=== PATIENT | female | born 1960 | race Caucasian/White ===

== ENCOUNTER → 2021-12-13 12:52 | Outpatient (CLI) | payer MEDICARE, MEDICAID, SELFPAY ==
--- NOTE | 2021-12-13 | DI.US.S_ITS ---
LIMITED ULTRASOUND OF RIGHT BREAST AND AXILLA: 12/13/2021 CLINICAL: Palpable right breast lump. Palpable right axilla lump. No prior exams were available for comparison. Color flow and real-time ultrasound of the right breast 11-12 o'clock, and axilla regions were performed. Noble scale images of the real-time examination were reviewed. There is a 0.8 cm x 0.6 cm x 0.8 cm irregular mass with a spiculated margin in the right breast at 11 o'clock anterior depth 1 cm from the nipple. This irregular mass is hypoechoic. This correlates with mammography findings. There also is a 1.4 cm x 1.5 cm x 1.6 cm irregular mass with a spiculated margin in the right breast at 12 o'clock middle depth. This correlates with mammography findings. Additionally, there is a 1.6 cm x 3.2 cm x 0.9 cm enlarged lymph node in the right axilla. This correlates with mammography findings. IMPRESSION: HIGHLY SUGGESTIVE OF MALIGNANCY The 0.8 cm x 0.6 cm x 0.8 cm irregular mass in the right breast at 11 o'clock anterior depth is highly suggestive of malignancy. The 1.4 cm x 1.5 cm x 1.6 cm irregular mass in the right breast at 12 o'clock middle depth is highly suggestive of malignancy. An ultrasound guided biopsy is recommended. The 1.6 cm x 3.2 cm x 0.9 cm enlarged lymph node in the right axillary tail is suggestive of malignancy. An ultrasound guided biopsy is recommended. This exam was interpreted at Station ID: [id number]. Electronically Signed By: John Corrales M.D. lc/:12/13/2021 14:33:05 letter sent: Biopsy Required Ultrasound BI-RADS: 5 Highly suggestive of malignancy
--- NOTE | 2021-12-13 | DI.MG.S_ITS ---
BILATERAL DIGITAL DIAGNOSTIC MAMMOGRAM 3D/2D: 12/13/2021 CLINICAL: Baseline by default, Right breast mass. No prior exams were available for comparison. Both breasts are heterogeneously dense, which may obscure small masses (category c / 51-75% glandular tissue). There is a biopsy site marker on the left breast. There is architectural distortion in the right breast at 11 o'clock anterior depth. This correlates as palpated. There also is an irregular lymph node in the right axillary tail. No other significant masses, calcifications, or other findings are seen in either breast. IMPRESSION: INCOMPLETE: NEEDS ADDITIONAL IMAGING EVALUATION The architectural distortion in the right breast at 11 o'clock anterior depth is indeterminate. An ultrasound is recommended. The irregular lymph node in the right axillary tail is indeterminate. Ultrasound report to follow. Based on the Tyrer Cuzick model (a risk assessment model) the patient's lifetime risk is 11.2% and her 10 year risk is 5.0%. According to the ACR, ACS, and NCCN guidelines, an annual breast MRI exam along with mammogram is recommended if the patient's lifetime risk is 20% or greater. This exam was interpreted at Station ID: [id number]. NOTE: For mammograms, a report in lay terms will be sent to the patient. Approximately 15% of breast malignancies will not be visualized mammographically. In the management of a palpable breast mass, a negative mammogram must not discourage biopsy of a clinically suspicious lesion. Electronically Signed By: John Corrales M.D. lc/:12/13/2021 14:29:43 ACR BI-RADS Category 0: Incomplete [id number]
== END ==
PROVIDERS: PCP Family Medicine; Referring Provider Family Medicine; Visit Provider Family Medicine
DX: N63.11 Unspecified lump in the right breast, upper outer quadrant (principal); N63.15 Unspecified lump in the right breast, overlapping quadrants; R59.0 Localized enlarged lymph nodes
CPT/HCPCS: 76642; 77066; G0279

== ENCOUNTER → 2022-01-14 14:01 | Outpatient (CLI) | payer MEDICARE, MEDICAID, SELFPAY ==
--- NOTE | 2022-01-14 | DI.MG.S_ITS ---
UNILATERAL RIGHT DIGITAL DIAGNOSTIC MAMMOGRAM 3D/2D: 01/14/2022 CLINICAL: Post clip placement. No prior exams were available for comparison. The right breast is heterogeneously dense, which may obscure small masses (category c / 51-75% glandular tissue). There is a marker clip in the appropriate position in the right breast posterior depth superior region seen on the mediolateral oblique view only. This marker clip placement is at the biopsy site. There also is a marker clip in the appropriate position in the right breast at 11 o'clock anterior depth. This marker clip placement is at the biopsy site. Additionally, there is a marker clip in the appropriate position in the right breast at 12 o'clock middle depth. This marker clip placement is at the biopsy site. IMPRESSION: POST PROCEDURE MAMMOGRAM FOR MARKER PLACEMENT There was a successful marker clip placement in the right breast posterior depth superior region seen on the mediolateral oblique view only. There was a successful marker clip placement in the right breast at 11 o'clock anterior depth. There was a successful marker clip placement in the right breast at 12 o'clock middle depth. Based on the Tyrer Cuzick model (a risk assessment model) the patient's lifetime risk is 11.2% and her 10 year risk is 5.0%. According to the ACR, ACS, and NCCN guidelines, an annual breast MRI exam along with mammogram is recommended if the patient's lifetime risk is 20% or greater. This exam was interpreted at Station ID: [id number]. NOTE: For mammograms, a report in lay terms will be sent to the patient. Approximately 15% of breast malignancies will not be visualized mammographically. In the management of a palpable breast mass, a negative mammogram must not discourage biopsy of a clinically suspicious lesion. Electronically Signed By: Fabricio coppola/papi:01/16/2022 20:12:15 ACR BI-RADS Category Post-procedure mammogram for marker placement
--- NOTE | 2022-01-14 | DI.US.S_ITS ---
ULTRASOUND GUIDED BIOPSY RIGHT BREAST WITH MARKING DEVICE INSERTED AND POST DIGITAL MAMMOGRAPHIC IMAGIN01/14/2022 CLINICAL: Right axillary node biopsy. PATIENT CONSENT: Risks (minor bleeding, infection, vasovagal reaction and repeat procedure), benefits and alternatives were explained to the patient and written informed consent was obtained. Correlation is made to exams dated: 01/14/2022 ultrasound biopsy, 01/14/2022 mammogram, 12/13/2021 ultrasound, 12/13/2021 mammogram - [facility], 02/15/2013 mammogram, and 02/03/2013 mammogram - [facility]. An ultrasound guided biopsy using real-time ultrasound was performed for the lymph node located in the right axillary tail. The skin was prepped in the usual manner. Local anesthetic was administered to the access site. A small incision was made in the breast. The abnormality was approached from the caudocranial aspect. A biopsy needle was placed adjacent to the abnormality under ultrasound guidance. Once the needle was documented to be in the correct location, three specimens were obtained using an Achieve automated firing device. A clip was inserted into the biopsy cavity. A skin adhesive was applied to the access site. Post procedure digital mammographic imaging demonstrates the location device at the targeted area. The specimens were sent to the laboratory for pathological analysis. IMPRESSION: ULTRASOUND GUIDED BIOPSY MALIGNANT Ultrasound guided biopsy of the lymph node in the right axillary tail was successful with no apparent post procedure complications. 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 Pathology results are concordant with imaging findings. This exam was interpreted at Station ID: [id number]. yovana Muñoz M.D., M.D./:01/22/2022 11:21:37
--- NOTE | 2022-01-14 | DI.US.S_ITS ---
MULTIPLE ULTRASOUND GUIDED BIOPSIES RIGHT BREAST USING VACUUM DEVICE WITH MARKING DEVICES INSERTED AND POST DIGITAL MAMMOGRAPHIC IMAGIN01/14/2022 CLINICAL: Two right breast mass. PATIENT CONSENT: Risks (minor bleeding, infection, vasovagal reaction and repeat procedure), benefits and alternatives were explained to the patient and written informed consent was obtained. No prior exams were available for correlation. An ultrasound guided biopsy using real-time ultrasound was performed for the solid mass located in the right breast at 11 o'clock anterior depth. This was described on the previous ultrasound report. The skin was prepped in the usual manner. Local anesthetic was administered to the access site. A small incision was made in the breast. The abnormality was approached from the lateral aspect. A biopsy needle was placed adjacent to the abnormality under ultrasound guidance. Once the needle was documented to be in the correct location, four specimens were obtained using the Mammotome biopsy system. The patient received additional local anesthetic during the procedure. A clip was inserted into the biopsy cavity. A skin adhesive was applied to the access site. Post procedure digital mammographic imaging demonstrates the location device at the targeted area. The specimens were sent to the laboratory for pathological analysis. A second ultrasound guided biopsy using real-time ultrasound was performed for the mass located in the right breast at 12 o'clock anterior depth. This was described on the previous ultrasound report. The skin was prepped in the usual manner. Local anesthetic was administered to the access site. A small incision was made in the breast. The abnormality was approached from the lateral aspect. A biopsy needle was placed adjacent to the abnormality under ultrasound guidance. Once the needle was documented to be in the correct location, four specimens were obtained using the Mammotome biopsy system. The patient received additional local anesthetic during the procedure. A clip was inserted into the biopsy cavity. Post procedure digital mammographic imaging demonstrates the location device at the targeted area. The specimens were sent to the laboratory for pathological analysis. IMPRESSION: ULTRASOUND GUIDED BIOPSY MALIGNANT Ultrasound guided biopsy of the solid mass in the right breast at 11 o'clock anterior depth was successful with no apparent post procedure complications. Pathology indicates malignant invasive lobular carcinoma (IL). Pathology results are concordant with imaging findings. Ultrasound guided biopsy of the mass in the right breast at 12 o'clock anterior depth was successful with no apparent post procedure complications. Pathology indicates malignant invasive lobular carcinoma (IL). Pathology results are concordant with imaging findings. This exam was interpreted at Station ID: [id number]. Fabricio Grady M.D. John coppola,yovana/papi:01/22/2022 11:20:07
--- NOTE | 2022-01-14 | PATH_ITS ---
[facility] Accession Number: [id number] No. of containers..03 Tissue . 01 Material submitted: . PART A: breast - RIGHT BREAST MASS 11:00 1 CM FN PART B: breast - RIGHT BREAST MASS 12:00 4 CM FN PART C: lymph node - RIGHT AXILLA LYMPH NODE . 01 Clinical history: . UNSPECIFIED LUMP IN THE RIGHT BREAST X3 . 01 Diagnosis: A. Right Breast Mass, 11 o'clock, 1 cm from the Nipple, Biopsy: Invasive (lobular) carcinoma, grade 2 of 3 ([place] combined histologic grade, total score 6/9) with the following features: 1. Nuclear pleomorphism: Intermediate. (2/3) 2. Mitotic rate: Low. (1/3) 3. Tubular differentiation: None. (3/3) 4. Size of invasive carcinoma: present on multiple cores, single largest dimension of at least 7 mm in this sample. 5. Ductal carcinoma in situ: Not present. 6. Calcifications: Not present. 7. Lymphatic invasion: Absent in this specimen. 8. Prognostic markers: -Estrogen receptor status: Positive (>90% tumor cells staining, staining intensity: Strong). -Progesterone receptor status: Positive (>95% tumor cells staining, staining intensity: Strong). -HER2 status: Negative for protein overexpression by immunohistochemistry (0). . B. Right Breast Mass, 12 o'clock, 4 cm from the Nipple, Biopsy: Invasive (lobular) carcinoma, grade 2 of 3 ([place] combined histologic grade, total score 6/9) with the following features: 1. Nuclear pleomorphism: Intermediate. (2/3) 2. Mitotic rate: Low. (1/3) 3. Tubular differentiation: None. (3/3) 4. Size of invasive carcinoma: present on multiple cores, single largest dimension of at least 5.5 mm in this sample. 5. Ductal carcinoma in situ: Not present. 6. Calcifications: Present in association with invasive carcinoma. 7. Lymphatic invasion: Absent in this specimen. 8. Prognostic markers: -Estrogen receptor status: Positive (more than 95% tumor cells staining, staining intensity: Strong). -Progesterone receptor status: Positive (more than 95% tumor cells staining, staining intensity: Strong). -HER2 status: Negative for protein overexpression by immunohistochemistry (0). . C. Right Axillary Lymph Node, Biopsy: Metastatic lobular carcinoma involving lymphoid tissue. Size of largest metastatic deposit: at least 1 mm. . COMMENT: The invasive carcinoma in both parts A and B are histologically and immunophenotypically similar. [facility] 01/17/2022 1658 Local . 01 Electronically signed: . Caroline Curry MD, Pathologist NPI- [id number] . 01 Gross description: . Received three formalin-filled containers, each labeled with the patient's name: . A. In a container labeled RT 11 o'clock 1 cm FN breast, the specimen is received with a plastic filter in container, sample loose in container and consists of multiple light yellow-patton portions of soft tissue which range in size from less than 0.1 cm to 0.4 x 0.2 x 0.2 cm. The specimen is filtered, wrapped, and entirely submitted in cassette A. B. In a container labeled RT breast 12 o'clock 4 cm FN, the specimen is received with a plastic filter in container, sample loose in container and consists of multiple fragments of light yellow-patton tissue and blood which range in size from less than 0.1 cm to 0.5 x 0.4 x 0.3 cm. The specimen is filtered and entirely submitted in cassette B. C. In a container labeled RT axilla LN, are three extremely tiny fragments of light chong-patton tissue which measure 0.1 x 0.1 x 0.1 cm in aggregate. All fragments are totally submitted in cassette C. . Possible collection date and time per requisition: 01/14/22 at 16:14. Total fixation time: Approximately 12 hours. ([id number]) /[facility] 01/15/2022 0236 Local . 01 Microscopic: . Parts A and B: Beta-catenin and e-cadherin are performed in order to assess the invasive carcinoma, with appropriately staining external controls. In both parts, there is loss of membranous staining of the invasive carcinoma, in support of lobular phenotype. . In part C, Bhupinder immunostain highlights the metastatic carcinoma. . Crushing artifact in part A limits histologic assessment. . Predictive marker immunohistochemical studies are performed on blocks A1 and B1 with the invasive carcinoma showing the following results: Part A: - Estrogen receptor status: Positive (more than 90% tumor cells staining, staining intensity: Strong). - Progesterone receptor status: Positive (more than 95% tumor cells staining, staining intensity: Strong). - HER2 status: Negative for protein overexpression by immunohistochemistry (0). . Part B: - Estrogen receptor status: Positive (more than 95% tumor cells staining, staining intensity: Strong). - Progesterone receptor status: Positive (more than 95% tumor cells staining, staining intensity: Strong). - HER2 status: Negative for protein overexpression by immunohistochemistry (0). . Cold ischemic time is <5 minutes. The scoring criteria for breast biomarkers by immunohistochemistry is based on the ASCO/CAP guidelines (Zohreh AC et al, J Clin Oncol: 2017Oct 27;36(20):6481-2221 and Robles ME et al, Arch Pathol Lab Med: 2009;134(6):907-22). Deparaffinized sections of formalin fixed tissue (along with appropriate positive controls) are incubated with the above antibody(s). Using the automated Rathbun stainer, tissue is incubated with the designated antibody which is then localized by a non-biotin, dual polymer detection system. The external controls are reviewed for appropriate reactivity and found to be adequate. Results on the target cell population are indicated above. These tests have not been validated on decalcified tissue. This test was developed and its performance characteristics determined by [employer]. It has not been cleared or approved by the U.S. Food and Drug Administration. The FDA has determined that such clearance or approval is not necessary. This test is used for clinical purposes. It should not be regarded as investigational or for research. . 01 Pathologist provided ICD-10: C50.919 . 01 CPT . 334367, 740400, 887621, T04697, O52007, 401553, [id number], [id number] Specimen Comment: A courtesy copy of this report has been sent to [phone] Performed at: 01 [facility] [address], [place], [place] [id number] MD Hunter Evans MD Phone: [phone]
== END ==
PROVIDERS: PCP Family Medicine; Referring Provider Family Medicine; Visit Provider Family Medicine
DX: C50.411 Malignant neoplasm of upper-outer quadrant of right female breast (principal); C50.811 Malignant neoplasm of overlapping sites of right female breast; C77.3 Secondary and unspecified malignant neoplasm of axilla and upper limb lymph nodes; Z17.0 Estrogen receptor positive status [ER+]
CPT/HCPCS: 19083; 19084; 38505; 76942; 77065

== ENCOUNTER → 2022-02-12 10:14 | Outpatient (CLI) | payer MEDICARE, MEDICAID, SELFPAY ==
--- NOTE | 2022-02-12 10:16 | DI.CT.S_ITS ---
PROCEDURE: CT CHEST ABD PEL W CON INDICATIONS: Breast cancer TECHNIQUE: After the administration of oral and intravenous contrast, axial sections acquired from the supraclavicular neck to the pubic symphysis. Coronal and sagittal reformats were performed. For radiation dose reduction, the following was used: automated exposure control, adjustment of mA and/or kV according to patient size. COMPARISON: [facility], CT, KUB - CT (PNL), 01/13/2013, 12:40. CT, CT CHEST WO CON, 12/10/2016, 10:47. [facility], US, US ABDOMEN COMPLETE, 09/05/2020, 12:15. [facility], CT, CT CHEST WITH CONTRAST, 09/05/2020, 12:46. FINDINGS: Image quality: Excellent. CHEST: Lower Neck: No adenopathy. Thyroid: Unremarkable. Axillae: There is mildly prominent lymph node with a biopsy clip in the right axilla. There is a 1.0 cm lymph node also in the right axilla level one. Nonenlarged level two lymph nodes are seen. No left axillary adenopathy. Chest Wall: Biopsy changes in the right breast. No abnormal chest wall mass. Lungs and Airways: Central and peripheral airways are normal. No suspicious nodules or consolidations Pleura: No pneumothorax or pleural effusions. Heart: Heart size is normal. No pericardial effusion. Moderate coronary artery calcification. Thoracic Vessels: The aorta and pulmonary arteries demonstrate normal size. Mediastinum and Lola: No enlarged lymph nodes. Esophagus: No wall thickening. No hiatal hernia. ABDOMEN: Liver: The liver is normal size and mildly decreased in overall attenuation. A 1 cm hypodensity is present anterior in segment two, previously characterized to be a cyst. No other liver lesions. Gallbladder: Normal. Biliary ducts: Nondilated. Pancreas: Normal. Spleen: Normal size. Adrenal Glands: 1.7 cm low-density left adrenal mass, stable. No right adrenal nodules. Kidneys and Ureters: Symmetric enhancement. No nephrolithiasis or hydronephrosis. No hydroureter. Stomach and Bowel: Stomach and small bowel loops are within normal limits. The mid to distal colon is diffusely decompressed. Occasional distal sigmoid diverticulosis. The appendix was not seen Peritoneum: No abnormal intraperitoneal fluid. No free air. Ventral Wall: No hernia. Abdominal Nodes: No retroperitoneal or mesenteric adenopathy by size criteria. Vessels: Aorta and inferior vena cava are normal in size. Moderate abdominal aortic atherosclerotic calcification. Retro aortic left renal vein. PELVIS: Pelvic Organs: Vertically oriented uterus is age-appropriate. Normal ovarian tissue. No suspicious adnexal masses. Bladder: Normal. Pelvic Nodes: Indeterminate 1.1 cm irregular nodule in the left common femoral/inguinal region with mild surrounding inflammatory changes. No other enlarged pelvic lymph nodes are seen. Miscellaneous: No inguinal hernias are seen. Bones: There is severe scoliosis with degenerative endplate sclerosis at multiple levels. No suspicious bone lesions or vertebral body fractures. IMPRESSION: 1. Biopsied right breast lesions and biopsied mild right axillary adenopathy. 2. Indeterminate inflammatory nodule in the left common femoral region, possibly lymph node but no other pelvic adenopathy is seen. Comparison to remote prior CT demonstrated an inguinal hernia in this region which is no longer present, and therefore this finding may be secondary to hernia repair. 3. No other areas of adenopathy or metastatic disease in the chest, abdomen, or pelvis. 4. 1.7 cm left adrenal nodule, probably an adenoma. This is stable compared to recent priors and minimally enlarged compared to remote prior study. 5. Hepatic steatosis. Dictated by: Karena Brannon M.D. on 02/12/2022 at 14:10 Approved by: Karena Brannon M.D. on 02/12/2022 at 14:29
== END ==
PROVIDERS: PCP Family Medicine; Referring Provider Internal Medicine Hematology & Oncology; Visit Provider Internal Medicine Hematology & Oncology
DX: C50.911 Malignant neoplasm of unspecified site of right female breast (principal); E27.9 Disorder of adrenal gland, unspecified; K76.0 Fatty (change of) liver, not elsewhere classified
CPT/HCPCS: 71260; 74177; Q9967

== ENCOUNTER → 2022-02-14 08:37 | Outpatient (CLI) | payer MEDICARE, MEDICAID, SELFPAY ==
--- NOTE | 2022-02-14 08:39 | DI.NM.S_ITS ---
PROCEDURE: NM BONE SCAN WHOLE BODY RADIOPHARMACEUTICAL: 21.5 mCi Tc-99m MDP IV. INDICATIONS: Breast cancer TECHNIQUE: Delayed whole-body scintigrams were obtained approximately 3-4 hours after intravenous injection of radiotracer. Anterior and posterior views were acquired from vertex to feet. Additional left and right oblique views of the spine were obtained. COMPARISON: [facility], CT, CT CHEST ABD PEL W CON, 02/12/2022, 12:03. FINDINGS: Physiologic uptake is noted within the kidneys and bladder. Marked S-shaped scoliotic curvature is present within the thoracolumbar spine. Minimal scattered areas of presumed degenerative uptake are noted within the shoulders and feet. There is an appearance of mild increased uptake within the right lateral 7th 8th and 9th ribs. There is no abnormality within this region on CT scan of 02/12/2022. IMPRESSION: Small areas of presumed degenerative uptake. Mild increased uptake within the posterior right 7th, 8th and 9th ribs possibly artifactual as no corresponding abnormality is identified on CT. Attention to this region on follow-up imaging is recommended as metastatic disease cannot be definitively excluded. Dictated by: Humera Cox M.D. on 02/14/2022 at 16:02 Approved by: Humera Cox M.D. on 02/14/2022 at 16:07
== END ==
PROVIDERS: PCP Family Medicine; Referring Provider Internal Medicine Hematology & Oncology; Visit Provider Internal Medicine Hematology & Oncology
DX: C50.911 Malignant neoplasm of unspecified site of right female breast (principal)
CPT/HCPCS: 78306; A9503

== ENCOUNTER → 2022-02-20 09:31 | Outpatient (CLI) | payer MEDICARE, MEDICAID, SELFPAY ==
[2022-02-20 11:11] LABS: COVID19 -Nasal RAPID Negative (Negative)
== END ==
PROVIDERS: PCP Family Medicine; Visit Provider Surgery
DX: Z01.812 Encounter for preprocedural laboratory examination (principal); Z20.822 Contact with and (suspected) exposure to COVID-19
CPT/HCPCS: 87635

== ENCOUNTER 2022-02-21 10:48 | Day surgery (SDC) | payer MEDICARE, MEDICAID, SELFPAY ==
[2022-02-18 07:51] VITALS: BMI 21.3
--- NOTE | 2022-02-21 | PATH_ITS ---
[facility] Accession Number: [id number] . 01 Material submitted: . PART A: breast - RIGHT BREAST TISSUE PART B: lymph node - RIGHT AXILLARY NODES . 01 Diagnosis: A. Right Breast Tissue, Mastectomy: Invasive (lobular) carcinoma, with pleomorphic features, grade 3 of 3 (Mary Kate combined histologic grade, total score 8/9) with the following features: 1. Tumor size (invasive component): 8.2 cm by gross measurement. 2. Nuclear pleomorphism: High. (3/3); see comment. 3. Mitotic rate: Intermediate. (2/3); see comment. 4. Tubular differentiation: None. (3/3) 5. Ductal carcinoma in situ: Present, low to intermediate grade, without necrosis, and the following extent: - Present on more than one slide (5 slides with DCIS), spanning approximately at least 41 mm. 6. Calcifications: Present, in association with invasive carcinoma, ductal carcinoma in situ, and benign breast tissue. 7. Lymphatic invasion: Present. 8. Resection margins: - Invasive carcinoma with the closest distances to margins as follows: - Superficial inferior: Less than 0.5 mm (block A5). - Superficial superior: 1.8 mm (A10). - All remaining margins: More than 2 mm. - DCIS with the closest distances to margins as follows: - Superficial inferior: see comment. - All remaining margins: More than 2 mm. 9. Prognostic markers: Performed on prior biopsy ([id number], 01/15/2022), per report: - Estrogen receptor: Positive. - Progesterone receptor: Positive. - HER2: Negative by immunohistochemistry (0). - HER2 repeated on mastectomy specimen, block A2: Equivocal for protein overexpression by immunohistochemistry (2+); FISH studies for HER2 gene amplification are pending and the results will be reported in an addendum. 10. Regional lymph node status: - One intramammary lymph node, negative for carcinoma (0/1). - Nine out of nine lymph nodes, positive for carcinoma (9/9) (see right axillary node dissection, part B). - Size of largest metastatic deposit: 16 mm. - Extranodal extension: Focally present. 11. Additional findings: - Skin and nipple invaded by invasive carcinoma (no ulceration seen). - Skeletal muscle and/or chest wall are not present for evaluation. - Biopsy site changes are present. 12. Pathologic stage: pT3 pN2a. . B. Right Axillary Lymph Nodes, Dissection: Nine out of nine lymph nodes, positive for carcinoma (9/9). Size of largest metastatic deposit: 16 mm. Extranodal extension: Focally present. . COMMENT: At the superficial inferior margin (Block A5), over a span of 3 mm, low- to intermediate-grade DCIS is seen within 0.5 mm from ink. Although not technically ink on DCIS, in one focus, it is very close to ink (less than few fibroblasts), and appears cauterized. . Most of the invasive carcinoma consists of grade 2 invasive lobular carcinoma (with intermediate nuclear grade and low mitotic activity); however, scattered foci of higher grade morphology consisting of a moderate degree of mitotic rate and high nuclear pleomorphism are noted. They are evaluated with e-cadherin and demonstrate aberrant staining which is interpreted as negative. These areas are interpreted as invasive lobular carcinoma with pleomorphic features. V 02/28/2022 1449 Local . 01 Electronically signed: . Caroline Curry MD, Pathologist NPI- [id number] . 01 Gross description: . A. Received: In formalin, labeled with the patient's name, and right breast tissue long stitch lateral. Specimen: Oriented right breast simple mastectomy with presumed nipple areolar complex. Weight: 455 g. Measurement: 4.6 cm anterior to posterior, 14.7 cm medial to lateral, and 14.5 cm superior to inferior. Skin ellipse: Present measuring 14.5 x 10.7 cm with a patton congested cutaneous surface; no ulceration or Peau d'Clifford noted. Nipple/areola: 1.0 x 0.9 cm everted nipple with an ill-defined areola measuring approximately 3.1 x 2.3 cm. The nipple-areola complex is diffusely covered by friable, patton-brown, verrucoid projections on the skin of the nipple and areola in an area measuring 4.1 x 2.2 cm and located 2.7 cm from the nearest supero-medial skin margin. The nipple is firm upon palpation (photographs taken). Axillary tail: Submitted as part B. Margins: The skin ellipse is oriented by the surgeon with a long lateral stitch per the requisition. A second shorter double stitch is identified at the superior aspect of the ellipse without designation per the requisition or the container. The posterior surface is covered by disrupted fascia and is inked black. The superficial soft tissue margins are unremarkable, adjacent to the skin, and are inked blue for superficial superior and green for superficial inferior. Sliced: From lateral to medial into 18 slices. Lesion: One contiguous lesion, appears to involve upper inner and outer quandrants, and extending into lower inner quadrant. Lesion #1: Description: Large yellow to white, hard lesion located centrally with a hemorrhagic biopsy cavity within slices 12-14 and located 0.4 cm from the nearest anterior-superior margin. No biopsy clip is identified. Size: 8.2 x 6.9 x 2.7 cm. Slices involved: Slices 4-17 located throughout the central area of the breast. Distance to margins: 0.4 cm to the superficial superior margin, 0.9 cm from the posterior-inferior junction, 1.3 cm from the posterior margin, 0.5 cm from the superficial inferior margin, and grossly involves the skin, nipple, and areolar complex, but not at skin margins. Other: The remaining cut surfaces are yellow to white fibroadipose tissue with fibrous tissue occupying less than 10% of the cut surface. A single patton, well-circumscribed nodule is identified within slices 1 and 2 consistent with lymph node candidate measuring 0.6 x 0.6 x 0.5 cm. No additional lesions are identified. Fixation time: The specimen was removed on 02/21/22, time not provided, cold ischemic time cannot be calculated, total fixation time is approximately 55 hours. Veneer Splicer sections are submitted as follows: A1-A2: Entire nipple, bisected. A3: Slice 11 lesion to skin. A4: Slice 6 lesion to posterior margin. A5: Slice 9 lesion to closest superficial-inferior margin. A6-A8: Slice 10 lesion from posterior to superficial superior margins (A6-lesion to posterior margin, A7-lesion no margins, A8-lesion to anterior superior margin). A9: Slice 11 lesion to superficial superior margin. A10: Slice 12 biopsy site to nearest superficial superior margin. A11: Slice 13 biopsy site to superficial superior margin. A12: Slice 14 biopsy site to superficial superior margin. A13: Slice 11 lesion to superficial inferior margin. A14: Slice 3 no lesion lateral. A15: Slice 18 no lesion medial. A16: Slice 1 and 3 bisected lymph node candidate. A17: Upper outer quadrant no lesion. A18: Lower outer quadrant no lesion. A19: Upper inner quadrant no lesion. A20: Lower inner quadrant no lesion. Additional sections are submitted as follows, after review by Dr. Curry: A21-A22: Perpendicular slice 1 lateral margin. A23: Veneer Splicer slice 2 grossly negative. A24: Veneer Splicer slice 15 lesion to superficial superior margin. A25: Veneer Splicer slice 16 lesion to superficial superior margin. A26: Veneer Splicer slice 17 lesion to posterior margin. A27-A28: Veneer Splicer slice 18 medial margin perpendicular. A29: Veneer Splicer slice 5 lesion to superficial inferior margin. A30: Veneer Splicer slice 5 lesion to superficial inferior skin margin. A31: Veneer Splicer slice 14 lesion to superficial superior skin margin. ([id number]) B. Received in formalin, labeled with the patient's name and right axillary nodes, and consists of multiple fragments of unoriented yellow lobulated fibroadipose tissue with no attached skin, weighing 87 g and aggregating to 9.3 x 8.7 x 2.5 cm. Palpation reveals eight white to patton, firm lymph node candidates ranging from 0.5 cm to 2.1 cm in greatest dimension. Also identified within the adipose is a large area possibly consistent with matted lymph nodes versus one lymph node measuring measuring 6.1 x 2.7 x 1.5 cm. Sectioning this area reveals a vision biopsy clip and fat in association with grossly positive lymph node of approximate largest diameter of 1.6 cm. Veneer Splicer sections are submitted as follows: B1: Single serially sectioned lymph node candidate. B2: Single bisected lymph node candidate. B3: Single bisected lymph node candidate. B4: Single bisected lymph node candidate. B5: Single bisected lymph node candidate. B6: Single bisected lymph node candidate. B7: Single bisected lymph node candidate. B8: Single intact lymph node candidate. B9-B10: Veneer Splicer one lymph node versus matted area (biopsy site in B9). The specimen is removed on 02/21/22, time not provided, cold ischemic time cannot be calculated. Total fixation time is approximately 55 hours. ([id number]) /FRR 02/28/2022 1449 Local . 01 Microscopic: . A panel of immunostains is performed on block A5 in order to assess the intraductal neoplastic proliferation at the margin, as well as foci suspicious for lymphovascular space invasion close to the superficial inferior margin. The following represents the immunohistochemical findings: . D2-40: Present around invasive carcinoma within lymphatic system, not at, but close to superficial inferior margin. P63: Negative around areas of lymphovascular space invasion. E-cadherin and beta-catenin: Positive within intraductal proliferation, in support of ductal carcinoma in situ, and negative within the invasive carcinoma, in support of lobular phenotype. . PIOTR immunostain is obtained on block A11 in order to evaluate the invasive lobular carcinoma at the posterior margin adjacent to extensive histiocytic inflammation due to biopsy site, and is neagtive at the areas of interest/at the margin. . Within block A2, areas of higher grade morphology are evaluated for ductal phenotype with E-cadherin immunostain. Wisp, weak and discontinuous staining is present, which is interpreted as negative and/or aberrant immunoreactivity, in support of pleomorphic features in a lobular carcinoma. The rest of the invasive carcinoma is entirely negative. . Her2 predictive marker immunohistochemical study is repeated on block A2, to evaluate areas of higher grade morphology within the invasive carcinoma, and shows the following results: . Her2 (4B5) (repeated, block A2): Equivocal for protein overexpression by immunohistochemistry (2+). FISH studies for Her2 gene amplification are pending, and the results will be reported in an addendum. . Cold ischemic time is <5 minutes. The scoring criteria for breast biomarkers by immunohistochemistry is based on the ASCO/CAP guidelines (Zohreh AC et al, J Clin Oncol: 2017Oct 27;36(20):1366-7017 and Robles ME et al, Arch Pathol Lab Med: 2009;134(6):907-22). Deparaffinized sections of formalin fixed tissue (along with appropriate positive controls) are incubated with the above antibody(s). Using the automated Domino stainer, tissue is incubated with the designated antibody which is then localized by a non-biotin, dual polymer detection system. The external controls are reviewed for appropriate reactivity and found to be adequate. Results on the target cell population are indicated above. These tests have not been validated on decalcified tissue. This test was developed and its performance characteristics determined by [facility]. It has not been cleared or approved by the U.S. Food and Drug Administration. The FDA has determined that such clearance or approval is not necessary. This test is used for clinical purposes. It should not be regarded as investigational or for research. . 01 Pathologist provided ICD-10: C50.811 . 01 CPT . 254707, 264041, C36515, T48123, 327936 Specimen Comment: A courtesy copy of this report has been sent to [phone] Performed at: 01 [facility] [address] [place] [address], [place], [place] [id number] MD Hunter Evans MD Phone: [phone]
[2022-02-21 11:41] VITALS: BMI 21.3
[2022-02-21] MEDS: LACTATED RINGERS 1,000 ML 100 ML IV (12:12)
[2022-02-21] MEDS: ALBUTEROL/IPRATROPIUM 3 ML AMPUL INH ×2 (12:12→16:11)
--- NOTE | 2022-02-21 13:17 | PM.PREOP ---
Pre-operative Note Interval Note History & Physical reviewed/Exam performed by Physician: Yes Changes to H&P: No
[2022-02-21] MEDS: CEFAZOLIN 2 GM/100 ML PREMIX 100 ML IV (13:54)
[2022-02-21] MEDS: BUPIVACAINE 0.25% (PF) VIAL 30 ML INJ (14:08)
--- NOTE | 2022-02-21 14:19 | SUR.OPER ---
Supine on padded OR bed, gel donut, arms secured on padded arm boards at <90 degrees abduction, legs uncrossed, safety belt at thigh, tape over blanket over lower legs. Right arm bent at elbow restin on padded armboard parallel to head supported with gel pads at forearm and wrist.
[2022-02-21 15:12] VITALS: BP 176/97; PULSE 102; RESP 27; TEMP 36.7; O2SAT 91
[2022-02-21 15:17] VITALS: BP 145/89; PULSE 89; RESP 17; O2SAT 97
[2022-02-21 15:22] VITALS: BP 163/96; PULSE 88; RESP 15; TEMP 36.6; O2SAT 97
[2022-02-21] MEDS: fentaNYL 100 MCG/2 ML INJ 50 MCG IV (15:28)
[2022-02-21] MEDS: OXYCODONE IR 5 MG TABLET PO ×2 (15:33→15:51)
--- NOTE | 2022-02-21 15:39 | P.OP_ITS ---
Operative Date/Time/Diagnoses Date of procedure: 02/21/22 Time of procedure: 15:39 Pre-op diagnosis: Right breast cancer Post-op diagnosis: same Procedure & Clinicians Procedure: Right mastectomy and axillary lymph node dissection Same procedure as scheduled: Yes Indications: 61-year-old woman with biopsy-proven right breast cancer and biopsy-proven positive axillary node here for mastectomy and axillary dissection Surgeon: Derian Can Anesthesia Type: General Operative Notes Findings: Large central tumor. Multiple firm lymph nodes within the axilla Specimen(s): other (Right mastectomy. Axillary content) Estimated Blood Loss (mL): 50 Procedure in detail: Patient was brought to the operating room placed supine on the table. Bilateral lower extremity compression devices were applied. She received 2 g of Ancef prior to skin incision. She was intubated with an endotracheal tube. She was then prepped and draped in sterile fashion. Time-out was performed. I injected 1 mL of methylene blue diluted with 4 ml saline into the periareolar tissue and massaged it into the breast for 5 minutes. An elliptical incision around the nipple areola complex was made with the knife. The subcutaneous tissue was divided with electrocautery. Skin flaps were raised to separate the breast tissue from the skin along the subdermal plexus. The dissection was extended superior to the clavicle, medial to the sternum, inferior the the inframamary fold and lateral to the anterior border of the latisimus dorsi. Next the breast tissue was from the underlying pectoralis fascia. The breast was passed off the field marked short stitch superior long stitch lateral. The anterior flap was thick compared to the others and therefore an additional margin, anterior margin was taken stitch avina the true margin. The boundaries of the axilla were defined the lateral edge of the pectoralis, the latissimus and the axillary vein. Along the chest wall the neurovascular structures were identified and protected. The axillary content lateral and beneth the pectoralis minor up to the level of the axillary vein was then skelonized using sharp dissection and hemoclips. The axillary content contained multiple firm lymph nodes. A 19 Turkmen Viral drain was placed into the cavity and secured. The wound was copiously irrigated and homeostasis was ensured. The mastectomy was closed with 3 0 Vicryl for the subcutaneous tissue. There was minimal subcutaneous tissue and therefore skin vineet were used to close the skin. Patient tolerated procedure well she emerged from anesthesia was extubated and transferred to recovery room in stable condition. Complications: none Post-operative Condition: stable Disposition: same day surgery
[2022-02-21 15:42] VITALS: BP 157/81; PULSE 78; RESP 25; TEMP 36.6; O2SAT 97
== END 2022-02-21 16:50 | disposition home or self-care (01) ==
PROVIDERS: PCP Family Medicine; Referring Provider Surgery; Visit Provider Surgery
PROC: 0HTT0ZZ Resection of Right Breast, Open Approach (ICD-10-PCS; CPT 19303; principal; 2022-02-21 12:30)
DX: C50.811 Malignant neoplasm of overlapping sites of right female breast (principal); Z17.0 Estrogen receptor positive status [ER+]; F17.210 Nicotine dependence, cigarettes, uncomplicated; J44.9 Chronic obstructive pulmonary disease, unspecified; E03.9 Hypothyroidism, unspecified; C77.3 Secondary and unspecified malignant neoplasm of axilla and upper limb lymph nodes
CPT/HCPCS: 19307; J0690; J1100; J2405; J2704; J3010

== ENCOUNTER → 2022-03-10 09:12 | Outpatient (CLI) | payer MEDICARE, MEDICAID, SELFPAY ==
--- NOTE | 2022-03-10 09:14 | DI.ECHO.S_ITS ---
[facility] +---------+ : : [address] : : [place], [place] : : : : [id number] : : : : Phone: [phone]+ Echocardiogram Report + + :Name: BETH CARRERO Study Date: 03/10/2022 Height: 65 in : :[facility] ReadingLocation: Weight: 132 lb : : Gender: Female BSA: 1.7 m2 : :: 1960 Age: 61 yrs BP: 148/84 mmHg: :Reason For Study: BREAST CANCER : :Ordering Physician: ELIZABETH, : :LYDIA Performed By: Kristi Lowery : :Referring: LYDIA JOHNSON : + + Interpretation Summary Normal left ventricle size with ejection fraction 55-60%. Left ventricular global longitudinal strain average is -17.8%. Procedure: A two-dimensional transthoracic echocardiogram with color flow and Doppler was performed in limited views only to assess left venticular function.. The study quality was technically adequate. There is no prior echocardiogram noted for this patient. The patient was in sinus rhythm with heart rates between 68-72 bpm during the exam. Left Ventricle: The left ventricle is normal in size and wall thickness. The ejection fraction is estimated to be 55-60%. Left ventricular global longitudinal strain average is -17.8%. Right Ventricle: The right ventricle is normal in size and function. Atria: The left atrium grossly appears normal in size. Right atrial size is normal. Aortic Valve: The aortic valve is trileaflet. The aortic valve opens well. Tricuspid Valve: The tricuspid valve leaflets are thin and pliable. There is trace tricuspid regurgitation. Pulmonary artery pressures cannot be estimated because of the lack of a measurable TR jet velocity. Great Vessels: The IVC is of normal diameter and collapses greater than 50% with a sniff. This suggests a low right atrial pressure of 3 mm Hg. Pericardium/ Pleura There is no pericardial effusion. There is no pleural effusion. MMode/2D Measurements & Calculations LVIDd: 5.1 cm LA A4 area: 17.3 cm2 LVIDs: 3.8 cm LA length (vol): 5.1 cm FS: 25.9 % EPSS: 0.46 cm IVSd: 0.95 cm LVPWd: 0.95 cm LV gomez. diameter/BSA (cm/m^2): 3.1 LV sys. diameter/BSA (cm/m^2): 2.3 RA long axis: 4.7 cm RVD1 (basal): 3.2 cm RA area: 14.7 cm2 TAPSE: 2.0 cm RA vol: 38.6 ml RA : 23.3 ml/m2 IVC diam: 0.60 cm Electronically signed by: Maria Eugenia Stockton on Reading Physician:03/10/2022 01:26 PM
== END ==
PROVIDERS: PCP Family Medicine; Referring Provider Internal Medicine Hematology & Oncology; Visit Provider Internal Medicine Hematology & Oncology
DX: C50.911 Malignant neoplasm of unspecified site of right female breast (principal); I42.7 Cardiomyopathy due to drug and external agent; Z20.822 Contact with and (suspected) exposure to COVID-19
CPT/HCPCS: 87635; 93307; 93356; C9803

== ENCOUNTER → 2022-03-10 11:10 | Day surgery (SDC) | payer MEDICARE, MEDICAID, SELFPAY ==
[2022-03-10 11:38] VITALS: BP 170/87; PULSE 73; RESP 16; TEMP 36.8; O2SAT 98; BMI 21.9
[2022-03-10 11:48] LABS: COVID19 -Nasal RAPID Negative (Negative)
--- NOTE | 2022-03-10 12:33 | SUR.PREOP ---
Pt. surgery was cancelled due to infection . dr. Arteaga ordered antibiotics and pain meds and applied dressing. pt. to follow up with Dr. Can.
== END | disposition home or self-care (01) ==
PROVIDERS: PCP Family Medicine; Referring Provider Surgery; Visit Provider Surgery
CPT/HCPCS: 87635; C9803

== ENCOUNTER → 2022-03-28 09:26 | Outpatient (CLI) | payer MEDICARE, MEDICAID, SELFPAY | PROVIDERS: PCP Family Medicine; Referring Provider Surgery; Visit Provider Surgery | DX: T81.89XA Other complications of procedures, not elsewhere classified, initial encounter (principal); C50.911 Malignant neoplasm of unspecified site of right female breast; Z90.11 Acquired absence of right breast and nipple; F17.210 Nicotine dependence, cigarettes, uncomplicated | CPT/HCPCS: 11042; 87070; 87075; 87205; 99203; 99213 ==

== ENCOUNTER → 2022-04-04 13:46 | Outpatient (CLI) | payer MEDICARE, MEDICAID, SELFPAY | PROVIDERS: PCP Family Medicine; Referring Provider Surgery; Visit Provider Nurse Practitioner Family | DX: S21.001A Unspecified open wound of right breast, initial encounter (principal); T81.89XA Other complications of procedures, not elsewhere classified, initial encounter; C50.911 Malignant neoplasm of unspecified site of right female breast; Z90.11 Acquired absence of right breast and nipple; F17.210 Nicotine dependence, cigarettes, uncomplicated | CPT/HCPCS: 11042 ==

== ENCOUNTER 2022-04-14 22:48 | Inpatient (IN) | payer MEDICARE, MEDICAID, SELFPAY ==
--- NOTE | 2022-04-14 22:49 | DI.RAD.S_ITS ---
PROCEDURE: XR ELBOW LT MIN 3V INDICATIONS: Fracture TECHNIQUE: 3 views of the elbow were acquired. COMPARISON: None. FINDINGS: Bones: There is a comminuted and displaced olecranon fracture. Soft tissues: Effusion is difficult to evaluate secondary to positioning. However, there is definite appearance of soft tissue edema at the elbow.. No suspicious soft tissue calcifications. IMPRESSION: Comminuted displaced olecranon fracture with soft tissue edema. Dictated by: Humera Cox M.D. on 04/14/2022 at 23:51 Approved by: Humera Cox M.D. on 04/14/2022 at 23:52
--- NOTE | 2022-04-14 22:49 | DI.RAD.S_ITS ---
PROCEDURE: XR HIP W PEL IF DONE LT 2V INDICATIONS: fall with pain, shortening and external rotation TECHNIQUE: AP pelvis with lateral view(s) of the left hip(s). COMPARISON: None. FINDINGS: Bones: There is a impacted and displaced intertrochanteric left femoral fracture. There is lateral angulation of the proximal fragment overlapping the distal fragment. Soft tissues: The visualized bowel gas pattern is normal. No suspicious soft tissue calcifications. IMPRESSION: Impacted and displaced left intertrochanteric fracture. Dictated by: Humera Cox M.D. on 04/14/2022 at 23:49 Approved by: Humera Cox M.D. on 04/14/2022 at 23:50
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
--- NOTE | 2022-04-14 22:50 | DI.RAD.S_ITS ---
PROCEDURE: XR CHEST 1V INDICATIONS: trauma TECHNIQUE: One view of the chest was acquired. COMPARISON: [facility], CT, CT CHEST ABD PEL W CON, 02/12/2022, 12:03. FINDINGS: Surgical changes and devices: Clips are noted overlying the right axilla. Lungs and pleura: Lungs are clear. No pleural effusions or pneumothorax. Mediastinum: Mediastinal contours appear normal. Heart size is enlarged. Bones and chest wall: No suspicious bony lesions. Overlying soft tissues appear unremarkable. IMPRESSION: No acute pulmonary process. Dictated by: Humera Cox M.D. on 04/14/2022 at 23:50 Approved by: Humera Cox M.D. on 04/14/2022 at 23:51
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
[2022-04-14 23:00] VITALS: PULSE 75; O2SAT 98
[2022-04-14 23:02] VITALS: BP 162/84; PULSE 77; O2SAT 98
[2022-04-14 23:05] VITALS: BP 162/84; PULSE 76; RESP 18; TEMP 36.9; O2SAT 98; BMI 21.1
--- NOTE | 2022-04-14 23:44 | ED.FALL ---
HPI - Fall General Chief Complaint: Fall Stated Complaint: GLF/ ETOH/ Exposure Time Seen by Provider: 04/14/22 22:49 Source: patient and EMS Mode of arrival: EMS History of Present Illness HPI Narrative: 61-year-old female smoker with history of breast cancer with recent mastectomy, [place] palsy since , asthma/COPD presents by EMS for evaluation of a ground level fall resulting in left hip pain. She had a few alcoholic beverages tonight and was getting out of her car and got her feet caught up underneath her and fell onto her left side. She denies any head neck or back pain. She denies chest pain or shortness of breath. She does have pain of her left elbow and left hip. There is some shortening and external rotation. She does not take any blood thinners. Related Data Home Medications Medication Instructions Recorded Confirmed albuterol sulfate [Ventolin HFA] inhalation 02/07/22 03/18/22 aspirin 81 mg tablet,delayed 81 mg PO DAILY 02/07/22 03/18/22 release (Adult Low Dose Aspirin) levothyroxine 50 mcg capsule 50 mcg PO DAILY 02/07/22 03/18/22 lisinopril 5 mg tablet 5 mg PO DAILY 02/07/22 03/18/22 sertraline 100 mg tablet 100 mg PO DAILY 02/07/22 03/18/22 tiotropium bromide [Spiriva inhalation 02/07/22 03/18/22 Respimat] Previous Rx's Medication Instructions Recorded acetaminophen 325 mg capsule 650 mg PO QID PRN pain #60 caps 02/21/22 (Tylenol) docusate sodium 100 mg capsule 100 mg PO BID #30 caps 02/21/22 (Colace) polyethylene glycol 3350 17 17 g PO DAILY #850 grams 02/28/22 gram/dose oral powder (Miralax) amoxicillin 500 mg-potassium 1 tab PO BID #6 tabs 03/10/22 clavulanate 125 mg tablet (Augmentin) hydrocodone 5 mg-acetaminophen 325 1 tab PO Q8H PRN pain #10 tabs 03/10/22 mg tablet lorazepam 0.5 mg tablet (Ativan) 0.5 mg PO Q6HR PRN Nausea And 03/25/22 Vomiting #30 tabs ondansetron 4 mg disintegrating 4 mg PO Q6H PRN Nausea And 12/06/22 tablet Vomiting #60 tabs prochlorperazine maleate 10 mg 10 mg PO Q6H PRN Nausea And 03/25/22 tablet (Compazine) Vomiting #60 tabs Allergies Allergy/AdvReac Type Severity Reaction Status Date / Time No Known Drug Allergies Allergy Unverified 03/18/22 16:21 Review of Systems Review of Systems Narrative: GENERAL: Denies chills, fatigue, malaise, fever, sweats. HEENT: Denies sinus pain, ear pain, sore throat, difficulty swallowing, dizziness. RESPIRATORY: See HPI CARDIOVASCULAR: Denies chest pain, palpitations, orthopnea, edema, GASTROINTESTINAL: Denies nausea, vomiting, abdominal pain, diarrhea, constipation, melena. : Denies dysuria, frequency, incontinence, hematuria, urinary retention. MUSCULOSKELETAL: See HPI SKIN: Denies rash, skin lesions, or other NEUROLOGIC: Denies weakness, headache, numbness, change in speech, confusion, seizures, incoordination. PSYCHIATRIC: No concerning psychosocial issues. 12 point review of systems is negative except for those stated above Patient History Medical History Anxiety Broken arm COPD (chronic obstructive pulmonary disease) Depression HTN (hypertension) Hypothyroidism Lumbar radiculopathy Pulmonary nodules (~2014) Raynaud's phenomenon Thalassemia minor Surgical History Hx of right breast biopsy (01/14/22) S/P hernia surgery Family History Mother Hypertension Sister Hypertension Breast cancer Social History marital status: unmarried,single household members: significant other lives independently: Yes occupational status: disabled Smoking Status: Current every day smoker alcohol intake: current substance use type: does not use Smoking Status: Current every day smoker alcohol intake frequency: 3 or more drinks per day Substance Use Type: does not use Exam Narrative Exam Narrative: GENERAL: 61 year old patient appears stated age. Well-developed patient, in mild distress. GCS 15 HEAD: Atraumatic. Normocephalic. EYES: Pupils equal round and reactive. Extraocular motions intact. No scleral icterus. No injection or drainage. ENT: Nose without bleeding, purulent drainage. Throat without erythema, tonsillar hypertrophy or exudate. Airway patent. NECK: Trachea midline. Non tender CARDIOVASCULAR: Regular rate and rhythm without murmurs, gallops, or rubs. RESPIRATORY: Clear to auscultation. Breath sounds equal bilaterally. No wheezes, rales, or rhonchi. GASTROINTESTINAL: Abdomen soft, non-tender, nondistended. EXTREMITIES: Left elbow with bruising, pain and limited range of motion secondary to pain, neurovascularly intact with large skin tear.. Left hip tender to palpation with shortening and external rotation, this is closed and neurovascularly intact BACK: Nontender without deformity or crepitance. No flank tenderness. NEURO: AOx3. SKIN: No rash or erythema of visible areas Initial Vital Signs Initial Vital Signs: Vital Signs Pulse Rate 75 04/14/22 23:00 Pulse Oximetry 98 04/14/22 23:00 Procedures Orthopedic Splinting/Casting Injury #1: Side: left Upper Extremity Injury Location: elbow Upper Extremity Immobilizer: posterior splint Post splinting neuro exam: intact Post splinting vascular exam: intact Placed by: Nursing Course Orders Ordered: ED Orders 04/14/22 22:49 XR elbow LT min 3V Stat XR hip w pel if done LT 2V Stat Complete Blood Count AUTO DIFF Stat Comprehensive Metabolic Panel Stat Ethanol (ETOH) Stat Prothrombin Time INR Stat 04/14/22 22:50 CT cervical spine wo con Stat CT head/brain wo con Stat Chest [XR chest 1V] Stat Lactate (Lactic Acid) Stat Lipase Stat Magnesium Stat Troponin & CK Cardiac Panel Stat Acetaminophen (Acetaminophen 325 Mg Tablet) 650 mg PO Q6H PRN PRN Reason: Fever/Mild Pain (1-3) Diclofenac Sodium (Diclofenac 1% Gel 100 Gm) 1 applic TOP QID PRN PRN Reason: Pain 1-10 Folic Acid (Folic Acid 1 Mg Tablet) 1 mg PO DAILY ALEKSANDRA Hydromorphone HCl (Hydromorphone 0.5 Mg Inj) 0.5 mg IV Q4H PRN PRN Reason: Pain, Moderate (4-6) Last Admin: 04/15/22 02:22 Dose: 0.5 mg Documented By: AM Dextrose/Sodium Chloride (Dextrose 5%-0.9% Ns) 1,000 mls @ 80 mls/hr IV CONT ALEKSANDRA Last Admin: 04/15/22 02:24 Dose: 80 mls/hr Documented By: AM Labetalol HCl (Labetalol 20 Mg/4 Ml Syringe) 5 mg IV Q4HR PRN; Protocol PRN Reason: elevated HR, B/P Levothyroxine Sodium (Levothyroxine 50 Mcg Tablet) 50 mcg PO 0600 [facility] Lidocaine (Lidocaine Patch 1 Each Adh..Patch) 1 each TOP DAILY PRN PRN Reason: Pain, 1-10 Lorazepam (Lorazepam 2 Mg/Ml Inj) 0 mg IV CIWAPRN PRN; Protocol PRN Reason: Alcohol Withdrawal Multivitamins (Multivitamin 1 Tablet) 1 tab PO DAILY [facility] Naloxone HCl (Naloxone 0.4 Mg/Ml Vial) 0.2 mg IV Q2MIN PRN PRN Reason: Opiate Reversal Nicotine (Nicotine 7 Mg Patch) 7 mg TOP DAILY [facility] Ondansetron HCl (Ondansetron 4 Mg/2 Ml Inj) 4 mg IV Q4HR PRN PRN Reason: Nausea And Vomiting Sennosides (Sennosides 8.6 Mg Tablet) 17.2 mg PO BEDTIME [facility] Thiamine HCl (Thiamine 100 Mg Tablet) 100 mg PO DAILY [facility] Stop: 04/19/22 09:01 Discontinued Medications Albuterol/Ipratropium (Albuterol/Ipratropium 3 Ml Ampul) 3 ml INH NOW ONE Stop: 04/14/22 23:44 Last Admin: 04/14/22 23:49 Dose: 3 ml Documented By: DONAVAN Hydromorphone HCl (Hydromorphone 0.5 Mg Inj) 0.5 mg IV NOW ONE Stop: 04/15/22 00:24 Last Admin: 04/15/22 00:33 Dose: 0.5 mg Documented By: SHANE Consultations Consultation #1: Discussed with on-call orthopedist, we have reviewed history, physical exam including imaging, he recommends posterior slab of left upper extremity, admission to hospitalist service Vital Signs Vital signs: Vital Signs - 8 hr 04/14/22 23:05 04/14/22 23:48 04/14/22 23:00 Temperature 98.4 F Pulse Rate 76 78 75 Respiratory Rate 18 20 Blood Pressure 162/84 H Pulse Oximetry 98 99 98 Oxygen Delivery Method Room Air Room Air 04/14/22 23:02 04/14/22 23:02 04/15/22 00:00 Temperature Pulse Rate 77 78 Respiratory Rate 14 Blood Pressure 162/84 H Pulse Oximetry 98 98 Oxygen Delivery Method 04/15/22 00:30 Temperature Pulse Rate 91 H Respiratory Rate Blood Pressure Pulse Oximetry 94 Oxygen Delivery Method - Fall Lab Data Result diagrams: 04/15/22 00:11 04/15/22 00:11 Labs: Lab Results 04/15/22 04/15/22 04/15/22 Range/Units 00:11 00:11 00:11 WBC 8.9 (4.5-11.0) X10^3/uL RBC 5.35 H (4.0-5.2) X10^6/uL Hgb 11.8 L (12.0-16.0) g/dL Hct 37.5 (36-46) % MCV 70.0 L (80-100) fL MCH 22.0 L (26-34) PG MCHC 31.4 (30-36) % RDW 16.0 H (11.6-14.8) % Plt Count 248 (150-400) X10^3/uL Neut % (Auto) 71.6 (50-75) % Lymph % (Auto) 23.5 L (25-40) % Whitfield % (Auto) 3.8 (3-14) % Eos % (Auto) 0.4 L (2-4) % Baso % (Auto) 0.7 (0-2) % Neut # (Auto) 6400 (9888-1169) /uL Lymph # (Auto) 2100 (9280-6857) /uL Whitfield # (Auto) 300 (0-900) /uL Eos # (Auto) 0 (0-450) /uL Baso # (Auto) 100 (0-100) /uL PT 11.6 (10.1-12.7) SECONDS INR 1.0 (0.9-1.3) Sodium 134 L (137-145) mmol/L Potassium 4.0 (3.4-5.1) mmol/L Chloride 101 (98-107) mmol/L Carbon Dioxide 18 L (22-32) mmol/L BUN 8 (7-17) mg/dL Creatinine 0.51 L (0.52-1.04) mg/dL Estimated GFR > 60 (>60) mL/min BUN/Creatinine Ratio 15.7 (6-22) Glucose 102 (80-110) mg/dL Lactate (0.7-2.1) mmol/L Calcium 9.4 (8.4-10.2) mg/dL Magnesium (1.6-2.3) mg/dL Total Bilirubin 0.6 (0.2-1.3) mg/dL AST 23 (14-36) IU/L ALT 10 (<35) IU/L Alkaline Phosphatase 80 (38-126) U/L Total Creatine Kinase (30-135) U/L CK-MB (CK-2) (<2.37) ng/mL CK-MB (CK-2) Rel Index (1.5-5.0) % Troponin I (0.01-0.034) ng/mL Total Protein 7.7 (6.3-8.2) g/dL Albumin 4.5 (3.5-5.0) g/dL Globulin 3.2 (1.7-4.1) g/dL Albumin/Globulin Ratio 1.4 (1.0-2.8) Lipase (23-300) U/L Ethyl Alcohol 159 H ( - 10) mg/dL SARS-CoV-2 (PCR) (Negative) 04/15/22 04/15/22 04/15/22 Range/Units 00:11 00:11 00:35 WBC (4.5-11.0) X10^3/uL RBC (4.0-5.2) X10^6/uL Hgb (12.0-16.0) g/dL Hct (36-46) % MCV (80-100) fL MCH (26-34) PG MCHC (30-36) % RDW (11.6-14.8) % Plt Count (150-400) X10^3/uL Neut % (Auto) (50-75) % Lymph % (Auto) (25-40) % Whitfield % (Auto) (3-14) % Eos % (Auto) (2-4) % Baso % (Auto) (0-2) % Neut # (Auto) (6751-8162) /uL Lymph # (Auto) (5404-6517) /uL Whitfield # (Auto) (0-900) /uL Eos # (Auto) (0-450) /uL Baso # (Auto) (0-100) /uL PT (10.1-12.7) SECONDS INR (0.9-1.3) Sodium (137-145) mmol/L Potassium (3.4-5.1) mmol/L Chloride (98-107) mmol/L Carbon Dioxide (22-32) mmol/L BUN (7-17) mg/dL Creatinine (0.52-1.04) mg/dL Estimated GFR (>60) mL/min BUN/Creatinine Ratio (6-22) Glucose (80-110) mg/dL Lactate 4.6 H* (0.7-2.1) mmol/L Calcium (8.4-10.2) mg/dL Magnesium 2.0 (1.6-2.3) mg/dL Total Bilirubin (0.2-1.3) mg/dL AST (14-36) IU/L ALT (<35) IU/L Alkaline Phosphatase (38-126) U/L Total Creatine Kinase 132 (30-135) U/L CK-MB (CK-2) 2.30 (<2.37) ng/mL CK-MB (CK-2) Rel Index 1.7 (1.5-5.0) % Troponin I < 0.012 (0.01-0.034) ng/mL Total Protein (6.3-8.2) g/dL Albumin (3.5-5.0) g/dL Globulin (1.7-4.1) g/dL Albumin/Globulin Ratio (1.0-2.8) Lipase 162 (23-300) U/L Ethyl Alcohol ( - 10) mg/dL SARS-CoV-2 (PCR) Negative (Negative) Point of Care Testing Glucose POC [address] scan - head: Radiologist's Impression: [address] [address] [address] Scan Report Signed Patient: Nedra Mccullough MR#: [id number] : 1960 Acct:[id number] Age/Sex: 61 / F Date of Service: 04/14/22 Loc: ED Accession Number: [id number] ?? Procedure: CT head/brain wo con Ordering Provider: Tj Hubbard D.O. PROCEDURE:? CT HEAD/BRAIN WO CON ? INDICATIONS:? fall with distracting injury, alcohol ? TECHNIQUE:? Noncontrast 4.5 mm thick angled axial sections acquired from the foramen magnum to the vertex, with coronal and sagittal reformats.? For radiation dose reduction, the following was used:? automated exposure control, adjustment of mA and/or kV according to patient size.? ? COMPARISON:? [facility], CT, CT CERVICAL SPINE WO CON, 04/14/2022, 23:11. ? FINDINGS:? Image quality:? Excellent.? ? CSF spaces:? Basal cisterns are patent.? No extra-axial fluid collections.? Ventricles are normal in size and shape.? ? Brain:? No midline shift.? No intracranial masses or hemorrhage.? Noble-white matter interface is normal.? Old right basal ganglia as well as left internal capsule foci of lacunar ischemia.. ? Skull and face:? Calvarium and visualized facial bones are intact, without suspicious lesions.? ? Sinuses:? Visualized sinuses and mastoids are clear.? ? IMPRESSION:? ? 1. No acute intracranial process. ? ? Dictated by: Humera Cox M.D. on 04/14/2022 at 23:52 ? ? Approved by: Humera Cox M.D. on 04/14/2022 at 23:53 ? CT - cervical spine: Radiologist's Impression: ? Chart Viewer Diagnostics Subcategory All Activity ??:?? All Time ??:?? All Subcategories Filter Laboratory Imaging Microbiology Pathology Blood Bank Tests Cardiovascular Other Specialty DATE TYPE STATUS REF RANGE/AUTHOR Hx 04/14/22 22:[address] Signed Humera Cox 04/14/22 22:50 Chest X-Ray Signed Humera Cox 04/14/22 22:[address] Signed Humera Cox 04/14/22 22:49 Hip X-Ray Signed Humera Cox 04/14/22 22:49 Elbow X-Ray Signed Humera Cox 02/14/22 08:39 Bone Scan Nuclear Medicine Signed Humera Cox 02/12/22 10:16 Chest/Abdomen/Pelvis CT Signed Karena Brannon 01/14/22 00:00 Mammogram Diagnostic Signed Fabricio Grady 01/14/22 00:00 Breast Biopsy Ultrasound Signed Fabricio Grady 01/14/22 00:00 Breast Axilla Core Biopsy US Signed Fabricio Grady 12/13/21 00:00 Mammogram Diagnostic Signed AntoniJohn 12/13/21 00:00 Breast Ultrasound Signed AntoniJohn Nedra Mccullough ED 61, F?1960 MRN#? [id number] REG ER,?Main ED??R08?? 165.1cm 57.606kg BMI: 21.1kg/m? Fall Acc#? [id number] Resus Status Not Ordered No Hx Avail Special Indicators No Data to Display Home Meds Not Confirmed Prescription Monitoring Program Total 15 MME/Day Unconfirmed MEDICATIONS (INSTRUCTIONS) LAST TAKEN Active ??acetaminophen [Tylenol] ??650 mgPOQIDPRNpain#60 caps ??albuterol sulfate [Ventolin HFA] ??inhalation ??amoxicillin-pot clavulanate [Augmentin] ??1 tabPOBID#6 tabs ??aspirin 81 mg tablet,delayed release ??81 mgPODAILY ??docusate sodium [Colace] ??100 mgPOBID#30 caps ??hydrocodone-acetaminophen ??1 [id number]#10 tabs 15 MME/Day ??levothyroxine 50 mcg capsule ??50 mcgPODAILY ??lisinopril 5 mg tablet ??5 mgPODAILY ??lorazepam [Ativan] ??0.5 [id number] And Vomiting#30 tabs ??ondansetron ??4 [id number] And Vomiting#60 tabs ??polyethylene glycol 3350 17 gram/dose oral powder ??17 gPODAILY#850 grams ??prochlorperazine maleate [Compazine] ??10 [id number] And Vomiting#60 tabs ??sertraline 100 mg tablet ??100 mgPODAILY ??tiotropium bromide [Spiriva Respimat] ??inhalation ?Not Included in Conflicts Allergies No Known Drug Allergies Problems ? ONSET Skin flap necrosis Breast cancer, right Vital Signs 04/14/22 23:48 Pulse 78? Resp 20? O2 Sat 99? Delivery Room Air? Diagnostics Reports Nedra Mccullough??61??F??1960 ? Allergy/Adv: No Known Drug Allergies Close Head CT (Signed) Humera Cox - 04/14/22 Chest X-Ray (Signed) Cox,Humera - 04/14/[address] (Signed) Humera Cox - 04/14/22 Hip X-Ray (Signed) Cox,Humera - 04/14/22 Elbow X-Ray (Signed) Cox,Humera - 04/14/22 Bone Scan Nuclear Medicine (Signed) Cox,Humera - 02/14/22 Chest/Abdomen/Pelvis CT (Signed) Karena Brannon - 02/12/22 Mammogram Diagnostic (Signed) GradyFabricio - 01/14/22 Breast Biopsy Ultrasound (Signed) Fabricio Grady - 01/14/22 Breast Axilla Core Biopsy US (Signed) Fabricio Grady 01/14/22 Mammogram Diagnostic (Signed) John Corrales - 12/13/21 Breast Ultrasound (Signed) John Corrales - 12/13/21 Launch?[place] [address] CT Scan Report Signed Patient: Nedra Mccullough MR#: [id number] : 1960 Acct:[id number] Age/Sex: 61 / F Date of Service: 04/14/22 Loc: ED Accession Number: [id number] ?? Procedure: CT cervical spine wo con Ordering Provider: Tj Hubbard D.O. PROCEDURE:? CT CERVICAL SPINE WO CON ? INDICATIONS:? fall, alcohol, distracting injury, found down ? TECHNIQUE:? Noncontrast 3 mm thick sections acquired from the skull base to the T4 level.? Sagittal and coronal reformats were then constructed.? For radiation dose reduction, the following was used:? automated exposure control, adjustment of mA and/or kV according to patient size.? ? COMPARISON:? [facility], CT, CT HEAD/BRAIN WO CON, 04/14/2022, 23:11. ? FINDINGS:? Image quality:? Excellent.? ? Bones:? No fractures or dislocations.? Visualized superior ribs are intact.? Multilevel degenerative changes. ? Soft tissues:? Prevertebral soft tissues are normal in thickness.? No paravertebral hematomas.? No apical pneumothoraces.? ? ? IMPRESSION:? No visualized fracture. ? Dictated by: Humera Cox M.D. on 04/14/2022 at 23:53 ? ? Approved by: Humera Cox M.D. on 04/14/2022 at 23:55 ? Chest x-ray: Radiologist's Impression: [address] [address] XRay Report Signed Patient: Nedra Mccullough MR#: [id number] : 1960 Acct:[id number] Age/Sex: 61 / F Date of Service: 04/14/22 Loc: ED Accession Number: [id number] ?? Procedure: XR elbow LT min 3V Ordering Provider: Tj Hubbard D.O. PROCEDURE:? XR ELBOW LT MIN 3V ? INDICATIONS:? Fracture ? TECHNIQUE:? 3 views of the elbow were acquired.? ? COMPARISON:? None. ? FINDINGS:? ? Bones:? There is a comminuted and displaced olecranon fracture. ? Soft tissues:? Effusion is difficult to evaluate secondary to positioning.? However, there is definite appearance of soft tissue edema at the elbow..? No suspicious soft tissue calcifications.? ? ? IMPRESSION:? Comminuted displaced olecranon fracture with soft tissue edema. ? ? Dictated by: Humera Cox M.D. on 04/14/2022 at 23:51 ? ? Approved by: Humera Cox M.D. on 04/14/2022 at 23:52 ? left hip Xray: Radiologist's Impression: [address] [address] XRay Report Signed Patient: Nedra Mccullough MR#: [id number] : 1960 Acct:[id number] Age/Sex: 61 / F Date of Service: 04/14/22 Loc: ED Accession Number: [id number] ?? Procedure: XR hip w pel if done LT 2V Ordering Provider: Tj Hubbard D.O. PROCEDURE:? XR HIP W PEL IF DONE LT 2V ? INDICATIONS:? fall with pain, shortening and external rotation ? TECHNIQUE:? AP pelvis with lateral view(s) of the left hip(s).? ? COMPARISON:? None. ? FINDINGS:? ? Bones:? There is a impacted and displaced intertrochanteric left femoral fracture.? There is lateral angulation of the proximal fragment overlapping the distal fragment. ? Soft tissues:? The visualized bowel gas pattern is normal.? No suspicious soft tissue calcifications.? ? ? IMPRESSION:? Impacted and displaced left intertrochanteric fracture. ? Dictated by: Humera Cox M.D. on 04/14/2022 at 23:49 ? ? Discharge Plan Departure Patient Disposition: Admitted As Inpatient Clinical Impression: Closed fracture of left hip, Closed fracture of left olecranon process Admit Date/Time: 04/15/22 00:57 Admit Provider: Alicia Rodriguez
[2022-04-14 23:48] VITALS: PULSE 78; RESP 20; O2SAT 99
[2022-04-14] MEDS: ALBUTEROL/IPRATROPIUM 3 ML AMPUL INH (23:49)
[2022-04-15] VITALS (33 sets, daily range): BP systolic 115–212; BP diastolic 63–106; PULSE 73–115; RESP 11–34; TEMP 36.2–36.9; O2SAT 91–98; BMI 21.1; BMI 21.3
--- NOTE | 2022-04-15 | DI.RAD.S_ITS ---
PROCEDURE: XR HIP W PEL IF DONE LT 2V INDICATIONS: OR TECHNIQUE: 2 view(s) of the hip acquired. COMPARISON: [facility], CR, XR HIP W PEL IF DONE LT 2V, 04/14/2022, 22:58. FINDINGS: Intraoperative images demonstrate femoral fixation on the left. There is good anatomic alignment a previous dislocated fracture. IMPRESSION: Intraoperative femoral fixation. Dictated by: Humera Cox M.D. on 04/15/2022 at 22:27 Approved by: Humera Cox M.D. on 04/15/2022 at 22:28
[2022-04-15 00:32] LABS: Prothrombin Time 11.6 SECONDS (10.1-12.7)
[2022-04-15] MEDS: HYDROMORPHONE 0.5 MG INJ IV ×3 (00:33→07:02)
[2022-04-15 00:36] LABS: Creatine Kinase 132 U/L (30-135); Lipase 162 U/L (23-300)
[2022-04-15 00:37] LABS: Add Manual Diff / Slide Review NO; Basophils Absolute Auto 100 /uL (0-100); Basophils Percent Auto 0.7 % (0-2); Eosinophils Absolute Auto 0 /uL (0-450); Eosinophils Percent Auto 0.4 % (2-4); Hematocrit 37.5 % (36-46); Hemoglobin 11.8 g/dL (12.0-16.0); Lymphocytes Absolute Auto 2100 /uL (1100-4500); Lymphocytes Percent Auto 23.5 % (25-40); Mean Corpuscular HGB Conc 31.4 % (30-36); Monocytes Absolute Auto 300 /uL (0-900); Monocytes Percent Auto 3.8 % (3-14); Neutrophils Absolute Auto 6400 /uL (1500-7000); Neutrophils Percent Auto 71.6 % (50-75); Platelet Count 248 X10^3/uL (150-400); Red Blood Cell Count 5.35 X10^6/uL (4.0-5.2); White Blood Cell Count 8.9 X10^3/uL (4.5-11.0)
[2022-04-15 00:48] LABS: Alanine Aminotransferase 10 IU/L (<35); Albumin 4.5 g/dL (3.5-5.0); Albumin Globulin Ratio 1.4 (1.0-2.8); Alkaline Phosphatase 80 U/L (38-126); Aspartate Aminotransferase 23 IU/L (14-36); BUN Creatinine Ratio 15.7 (6-22); Bilirubin Total 0.6 mg/dL (0.2-1.3); Blood Urea Nitrogen 8 mg/dL (7-17); Calcium 9.4 mg/dL (8.4-10.2); Carbon Dioxide 18 mmol/L (22-32); Chloride 101 mmol/L (98-107); Estimated Glomerular Filt Rate > 60 mL/min (>60); Ethanol (ETOH) 159 mg/dL; Globulin 3.2 g/dL (1.7-4.1); Glucose 102 mg/dL (80-110); HEMOLYSIS 16 (0-50); Sodium 134 mmol/L (137-145); Total Protein 7.7 g/dL (6.3-8.2)
[2022-04-15 00:50] LABS: Troponin I < 0.012 ng/mL (0.01-0.034)
[2022-04-15 00:51] LABS: CKMB % Relative Index 1.7 % (1.5-5.0)
[2022-04-15 00:53] LABS: Lactate (Lactic Acid) 4.6 mmol/L (0.7-2.1)
--- NOTE | 2022-04-15 00:55 | PC.NURSE ---
Notified by lab of Critical Lactate, 4.6. Dr Hubbard notified.
[2022-04-15 01:41] LABS: COVID-19 CEPHEID PCR (VTM/NP) Negative (Negative)
--- NOTE | 2022-04-15 01:54 | P.HP_ITS ---
History of Present Illness History of Present Illness Date Patient Seen: 04/15/22 Time Patient Seen: 01:54 Chief complaint: GLF/ ETOH/ Exposure Narrative: Nedra Mccullough is a 61-year-old female with a history of essential hypertension, tobacco abuse, Palacios's palsy from , COPD asthma, depression, and recent right breast cancer invasive lobular carcinoma high-grade malignancy with mastectomy with axillary dissection on 02/21/[address] Can, with secondary right breast skin flap necrosis, oncologist is Dr. Messina-?presents by EMS for evaluation of a ground level fall resulting in left hip pain.? She had a few alcoholic beverages tonight and was getting out of her car and got her feet caught up underneath her and fell onto her left side.? She denies any head neck or back pain.? She denies chest pain or shortness of breath.? She does have pain of her left elbow and left hip.? There is some shortening and external rotation.? She does not take any blood thinners. She denies headache, fever, body aches, chills, abdominal pain, nausea, vomiting, constipation, rash, hematemesis, hematuria, melena, denies history of osteopenia or osteoporosis. Patient reports that she drinks 2 beers 4 times a week, and smokes only 2-3 cigarettes per day, and has had diarrhea for the past 2 days. Because the patient developed a postop infection in the right breast skin flap that led to necrosis was unable to have placement of a port and begin chemotherapy at the [facility] of [facility] as originally planned. At the time of admit patient's temp 98.4?, BP 162/84, HR 91, R 14, O2 saturation 94% on room air. Patient received a dose of pain medication 15 minutes prior to admit exam, she is restless in the bed and is actually laying on her left hip and continues to frequently move and reposition causing pain. The patient appears to still be intoxicated, her pain is controlled when she does not move. Patient does report that her pain in her left elbow is has significantly improved secondary to having splinted. HGB 11.8, MCV 70, MCH 22, sodium 134, bicarb 18, creatinine 0.51, lactate 4.6, troponin within normal limits, Mag normal 2.0, ETOH 159. Patient's head CT, C-spine, and chest x-ray were negative for any acute processes or fracture. Left elbow x-ray demonstrated comminuted and displaced olecranon fracture. Left x-ray demonstrated impacted and displaced left inter trochanteric fracture with soft tissue edema. Patient admitted for ground level fall while intoxicated resulting in pathological left intertrochanteric and left olecranon fracture, in the setting of invasive lobular carcinoma high-grade malignancy of the right breast, status post mastectomy 02/21/2022. Patient History Medical History Anxiety Broken arm COPD (chronic obstructive pulmonary disease) Depression HTN (hypertension) Hypothyroidism Lumbar radiculopathy Pulmonary nodules (~2014) Raynaud's phenomenon Thalassemia minor Surgical History Hx of right breast biopsy (01/14/22) S/P hernia surgery Family & Social History Family History Mother Hypertension Sister Hypertension Breast cancer Social History: household members significant other lives independently Yes Safety & Behavioral: Feels Safe in Current Yes Environment Been Physically Hurt or No Threatened By a Person Tobacco & Substance use: Smoking Status Current every day smoker alcohol intake current alcohol intake frequency 3 or more drinks per day Substance Use Type does not use Meds Home Medications and Allergies Home Medications Medication Instructions Recorded Confirmed Type albuterol sulfate [Ventolin HFA] inhalation 02/07/22 03/18/22 History aspirin 81 mg tablet,delayed 81 mg PO DAILY 02/07/22 03/18/22 History release (Adult Low Dose Aspirin) levothyroxine 50 mcg capsule 50 mcg PO DAILY 02/07/22 03/18/22 History lisinopril 5 mg tablet 5 mg PO DAILY 02/07/22 03/18/22 History sertraline 100 mg tablet 100 mg PO DAILY 02/07/22 03/18/22 History tiotropium bromide [Spiriva inhalation 02/07/22 03/18/22 History Respimat] acetaminophen 325 mg capsule 650 mg PO QID PRN pain #60 caps 02/21/22 03/18/22 Rx (Tylenol) docusate sodium 100 mg capsule 100 mg PO BID #30 caps 02/21/22 03/18/22 Rx (Colace) polyethylene glycol 3350 17 17 g PO DAILY #850 grams 02/28/22 03/18/22 Rx gram/dose oral powder (Miralax) amoxicillin 500 mg-potassium 1 tab PO BID #6 tabs 03/10/22 03/18/22 Rx clavulanate 125 mg tablet (Augmentin) hydrocodone 5 mg-acetaminophen 325 1 tab PO Q8H PRN pain #10 tabs 03/10/22 03/18/22 Rx mg tablet lorazepam 0.5 mg tablet (Ativan) 0.5 mg PO Q6HR PRN Nausea And 03/25/22 Rx Vomiting #30 tabs ondansetron 4 mg disintegrating 4 mg PO Q6H PRN Nausea And 03/25/22 Rx tablet Vomiting #60 tabs prochlorperazine maleate 10 mg 10 mg PO Q6H PRN Nausea And 03/25/22 Rx tablet (Compazine) Vomiting #60 tabs Allergies Allergy/AdvReac Type Severity Reaction Status Date / Time No Known Drug Allergies Allergy Unverified 03/18/22 16:21 Review of Systems Review of Systems Narrative: All 12 point systems reviewed with the patient and are negative except otherwise documented. Exam Vital Signs (past 8 hours): - 04/14/22 23:05 04/14/22 23:48 04/14/22 23:00 Temperature 98.4 F Pulse Rate 76 78 75 Respiratory Rate 18 20 Blood Pressure 162/84 H Pulse Oximetry 98 99 98 Oxygen Delivery Method Room Air Room Air 04/14/22 23:02 04/14/22 23:02 04/15/22 00:00 Temperature Pulse Rate 77 78 Respiratory Rate 14 Blood Pressure 162/84 H Pulse Oximetry 98 98 Oxygen Delivery Method 04/15/22 00:30 Temperature Pulse Rate 91 H Respiratory Rate Blood Pressure Pulse Oximetry 94 Oxygen Delivery Method Oxygen Delivery Method Room Air Narrative Exam Narrative: GENERAL: 61 year old patient who appears older than stated age, intoxicated, restless and agitated but in no acute distress. HEAD: Atraumatic. Normocephalic. EYES: Pupils equal round and reactive. Extraocular motions intact. No scleral icterus. No injection or drainage, slightly bloodshot bilaterally ENT: Nose without bleeding, purulent drainage. Throat without erythema, tonsillar hypertrophy or exudate. Airway patent. NECK: Trachea midline. Non tender CARDIOVASCULAR: Regular rate and rhythm without murmurs, gallops, or rubs. RESPIRATORY: auscultation of all uribe, Breath sounds equal, poor air exchanged, shallow breathing, course with audible occasional wheezing and congestion. No rales, or rhonchi.? Noted occasional wheezing and left lower lobe. Chest: Status post right mastectomy, was secondary healed right skin flap necr osis. GASTROINTESTINAL: Abdomen soft, non-tender, nondistended hyperactive bowel sounds in all 4 quadrants, no CVA tenderness EXTREMITIES:? Left arm is splinted and wrapped with an Richard bandage. Left hip tender to palpation with shortening and external rotation, this is closed and neurovascularly intact, patient rolled onto lateral side of left hip, attempted patient education and encouragement of repositioning. NEURO: AOx3. Of all appears intoxicated, agitated, restless. moving all extremities, sensation to touch intact, no gross deficits noted of cranial nerves. SKIN: No rash or erythema of visible areas, patient is covered in a variety of bruises and superficial injuries various stages of healing likely indicative of recurrent falls, injury and recent hospitalizations. Psych: Patient has a poorly-kept appearance, chronically ill-appearing, depressed affect, labile mood, patient stated I'm going to cry but her mood and train of thought quickly changed and continued to converse easily without distress. Objective Labs Result Diagrams: 04/15/22 00:11 04/15/22 00:11 Labs: Laboratory Results - last 24 hr 04/15/22 04/15/22 04/15/22 00:11 00:11 00:11 WBC 8.9 RBC 5.35 H Hgb 11.8 L Hct 37.5 MCV 70.0 L MCH 22.0 L MCHC 31.4 RDW 16.0 H Plt Count 248 Neut % (Auto) 71.6 Lymph % (Auto) 23.5 L [place] % (Auto) 3.8 Eos % (Auto) 0.4 L Baso % (Auto) 0.7 Neut # (Auto) 6400 Lymph # (Auto) 2100 [place] # (Auto) 300 Eos # (Auto) 0 Baso # (Auto) 100 PT 11.6 INR 1.0 Sodium 134 L Potassium 4.0 Chloride 101 Carbon Dioxide 18 L BUN 8 Creatinine 0.51 L Estimated GFR > 60 BUN/Creatinine Ratio 15.7 Glucose 102 Lactate Calcium 9.4 Magnesium Total Bilirubin 0.6 AST 23 ALT 10 Alkaline Phosphatase 80 Total Creatine Kinase CK-MB (CK-2) CK-MB (CK-2) Rel Index Troponin I Total Protein 7.7 Albumin 4.5 Globulin 3.2 Albumin/Globulin Ratio 1.4 Lipase Ethyl Alcohol 159 H SARS-CoV-2 (PCR) 04/15/22 04/15/22 04/15/22 00:11 00:11 00:35 WBC RBC Hgb Hct MCV MCH MCHC RDW Plt Count Neut % (Auto) Lymph % (Auto) [place] % (Auto) Eos % (Auto) Baso % (Auto) Neut # (Auto) Lymph # (Auto) [place] # (Auto) Eos # (Auto) Baso # (Auto) PT INR Sodium Potassium Chloride Carbon Dioxide BUN Creatinine Estimated GFR BUN/Creatinine Ratio Glucose Lactate 4.6 H* Calcium Magnesium 2.0 Total Bilirubin AST ALT Alkaline Phosphatase Total Creatine Kinase 132 CK-MB (CK-2) 2.30 CK-MB (CK-2) Rel Index 1.7 Troponin I < 0.012 Total Protein Albumin Globulin Albumin/Globulin Ratio Lipase 162 Ethyl Alcohol SARS-CoV-2 (PCR) Negative Assessment & Plan Assessment & Plan narrative: Nedra Mccullough is a 61-year-old female with a history of essential hypertension, tobacco abuse, Palacios's palsy from , COPD asthma, depression, and recent right breast cancer invasive lobular carcinoma high-grade tumor with mastectomy with axillary dissection on 02/21/[address] Can, with secondary right breast skin flap necrosis, oncologist is Dr. Messina-?presents by EMS for evaluation of a ground level fall resulting in left hip pain. Patient admitted for ground level fall while intoxicated resulting in pathological left intertrochanteric and olecranon fracture, in the setting of invasive lobular carcinoma high-grade tumor of the right breast, status post mastectomy 02/21/2022. 1. Ground level fall while intoxicated resulting in pathological left intertrochanteric Fracture, Left olecranon fracture, acute, present on admission -head CT, C-spine, and chest x-ray were negative. -Left elbow x-ray demonstrated comminuted and displaced olecranon fracture.-left arm was splinted in the ED. -Left Hip x-ray demonstrated impacted and displaced left intertrochanteric fracture with soft tissue edema. -Dr. Rausch orthopedics to consult- Notified by ED -NPO, blood sugar checks q.6 hours while NPO, D5 half-normal saline at 80cc/hr -pain management: IV Dilaudid, ice packs, lidocaine patches, Voltaren -Olmedo placed -patient will require postoperative PT/OT consult, will likely require rehab placement following discharge 2. Alcohol use, acute on chronic, present on admission -patient reported to beers 4 times a week -ETOH 159 on admit -[facility] protocol -precautions seizures, aspiration -thiamine, folic acid, multivitamin 3. Breast cancer, right, invasive lobular carcinoma, high-grade tumor, acute, present on admission -status post mastectomy 02/21/2022 Dr. Can with axillary dissection, right skin flap necrotic tissue debridement 03/06/2022 -HGB 11.8, MCV 70, MCH 22 -managed by Dr. Avalos oncology/surgical intervention by Dr. Can -no blood pressures in right arm. 4. Lactic acidosis, acute, present on admission -initial lactic acid 4.6-will continue to trend. Possibly secondary to breast carcinoma, or from multiple fractures. 5. Hypertension, essential, acute on chronic, present on admission -162/84 on admit -continue lisinopril -IV labetalol to bridge while NPO. 6. Tobacco abuse, resulting in asthma/COPD, acute on chronic, present on admission -continue albuterol/Spiriva -nicotine patch ordered -patient education provided regarding tobacco cessation 7. Hypothyroidism, acquired, chronic, present on admission -continue levothyroxine 8. Depression, chronic, present on admission -continue sertraline 9. Malnutrition, mild, acute on chronic, likely secondary to malignancy, present on admission -BMI 21.1 -malnutrition likely secondary to breast cancer and alcohol use. -patient's malnutrition places them at high risk for medical and surgical com plications because of the severe malnutrition in relation to acute illness/chronic illness. This increases the difficulty in complexity of medical management and increases the chances poor outcomes such as mortality and morbidity as well as impaired wound healing, and immune suppression. -dietary consult ordered to evaluate and implement steps to improve caloric intake and nutrition. Code status:Full Surrogate decision maker: Iglesia Stack Spouse COVID PCR:Negative DVT/VTE prophylaxis: Medication held due to impending surgery, SCDs right only Disposition: Patient is admitted to acute care requiring hospitalization and surgical intervention for impacted and displaced left intertrochanteric fracture. I have utilized all available immediate resources to obtain, update, or review the patient's current medications. I have personally reviewed patient's chart notes from PCP, specialists, d iagnostic imaging, and laboratory, Time Spent With Patient Critical Care time: I spent a total of [] minutes of critical care time on this patient's care today; this time is exclusive of procedural time.
--- NOTE | 2022-04-15 01:59 | PC.NURSE ---
Report called to Kadeem, questions answered.
--- NOTE | 2022-04-15 02:01 | PC.NURSE ---
Before splint applied to left arm,her skin tear on left elbow was cleaned with saline and bacitracin and non adhering dressing applied.
[2022-04-15 02:18] LABS: Reflexed Lactate in 2 Hours Y
[2022-04-15] MEDS: DEXTROSE 5%-0.9% NS 1,000 ML 80 ML IV ×2 (02:24→15:41)
[2022-04-15 05:13] LABS: INR 1.1 (0.9-1.3); Prothrombin Time 12.3 SECONDS (10.1-12.7)
[2022-04-15 05:15] LABS: Add Manual Diff / Slide Review NO; Basophils Absolute Auto 100 /uL (0-100); Eosinophils Absolute Auto 0 /uL (0-450); Eosinophils Percent Auto 0.2 % (2-4); Hematocrit 32.8 % (36-46); Hemoglobin 10.3 g/dL (12.0-16.0); Lymphocytes Absolute Auto 2100 /uL (1100-4500); Lymphocytes Percent Auto 22.6 % (25-40); Mean Corpuscular HGB Conc 31.3 % (30-36); Mean Corpuscular Hemoglobin 22.1 PG (26-34); Mean Corpuscular Volume 70.7 fL (80-100); Monocytes Absolute Auto 400 /uL (0-900); Monocytes Percent Auto 4.7 % (3-14); Neutrophils Absolute Auto 6600 /uL (1500-7000); Neutrophils Percent Auto 71.5 % (50-75); Platelet Count 247 X10^3/uL (150-400); Red Blood Cell Count 4.64 X10^6/uL (4.0-5.2); Red Cell Distribution Width 15.7 % (11.6-14.8); White Blood Cell Count 9.2 X10^3/uL (4.5-11.0)
[2022-04-15 05:21] LABS: Alanine Aminotransferase 10 IU/L (<35); Albumin 3.9 g/dL (3.5-5.0); Albumin Globulin Ratio 1.3 (1.0-2.8); Alkaline Phosphatase 71 U/L (38-126); Aspartate Aminotransferase 24 IU/L (14-36); BUN Creatinine Ratio 12.7 (6-22); Bilirubin Total 0.6 mg/dL (0.2-1.3); Blood Urea Nitrogen 7 mg/dL (7-17); Calcium 8.5 mg/dL (8.4-10.2); Carbon Dioxide 20 mmol/L (22-32); Chloride 101 mmol/L (98-107); Estimated Glomerular Filt Rate > 60 mL/min (>60); Globulin 3.1 g/dL (1.7-4.1); Glucose 109 mg/dL (80-110); HEMOLYSIS < 15 (0-50); Magnesium 1.9 mg/dL (1.6-2.3); Potassium 3.7 mmol/L (3.4-5.1); Sodium 134 mmol/L (137-145)
[2022-04-15] MEDS: LIDOCAINE PATCH 1 EACH ADH..PATCH TOP (05:25)
[2022-04-15 06:32] LABS: Free T4, Direct Thyroxine 0.86 ng/dL (0.78-2.19)
[2022-04-15] MEDS: HYDROMORPHONE 1 MG INJ IV ×3 (08:48→15:35)
[2022-04-15] MEDS: LEVOTHYROXINE 50 MCG TABLET PO (08:54)
--- NOTE | 2022-04-15 09:50 | PM.PN.1 ---
Subjective Subjective Date Patient Seen: 04/15/22 Interval history: Nedra Mccullough is a 61-year-old female with a history of essential hypertension, tobacco abuse, Palacios's palsy from , COPD asthma, depression, and recent right breast cancer invasive lobular carcinoma high-grade malignancy with mastectomy with axillary dissection on 02/21/[address] Can, with secondary right breast skin flap necrosis, oncologist is Dr. Messina-?presents by EMS for evaluation of a ground level fall resulting in left hip pain.? She had a few alcoholic beverages on the night of presentation and was getting out of her car and got her feet caught up underneath her and fell onto her left side. Main complaint is left hip pain. Patient unable to get in a comfortable position. Orthopedic consult remains pending. He remains on [facility]WA protocol. Exam Vital Signs (past 8 hours): - 04/15/22 02:21 04/15/22 02:00 04/15/22 02:28 Temperature 97.3 F L Pulse Rate 82 86 87 Respiratory Rate 18 29 H 16 Blood Pressure 162/78 H 115/63 Pulse Oximetry 95 95 97 Oxygen Delivery Method Nasal Cannula Oxygen Flow Rate 1 1 1 04/15/22 02:48 04/15/22 03:56 04/15/22 06:00 Temperature 97.6 F 97.4 F L Pulse Rate 84 Respiratory Rate 16 Blood Pressure 131/77 Pulse Oximetry 98 Oxygen Delivery Method Nasal Cannula Oxygen Flow Rate 0 04/15/22 08:24 Temperature 97.5 F L Pulse Rate 76 Respiratory Rate 18 Blood Pressure 137/74 Pulse Oximetry 97 Oxygen Delivery Method Oxygen Flow Rate 0 Oxygen Delivery Method Nasal Cannula Oxygen Flow Rate 0 Narrative Exam Narrative: GENERAL: 61 year old patient who appears older than stated age, in no acute medical distress. HEAD: Atraumatic. Normocephalic. EYES: Pupils equal round and reactive. Extraocular motions intact. ENT: Examination of the nose and mouth normal. Airway patent. NECK: Trachea midline. Non tender or palpable lymph nodes. CARDIOVASCULAR: Regular rate and rhythm without murmurs, gallops, or rubs. RESPIRATORY: auscultation of all uribe,? Breath sounds equal, poor air exchanged, shallow breathing, course with audible occasional wheezing and congestion. Chest:? Status post right mastectomy, was secondary healed right skin flap necrosis. GASTROINTESTINAL: Abdomen soft, non-tender, nondistended hyperactive bowel sounds. EXTREMITIES:? Left arm is splinted and wrapped with an Richard bandage.? Left hip tender to palpation with shortening and external rotation, this is closed and neurovascularly intact. NEURO: AOx3.? SKIN: No rash or erythema of visible areas, patient is covered in a variety of bruises and superficial injuries various stages of healing likely indicative of recurrent falls, injury and recent hospitalizations. Psych:? Patient has a poorly-kept appearance, chronically ill-appearing, depressed affect, labile mood. Appropriate concern about surgery. Objective Labs Result Diagrams: 04/15/22 03:34 04/15/22 03:34 Labs: Laboratory Results - last 24 hr 04/15/22 04/15/22 04/15/22 00:11 00:11 00:11 WBC 8.9 RBC 5.35 H Hgb 11.8 L Hct 37.5 MCV 70.0 L MCH 22.0 L MCHC 31.4 RDW 16.0 H Plt Count 248 Neut % (Auto) 71.6 Lymph % (Auto) 23.5 L [place] % (Auto) 3.8 Eos % (Auto) 0.4 L Baso % (Auto) 0.7 Neut # (Auto) 6400 Lymph # (Auto) 2100 [place] # (Auto) 300 Eos # (Auto) 0 Baso # (Auto) 100 PT 11.6 INR 1.0 Sodium 134 L Potassium 4.0 Chloride 101 Carbon Dioxide 18 L BUN 8 Creatinine 0.51 L Estimated GFR > 60 BUN/Creatinine Ratio 15.7 Glucose 102 Lactate Calcium 9.4 Magnesium Total Bilirubin 0.6 AST 23 ALT 10 Alkaline Phosphatase 80 Total Creatine Kinase CK-MB (CK-2) CK-MB (CK-2) Rel Index Troponin I Total Protein 7.7 Albumin 4.5 Globulin 3.2 Albumin/Globulin Ratio 1.4 Lipase TSH Free T4 Ethyl Alcohol 159 H SARS-CoV-2 (PCR) 04/15/22 04/15/22 04/15/22 00:11 00:11 00:35 WBC RBC Hgb Hct MCV MCH MCHC RDW Plt Count Neut % (Auto) Lymph % (Auto) [place] % (Auto) Eos % (Auto) Baso % (Auto) Neut # (Auto) Lymph # (Auto) [place] # (Auto) Eos # (Auto) Baso # (Auto) PT INR Sodium Potassium Chloride Carbon Dioxide BUN Creatinine Estimated GFR BUN/Creatinine Ratio Glucose Lactate 4.6 H* Calcium Magnesium 2.0 Total Bilirubin AST ALT Alkaline Phosphatase Total Creatine Kinase 132 CK-MB (CK-2) 2.30 CK-MB (CK-2) Rel Index 1.7 Troponin I < 0.012 Total Protein Albumin Globulin Albumin/Globulin Ratio Lipase 162 TSH Free T4 Ethyl Alcohol SARS-CoV-2 (PCR) Negative 04/15/22 04/15/22 04/15/22 03:34 03:34 03:34 WBC 9.2 RBC 4.64 Hgb 10.3 L Hct 32.8 L MCV 70.7 L MCH 22.1 L MCHC 31.3 RDW 15.7 H Plt Count 247 Neut % (Auto) 71.5 Lymph % (Auto) 22.6 L [place] % (Auto) 4.7 Eos % (Auto) 0.2 L Baso % (Auto) 1.0 Neut # (Auto) 6600 Lymph # (Auto) 2100 [place] # (Auto) 400 Eos # (Auto) 0 Baso # (Auto) 100 PT 12.3 INR 1.1 Sodium 134 L Potassium 3.7 Chloride 101 Carbon Dioxide 20 L BUN 7 Creatinine 0.55 Estimated GFR > 60 BUN/Creatinine Ratio 12.7 Glucose 109 Lactate Calcium 8.5 Magnesium 1.9 Total Bilirubin 0.6 AST 24 ALT 10 Alkaline Phosphatase 71 Total Creatine Kinase CK-MB (CK-2) CK-MB (CK-2) Rel Index Troponin I Total Protein 7.0 Albumin 3.9 Globulin 3.1 Albumin/Globulin Ratio 1.3 Lipase TSH Free T4 Ethyl Alcohol SARS-CoV-2 (PCR) 04/15/22 04/15/22 03:34 03:34 WBC RBC Hgb Hct MCV MCH MCHC RDW Plt Count Neut % (Auto) Lymph % (Auto) [place] % (Auto) Eos % (Auto) Baso % (Auto) Neut # (Auto) Lymph # (Auto) [place] # (Auto) Eos # (Auto) Baso # (Auto) PT INR Sodium Potassium Chloride Carbon Dioxide BUN Creatinine Estimated GFR BUN/Creatinine Ratio Glucose Lactate 4.0 H Calcium Magnesium Total Bilirubin AST ALT Alkaline Phosphatase Total Creatine Kinase CK-MB (CK-2) CK-MB (CK-2) Rel Index Troponin I Total Protein Albumin Globulin Albumin/Globulin Ratio Lipase TSH 20.20 H Free T4 0.86 Ethyl Alcohol SARS-CoV-2 (PCR) [facility] Medical History Anxiety Broken arm COPD (chronic obstructive pulmonary disease) Depression HTN (hypertension) Hypothyroidism Lumbar radiculopathy Pulmonary nodules (~2014) Raynaud's phenomenon Thalassemia minor Surgical History Hx of right breast biopsy (01/14/22) S/P hernia surgery Family History Mother Hypertension Sister Hypertension Breast cancer Social History marital status: unmarried,single household members: significant other lives independently: Yes occupational status: disabled Smoking Status: Current every day smoker alcohol intake: current substance use type: does not use Assessment & Plan Assessment & Plan narrative: 1. Ground level fall while intoxicated resulting in left intertrochanteric Fracture, Left olecranon fracture, acute, present on admission -Dr. Rausch orthopedics to consult- Notified by ED, consult is pending -NPO, blood sugar checks q.6 hours while NPO, D5 half-normal saline at 80cc/hr -pain management:? IV Dilaudid, ice packs, lidocaine patches, Voltaren -Olmedo placed -patient will require postoperative PT/OT consult, will likely require rehab placement following discharge 2. Alcohol use, acute on chronic, present on admission -patient reported to beers 4 times a week -ETOH 159 on admit -[facility] protocol -precautions seizures, aspiration -thiamine, folic acid, multivitamin 3. Breast cancer, right, invasive lobular carcinoma, high-grade tumor, acute, present on admission -status post mastectomy 02/21/2022 Dr. Can with axillary dissection, right skin flap necrotic tissue debridement 03/06/2022 -HGB 11.8, MCV 70, MCH 22 -managed by Dr. Avalos oncology/surgical intervention by Dr. Can -no blood pressures in right arm. 4. Lactic acidosis, acute, present on admission -initial lactic acid 4.6-will continue to trend.? Possibly secondary to breast carcinoma, or from multiple fractures. -stat level ordered at this time. 5. Hypertension, essential, acute on chronic, present on admission -162/84 on admit and has stabilized to 137/74 today -continue lisinopril -IV labetalol to bridge while NPO. 6. Tobacco abuse, resulting in asthma/COPD, acute on chronic, present on admission -continue albuterol/Spiriva -nicotine patch ordered -patient education provided regarding tobacco cessation 7. Hypothyroidism, acquired, chronic, present on admission -continue levothyroxine 8. Depression, chronic, present on admission -continue sertraline 9. Malnutrition, mild, acute on chronic, likely secondary to malignancy, present on admission -BMI 21.1 -malnutrition likely secondary to breast cancer and alcohol use. -patient's malnutrition places them at high risk for medical and surgical complications because of the severe malnutrition in relation to acute illness/chronic illness.? This increases the difficulty in complexity of medical management and increases the chances poor outcomes such as mortality and morbidity as well as impaired wound healing, and immune suppression. -dietary consult ordered to evaluate and implement steps to improve caloric intake and nutrition. 10. Mild hyponatremia. Ordered stat electrolytes at this time. Code status:Full Surrogate decision maker: Iglesia Stack Spouse COVID PCR:Negative DVT/VTE prophylaxis:? Medication held due to impending surgery, SCDs right only Time Spent With Patient Critical Care time: I spent a total of [] minutes of critical care time on this patient's care today; this time is exclusive of procedural time.
[2022-04-15 10:49] LABS: Add Manual Diff / Slide Review NO; Basophils Absolute Auto 100 /uL (0-100); Basophils Percent Auto 0.7 % (0-2); Eosinophils Absolute Auto 100 /uL (0-450); Hematocrit 30.8 % (36-46); Lymphocytes Absolute Auto 2400 /uL (1100-4500); Lymphocytes Percent Auto 29.8 % (25-40); Mean Corpuscular HGB Conc 32.5 % (30-36); Mean Corpuscular Hemoglobin 22.5 PG (26-34); Mean Corpuscular Volume 69.3 fL (80-100); Monocytes Absolute Auto 600 /uL (0-900); Neutrophils Absolute Auto 4900 /uL (1500-7000); Neutrophils Percent Auto 60.5 % (50-75); Platelet Count 218 X10^3/uL (150-400); Red Blood Cell Count 4.44 X10^6/uL (4.0-5.2); Red Cell Distribution Width 15.5 % (11.6-14.8)
[2022-04-15 11:02] LABS: Carbon Dioxide 23 mmol/L (22-32); Chloride 104 mmol/L (98-107); HEMOLYSIS < 15 (0-50); Lactate (Lactic Acid) 1.4 mmol/L (0.7-2.1); Potassium 3.8 mmol/L (3.4-5.1); Sodium 135 mmol/L (137-145)
[2022-04-15 11:10] LABS: Hypochromasia 2+; Microcytosis 2+
--- NOTE | 2022-04-15 16:02 | CM.DANOTE ---
DCP Assessment: Patient is a 61 yr old female who was admitted for hip fracture and elbow fracture. Cm met with patient at the bedside and explained role patient stated understanding. Patients is currently pending hip surgery tonight. patient lives with her significant other Iglesia who is the person she wants to make decisions for her if she is unable to. Patient currently lives in a ground level apartment with no stairs. Patient states she is independent at her baseline with all ADLs and drives independently. CM asked patient about her drinking and she indorsed that she drinks 3-5 alcohol drinks a day and has for as long as she can remember. CM asked if she has ever gone through withdrawals she stated that she hasn't. CM asked patient if she feels she has a problem with drinking and she stated no. CM offered resources and information about AA or other resources but patient refused stating I don't have a drinking problem. Patient is not currently interested in any HH or SNF placement at [place]. she doesn't believe she will need them. CM team will check in on the patient post surgery to verify no HH is needed at [place]. I: [facility] and Medicaid DC Plan: A: home with Significant other Iglesia and her adult son at [place] when medically stable. Iglesia will also provide transportation home when ready. DC Plan B: home with HH if it is determined after surgery and after PT eval to be needed- CM team will follow up if this is recommended to get approval from patient at that time. Ana Haddad RNconflict resolution professional Discharge Planning/Care Management Advanced directive,confirm from FACILITY Start: 04/15/22 02:37 Freq: Q24H Status: Active Protocol: Document 04/15/22 03:56 AM (Rec: 04/15/22 04:05 AM [id number]) Co-signed By Rubina Peacock RN Advance Directive, confirm on record Time 04:00 Person contacted n/a Copy received No CM Discharge Assessment Start: 04/15/22 16:00 Freq: Status: Active Protocol: Document 04/15/22 16:00 HS (Rec: 04/15/22 16:01 HS [id number]) Discharge Planning Assessment Assigned Yield Improvement Engineer Ana Haddad RNconflict resolution professional DPOA/Assigned Designee Name Iglesia Stack Contact Information [phone] Advance Directives? No Advance Directives on File No History Provided By Patient,Medical Record Has Patient been admitted in last 30 No days? Prior Living Arrangements Apartment/Condo Household Members significant other Type of transporation used prior to Drives own vehicle admit Independent with ADL's Yes Is patient alert and oriented? Yes Caregiver for Another No Comment uses no DME at her baseline Barriers to Discharge No Discharge Plan Home Transportation Arrangement patients significant other Iglesia will provide transport home when stable Referrals Initiated None needed Whiteboard Updated in Patient Room with Yes name and ext. # of Yield Improvement Engineer Review Status In Process Next Review Type Continued Stay Review
--- NOTE | 2022-04-15 16:53 | PC.NURSE ---
Pt is A&O x3, afebrile per baseline slight slurred speech and wilburn's palsy. She is in severe pain with any movement to LUE, or LLE, but is able to reposition slightly. Olmedo catheter in place draining medium clear yellow urine. SBP is significantly elevated with pain level this afternoon at 1600, however Preop nurses arrive to transport patient to PREOP, BG at this time 102. SBP 185/100, she reports her pain level is improving from 20/10 to 5/10 which is tolerable at this time from recent dialudid IV 1 mg. She denies anxiety,agitation, headache, n/v,hallucinations, and is oriented, and CIWA score is zero. she is transported via bed to surgery at 1650 this evening.
--- NOTE | 2022-04-15 17:09 | P.CONS_ITS ---
History of Present Illness Consult details Date Patient Seen: 04/15/22 Time Patient Seen: 16:30 Chief complaint: GLF/ ETOH/ Exposure Reason for consult: Left hip pain Narrative: 61-year-old female who was admitted earlier this morning due to a fall to the left side that resulted in a left intertrochanteric fracture as well as a left olecranon fracture. Patient tripped and fell while getting out of her car landing on her left side. Was unable to bear weight and was brought into the emergency room where x-rays showed the above-stated issues. Patient denies hitting her head. Patient denies any loss of consciousness. Meds Home Medications and Allergies Home Medications Medication Instructions Recorded Confirmed Type albuterol sulfate [Ventolin HFA] inhalation 02/07/22 03/18/22 History aspirin 81 mg tablet,delayed 81 mg PO DAILY 02/07/22 03/18/22 History release (Adult Low Dose Aspirin) levothyroxine 50 mcg capsule 50 mcg PO DAILY 02/07/22 03/18/22 History lisinopril 5 mg tablet 5 mg PO DAILY 02/07/22 03/18/22 History sertraline 100 mg tablet 100 mg PO DAILY 02/07/22 03/18/22 History tiotropium bromide [Spiriva inhalation 02/07/22 03/18/22 History Respimat] acetaminophen 325 mg capsule 650 mg PO QID PRN pain #60 caps 02/21/22 03/18/22 Rx (Tylenol) docusate sodium 100 mg capsule 100 mg PO BID #30 caps 02/21/22 03/18/22 Rx (Colace) polyethylene glycol 3350 17 17 g PO DAILY #850 grams 02/28/22 03/18/22 Rx gram/dose oral powder (Miralax) amoxicillin 500 mg-potassium 1 tab PO BID #6 tabs 03/10/22 03/18/22 Rx clavulanate 125 mg tablet (Augmentin) hydrocodone 5 mg-acetaminophen 325 1 tab PO Q8H PRN pain #10 tabs 03/10/22 03/18/22 Rx mg tablet lorazepam 0.5 mg tablet (Ativan) 0.5 mg PO Q6HR PRN Nausea And 03/25/22 Rx Vomiting #30 tabs ondansetron 4 mg disintegrating 4 mg PO Q6H PRN Nausea And 03/25/22 Rx tablet Vomiting #60 tabs prochlorperazine maleate 10 mg 10 mg PO Q6H PRN Nausea And 03/25/22 Rx tablet (Compazine) Vomiting #60 tabs Allergies Allergy/AdvReac Type Severity Reaction Status Date / Time No Known Drug Allergies Allergy Unverified 03/18/22 16:21 Exam Vital Signs (past 8 hours): - 04/15/22 11:18 04/15/22 15:31 Temperature 97.1 F L 97.6 F Pulse Rate 73 85 Respiratory Rate 18 20 Blood Pressure 159/82 H 212/106 H Pulse Oximetry 96 95 Oxygen Flow Rate 0 0 Oxygen Delivery Method Nasal Cannula Oxygen Flow Rate 0 Narrative Exam Narrative: No signs of any open wounds or skin breakdown around the left hip. Patient's left leg is short and rotated. Patient still has positive dorsiflexion and plantar flexion of the toes and ankle. Palpable pedal pulses. Brisk cap refill. Compartments are soft. No sign of any knee or ankle swelling or instability. Patient's left arm is in a splint still has positive flexion and extension of the wrist and fingers. Ulnar, median, and radial nerve intact both motor and sensory function. Objective Labs Result Diagrams: 04/15/22 10:37 04/15/22 10:37 Labs: Laboratory Results - last 24 hr 04/15/22 04/15/22 04/15/22 00:11 00:11 00:11 WBC 8.9 RBC 5.35 H Hgb 11.8 L Hct 37.5 MCV 70.0 L MCH 22.0 L MCHC 31.4 RDW 16.0 H Plt Count 248 Neut % (Auto) 71.6 Lymph % (Auto) 23.5 L [place] % (Auto) 3.8 Eos % (Auto) 0.4 L Baso % (Auto) 0.7 Neut # (Auto) 6400 Lymph # (Auto) 2100 [place] # (Auto) 300 Eos # (Auto) 0 Baso # (Auto) 100 RBC Morphology Hypochromasia Microcytosis PT 11.6 INR 1.0 Sodium 134 L Potassium 4.0 Chloride 101 Carbon Dioxide 18 L BUN 8 Creatinine 0.51 L Estimated GFR > 60 BUN/Creatinine Ratio 15.7 Glucose 102 Lactate Calcium 9.4 Magnesium Total Bilirubin 0.6 AST 23 ALT 10 Alkaline Phosphatase 80 Total Creatine Kinase CK-MB (CK-2) CK-MB (CK-2) Rel Index Troponin I Total Protein 7.7 Albumin 4.5 Globulin 3.2 Albumin/Globulin Ratio 1.4 Lipase TSH Free T4 Ethyl Alcohol 159 H SARS-CoV-2 (PCR) 04/15/22 04/15/22 04/15/22 00:11 00:11 00:35 WBC RBC Hgb Hct MCV MCH MCHC RDW Plt Count Neut % (Auto) Lymph % (Auto) [place] % (Auto) Eos % (Auto) Baso % (Auto) Neut # (Auto) Lymph # (Auto) [place] # (Auto) Eos # (Auto) Baso # (Auto) RBC Morphology Hypochromasia Microcytosis PT INR Sodium Potassium Chloride Carbon Dioxide BUN Creatinine Estimated GFR BUN/Creatinine Ratio Glucose Lactate 4.6 H* Calcium Magnesium 2.0 Total Bilirubin AST ALT Alkaline Phosphatase Total Creatine Kinase 132 CK-MB (CK-2) 2.30 CK-MB (CK-2) Rel Index 1.7 Troponin I < 0.012 Total Protein Albumin Globulin Albumin/Globulin Ratio Lipase 162 TSH Free T4 Ethyl Alcohol SARS-CoV-2 (PCR) Negative 04/15/22 04/15/22 04/15/22 03:34 03:34 03:34 WBC 9.2 RBC 4.64 Hgb 10.3 L Hct 32.8 L MCV 70.7 L MCH 22.1 L MCHC 31.3 RDW 15.7 H Plt Count 247 Neut % (Auto) 71.5 Lymph % (Auto) 22.6 L [place] % (Auto) 4.7 Eos % (Auto) 0.2 L Baso % (Auto) 1.0 Neut # (Auto) 6600 Lymph # (Auto) 2100 [place] # (Auto) 400 Eos # (Auto) 0 Baso # (Auto) 100 RBC Morphology Hypochromasia Microcytosis PT 12.3 INR 1.1 Sodium 134 L Potassium 3.7 Chloride 101 Carbon Dioxide 20 L BUN 7 Creatinine 0.55 Estimated GFR > 60 BUN/Creatinine Ratio 12.7 Glucose 109 Lactate Calcium 8.5 Magnesium 1.9 Total Bilirubin 0.6 AST 24 ALT 10 Alkaline Phosphatase 71 Total Creatine Kinase CK-MB (CK-2) CK-MB (CK-2) Rel Index Troponin I Total Protein 7.0 Albumin 3.9 Globulin 3.1 Albumin/Globulin Ratio 1.3 Lipase TSH Free T4 Ethyl Alcohol SARS-CoV-2 (PCR) 04/15/22 04/15/22 04/15/22 03:34 03:34 10:37 WBC 8.0 RBC 4.44 Hgb 10.0 L Hct 30.8 L MCV 69.3 L MCH 22.5 L MCHC 32.5 RDW 15.5 H Plt Count 218 Neut % (Auto) 60.5 Lymph % (Auto) 29.8 [place] % (Auto) 8.0 Eos % (Auto) 1.0 L Baso % (Auto) 0.7 Neut # (Auto) 4900 Lymph # (Auto) 2400 [place] # (Auto) 600 Eos # (Auto) 100 Baso # (Auto) 100 RBC Morphology See below Hypochromasia 2+ H Microcytosis 2+ H PT INR Sodium Potassium Chloride Carbon Dioxide BUN Creatinine Estimated GFR BUN/Creatinine Ratio Glucose Lactate 4.0 H Calcium Magnesium Total Bilirubin AST ALT Alkaline Phosphatase Total Creatine Kinase CK-MB (CK-2) CK-MB (CK-2) Rel Index Troponin I Total Protein Albumin Globulin Albumin/Globulin Ratio Lipase TSH 20.20 H Free T4 0.86 Ethyl Alcohol SARS-CoV-2 (PCR) 04/15/22 04/15/22 10:37 10:37 WBC RBC Hgb Hct MCV MCH MCHC RDW Plt Count Neut % (Auto) Lymph % (Auto) [place] % (Auto) Eos % (Auto) Baso % (Auto) Neut # (Auto) Lymph # (Auto) [place] # (Auto) Eos # (Auto) Baso # (Auto) RBC Morphology Hypochromasia Microcytosis PT INR Sodium 135 L Potassium 3.8 Chloride 104 Carbon Dioxide 23 BUN Creatinine Estimated GFR BUN/Creatinine Ratio Glucose Lactate 1.4 Calcium Magnesium Total Bilirubin AST ALT Alkaline Phosphatase Total Creatine Kinase CK-MB (CK-2) CK-MB (CK-2) Rel Index Troponin I Total Protein Albumin Globulin Albumin/Globulin Ratio Lipase TSH Free T4 Ethyl Alcohol SARS-CoV-2 (PCR) [facility] Medical History Anxiety Broken arm COPD (chronic obstructive pulmonary disease) Depression HTN (hypertension) Hypothyroidism Lumbar radiculopathy Pulmonary nodules (~2014) Raynaud's phenomenon Thalassemia minor Surgical History Hx of right breast biopsy (01/14/22) S/P hernia surgery Family History Mother Hypertension Sister Hypertension Breast cancer Social History marital status: unmarried,single household members: significant other lives independently: Yes occupational status: disabled Tobacco & Substance Use Smoking Status: Current every day smoker alcohol intake: current substance use type: does not use Assessment & Plan Assessment & Plan narrative: Patient is status post fall resulting in a proximal femur fracture as well as a proximal ulnar fracture. Both of these will require surgical intervention. Initially we will plan on addressing the hip 1st. This will require an open reduction and internal fixation of the proximal femur fracture. Surgery was discussed with the patient as well as risks and limitations associated with the procedure. Also on over the rehabilitation recovery required afterwards. All of her questions and concerns were answered to her full satisfaction. The risk, benefits, alternatives, possible complications, operative course, and postop outcomes were discussed. Complications including but not limiting to bleeding, infection, fracture, nerve injury, continued pain postoperatively or instability postoperatively were discussed in detail. Medical complications including but not limited to deep venous thrombosis event, anesthesia complications with excessive bleeding, vascular events or cardiac events and other possible complications were discussed in detail. Need for postoperative rehabilitation and anticipated hospital stay and clinical course were discussed in detail. Patient acknowledges understanding and elects to proceed with surgery. Time Spent With Patient Critical Care time: I spent a total of [] minutes of critical care time on this patient's care today; this time is exclusive of procedural time.
--- NOTE | 2022-04-15 17:12 | PM.PREOP ---
Pre-operative Note Interval Note History & Physical reviewed/Exam performed by Physician: Yes Changes to H&P: No
[2022-04-15] MEDS: LACTATED RINGERS 1,000 ML 42 ML IV (17:32)
[2022-04-15] MEDS: CEFAZOLIN 2 GM/100 ML PREMIX 100 ML IV ×2 (18:20→20:46)
--- NOTE | 2022-04-15 18:35 | SUR.OPER ---
Supine on padded Covert table with left leg secured in padded positioning boots and suspended in positioning spar, operative leg in traction per surgeon. Non operative leg in padded well leg barcenas and secured with strap Head on one pillow. Arm on non-operative side secured on padded armboard <90 degrees abduction. Arm on operative side padded and resting across chest then secured with tape over sheet. Padded perineal post in place per surgeon.
[2022-04-15] MEDS: BUPIVACAINE 0.5% W/ EPI (PF) 30 ML VIAL INJ (18:52)
--- NOTE | 2022-04-15 19:41 | PM.OP.1 ---
Operative Date/Time/Diagnoses Date of procedure: 04/15/22 Time of procedure: 18:45 Pre-op diagnosis: Left proximal femur fracture Post-op diagnosis: same Procedure & Clinicians Procedure: Open reduction internal fixation left proximal femur fracture Same procedure as scheduled: Yes Indications: Left proximal femur fracture Surgeon: Juan aRusch Click Yes if Unassisted: Yes Anesthesia Type: General Operative Notes Findings: Displaced intertrochanteric left proximal femur fracture Closure Type: primary Applied: implant(s) (A Haddad and Nephew 11.5 by a 18 cm nail, 11 mm x 100 mm lab screw, 5 mm x 32.5 mm distal screw) Estimated Blood Loss (mL): 50 Procedure in detail: On date of service patient was met in the holding area where the is operative site was signed and witnessed by the OR staff. Surgery was once again discussed with the patient in remaining questions or concerns they had were answered fully. Patient was taken back to the operating theater. General anesthesia was administered and then patient was transferred to the fracture table. Great care was taken to ensure that all bony prominences were appropriately padded. Both legs were placed into traction boots but only the right leg was placed under distraction and internal rotation in order to reduce the fracture. C-arm was brought in to verify reduction the fracture. Once we were satisfied with overall reduction, the left leg was prepped and draped in the normal sterile fashion. Ten blade was used to incise through skin and fascial tissue. Deep knife was then used to incise through the ITB band. Guidewire was placed on the greater tuberosity and entered in to the canal. This was verified with C-arm. Entry Reamer was used to ream the entry hole. A 10 mm nail was placed. The depth of the nail was verified under C-arm. Once we are satisfied with the depth a guidewire was placed into the femoral head and its position was verified with AP and lateral views. This was measured and then drilled. Patient measured 100 mm. Next, 100 mm screw was placed into the femoral head and this was verified in the lateral and AP views with the C-arm. A lag screw was placed as well for additional compression. Once we are satisfied with the 2 screws into the proximal femur the distal screw was placed in the static hole. C-arm was used to verify positioning while this was drilled and a 30 mm screw was used to lock the nail distally. A proximal locking screw was placed locking the proximal screw into position. Final x-rays were obtained. The 3 separate wound was copiously irrigated and then closed in a layered fashion. Patient's leg was cleaned, dried, and dressed. Patient was taken off the fracture table transferred to a stretcher and taken to the PACU in stable condition. Complications: none Post-operative Condition: stable Disposition: Acute Care Plan for aftercare: Patient to be weight-bearing as tolerated to the left lower extremity. Will need to limit weight-bearing to the left upper extremity due to the olecranon fracture.
[2022-04-15] MEDS: HYDROCODONE/ACET 5/325 TABLET 1 TAB PO (20:11)
--- NOTE | 2022-04-15 20:36 | SUR.PHASEI ---
1930: Pt came out of OR with sanguinous discharge on dressing, MD keen at bedside to assess and reinforced dressing.
[2022-04-15] MEDS: ONDANSETRON 4 MG ODT PO (20:46)
[2022-04-15] MEDS: LACTATED RINGERS 1,000 ML 125 ML IV (20:46)
[2022-04-15] MEDS: SENNOSIDES 8.6 MG TABLET 17.2 MG PO (22:09)
[2022-04-15] MEDS: MAGNESIUM HYDROXIDE 30 ML UDC PO (22:09)
[2022-04-15] MEDS: DOCUSATE 100 MG CAPSULE PO (22:10)
[2022-04-15] MEDS: LABETALOL 20 MG/4 ML SYRINGE 5 MG IV (22:39)
[2022-04-15] MEDS: ALBUTEROL 2.5 MG/3 ML NEB (ADULT) INH (23:07)
[2022-04-16] VITALS (11 sets, daily range): BP systolic 111–162; BP diastolic 54–103; PULSE 83–105; RESP 16–20; TEMP 36.3–38.2; O2SAT 92–100
[2022-04-16] MEDS: OXYCODONE IR 10 MG TABLET PO ×5 (00:42→20:04)
[2022-04-16] MEDS: CEFAZOLIN 2 GM/100 ML PREMIX 100 ML IV (03:16)
[2022-04-16] MEDS: LACTATED RINGERS 1,000 ML 125 ML IV (05:16)
[2022-04-16] MEDS: LORazepam 0.5 MG TABLET PO (06:29)
[2022-04-16] MEDS: ALBUTEROL 2.5 MG/3 ML NEB (ADULT) INH ×4 (06:45→20:37)
[2022-04-16 07:17] LABS: Hematocrit 23.6 % (36-46); Hemoglobin 7.5 g/dL (12.0-16.0); Mean Corpuscular HGB Conc 31.9 % (30-36); Mean Corpuscular Hemoglobin 22.2 PG (26-34); Mean Corpuscular Volume 69.7 fL (80-100); Platelet Count 194 X10^3/uL (150-400); Red Blood Cell Count 3.39 X10^6/uL (4.0-5.2); Red Cell Distribution Width 15.6 % (11.6-14.8); White Blood Cell Count 8.5 X10^3/uL (4.5-11.0)
[2022-04-16 07:47] LABS: Alanine Aminotransferase 16 IU/L (<35); Albumin 3.5 g/dL (3.5-5.0); Albumin Globulin Ratio 1.3 (1.0-2.8); Alkaline Phosphatase 65 U/L (38-126); Aspartate Aminotransferase 27 IU/L (14-36); BUN Creatinine Ratio 8.9 (6-22); Bilirubin Total 0.6 mg/dL (0.2-1.3); Blood Urea Nitrogen 5 mg/dL (7-17); Calcium 8.8 mg/dL (8.4-10.2); Carbon Dioxide 21 mmol/L (22-32); Chloride 102 mmol/L (98-107); Estimated Glomerular Filt Rate > 60 mL/min (>60); Globulin 2.7 g/dL (1.7-4.1); Glucose 127 mg/dL (80-110); HEMOLYSIS < 15 (0-50); Magnesium 1.7 mg/dL (1.6-2.3); Sodium 133 mmol/L (137-145); Total Protein 6.2 g/dL (6.3-8.2)
--- NOTE | 2022-04-16 07:52 | P.PN_ITS ---
Subjective Subjective Date Patient Seen: 04/16/22 Time Patient Seen: 07:52 Interval history: Patient states she is having left hip and left elbow pain, she is also feeling very anxious and would like to be discharged today. She denies any new numbness or tingling down her legs, no recent nausea or vomiting. Exam Vital Signs (past 8 hours): - 04/16/22 00:42 04/16/22 05:05 04/16/22 06:45 Temperature 97.3 F L 97.7 F Pulse Rate 86 83 89 Respiratory Rate 18 16 20 Blood Pressure 130/80 162/103 H Pulse Oximetry 98 99 100 Oxygen Flow Rate 2 2.5 Oxygen Delivery Method Nasal Cannula Oxygen Flow Rate 2.5 Narrative Exam Narrative: Pleasant but somewhat frail 61-year-old female, resting comfortably in bed, no acute distress. Left upper extremity is in a long-arm splint. Bilateral upper extremity: Motor functions are grossly intact, sensation is grossly intact to light touch. Left hip dressing is clean, dry, intact. No surrounding erythema, induration, or staci pus. Bilateral lower extremity: Motor functions are grossly intact, sensation is grossly intact to light touch, calves are soft and nontender to palpation. Objective Labs Result Diagrams: 04/16/22 05:53 04/15/22 10:37 Labs: Laboratory Results - last 24 hr 04/15/22 04/15/22 04/15/22 10:37 10:37 10:37 WBC 8.0 RBC 4.44 Hgb 10.0 L Hct 30.8 L MCV 69.3 L MCH 22.5 L MCHC 32.5 RDW 15.5 H Plt Count 218 Neut % (Auto) 60.5 Lymph % (Auto) 29.8 [place] % (Auto) 8.0 Eos % (Auto) 1.0 L Baso % (Auto) 0.7 Neut # (Auto) 4900 Lymph # (Auto) 2400 [place] # (Auto) 600 Eos # (Auto) 100 Baso # (Auto) 100 RBC Morphology See below Hypochromasia 2+ H Microcytosis 2+ H Sodium 135 L Potassium 3.8 Chloride 104 Carbon Dioxide 23 Lactate 1.4 04/16/22 05:53 WBC 8.5 RBC 3.39 L Hgb 7.5 L Hct 23.6 L MCV 69.7 L MCH 22.2 L MCHC 31.9 RDW 15.6 H Plt Count 194 Neut % (Auto) Lymph % (Auto) [place] % (Auto) Eos % (Auto) Baso % (Auto) Neut # (Auto) Lymph # (Auto) [place] # (Auto) Eos # (Auto) Baso # (Auto) RBC Morphology Hypochromasia Microcytosis Sodium Potassium Chloride Carbon Dioxide Lactate PFSH Medical History Anxiety Broken arm COPD (chronic obstructive pulmonary disease) Depression HTN (hypertension) Hypothyroidism Lumbar radiculopathy Pulmonary nodules (~2014) Raynaud's phenomenon Thalassemia minor Surgical History Hx of right breast biopsy (01/14/22) S/P hernia surgery Family History Mother Hypertension Sister Hypertension Breast cancer Social History marital status: unmarried,single household members: significant other lives independently: Yes occupational status: disabled Smoking Status: Current every day smoker alcohol intake: current substance use type: does not use Assessment & Plan Post-op Postoperative Procedures: Procedures Operation Date: 04/15/22 16:30 Actual Procedure Side Surgeon p Intramedullary Nailing Femur Left Juan Rausch MD Postoperative day: 1 Postoperative status narrative: -stable status post left femur intramedullary nailing -left olecranon fracture Postoperative plan narrative: -mobilize with PT/OT. Weightbearing as tolerated on left lower extremity. Limit weight-bearing to left upper extremity due to her olecranon fracture. -continue multimodal pain management -Lovenox 40 mg daily x6 weeks for DVT prophylaxis -disposition: Based on primary team. Okay to DC from ortho standpoint -follow-up with ortho in 10-14 days for postoperative visit and follow-up on her left elbow fracture
[2022-04-16] MEDS: THIAMINE 100 MG TABLET PO (08:09)
[2022-04-16] MEDS: FOLIC ACID 1 MG TABLET PO (08:09)
[2022-04-16] MEDS: ENOXAPARIN 40 MG/0.4 ML SYRINGE SUBCUT (08:09)
[2022-04-16] MEDS: DOCUSATE 100 MG CAPSULE PO ×2 (08:09→20:05)
[2022-04-16] MEDS: LEVOTHYROXINE 50 MCG TABLET PO (08:09)
[2022-04-16] MEDS: MULTIVITAMIN 1 TABLET 1 TAB PO (08:09)
[2022-04-16] MEDS: HYDROMORPHONE 0.5 MG INJ 0.2 MG IV ×2 (09:30→15:19)
--- NOTE | 2022-04-16 09:30 | PT.IIE ---
Current Diagnoses Pathological fracture, hip, unspecified, initial encounter for fracture (04/15/22) Surgery Performed Operation Date: 04/15/22 16:30 Actual Procedures p Intramedullary Nailing Femur(Left) - Juan Rausch MD Surgical History (Last Reviewed 04/16/22 @ 07:53 by Elizabeth Lee PA-C) Hx of right breast biopsy (01/14/22) S/P hernia surgery Medical History (Last Reviewed 04/16/22 @ 07:53 by Elizabeth Lee PA-C) Anxiety Broken arm COPD (chronic obstructive pulmonary disease) Depression HTN (hypertension) Hypothyroidism Lumbar radiculopathy Pulmonary nodules (~2014) Raynaud's phenomenon Thalassemia minor Physical Therapy Inpatient Evaluation/Re-Eval M1 PT/OT-IP Prior Functional Status Start: 04/16/22 12:46 Freq: NEEDED Status: Active Protocol: Document 04/16/22 09:30 AB (Rec: 04/16/22 12:58 AB [email or web address]) Medical Review Prior Functional Status Medical History Reviewed Yes Communication able to make needs known; with confusion Mobility and Gait pt stated that she is independent with all mobilities and ambulation without AD Social History Household Members none Living Arrangements Apartment/Condo Number of Floors (Floors) One Floor Number of Stairs To Enter/Railing? lives in [place] no steps to enter Home Environment Standard Height Toilet,Tub/ Shower Home Equipment Grab Bars Near Toilet,Grab Bars In Shower Additional Social History Comment pt stated that her friend NEELAM will stay with her and assist her M2 PT-IP Current Condition Start: 04/16/22 12:46 Freq: NEEDED Status: Active Protocol: Document 04/16/22 09:30 AB (Rec: 04/16/22 12:58 AB [id number]) Physical Therapy Current Condition Current Condition Evaluation Date 04/16/22 Treatment Diagnosis GLF; L hip fx s/p ORIF; difficulty in walking Onset Date 04/15/22 M3 PT-IP Subjective Start: 04/16/22 12:46 Freq: NEEDED Status: Active Protocol: Document 04/16/22 09:30 AB (Rec: 04/16/22 12:58 AB [email or web address]) Subjective Physical Therapy Visit Type Type Initial Evaluation Visit Start Time 09:30 Visit Stop Time 10:05 Total Visit Minutes 35 Number of RETAIL VISUAL MERCHANDISER Visits 0 Therapy Pain Assessment Pain When Pain Assessed During Mobility Pain Present Pain Present Pain Reported Location left hip Scale Used pain scale not stated Pain Behaviors Facial Grimacing,Guarding, Holding Area,Wincing Pain Management Techniques Apply Cold,Distraction, Modification of Treatment,Re- positioning,Timing of Activity with Medications M4 PT-IP Mobility and Gait Start: 04/16/22 12:46 Freq: NEEDED Status: Active Protocol: Document 04/16/22 09:30 AB (Rec: 04/16/22 12:58 AB [email or web address]) PT-Bed Mobility Assessment Supine to Sit Supine to Sit Maximum Assistance,2 Person Assistance,Head of Bed Elevated,Bedrails PT-Transfer Assessment Sit to and From Stand Sit to and from Stand Maximum Assistance,2 Person Assistance,Use of Upper Extremities Equipment Transfer Assistive Device Front Wheeled Walker Orthotic/Prosthetic Devices or Brace: No Transfers Transfer Destination Chair Transfer Technique Stand Step Pivot Transfer Ability Level of Assist Maximum Assistance,2 Person Assistance,Use of Upper Extremities Comments Mobility Comments educated pt on WBAT on LLE and NWB on L elbow. pt completed supine to sit max A x 2 and max cues. required multiple attempts to complete task with increase posterior trunk leaning and pushing backwards by pt despite cues provided. c/o increase hip pain. HOB elevated and pt used bed rail to assist. required mod A for sitting on EOB. completed sit to stand max Ax 2 and max cues and pivot transfer to chair using FWW max A x 2 and max cues. reminded regarding NWB on LUE. Gait Assessment Comments Gait Comments unable at this time PT-Balance Assessment Sitting Balance and Reactions Static Sitting Balance Ability Fair Dynamic Sitting Balance Ability Fair Standing Balance and Reactions Static Standing Balance Ability Poor Dynamic Standing Balance Ability Poor Device Used FWW M5 PT-IP Objective Assessments Start: 04/16/22 12:46 Freq: NEEDED Status: Active Protocol: Document 04/16/22 09:30 AB (Rec: 04/16/22 12:58 AB [email or web address]) Orientation Orientation/Cognition Level of Alertness Confusional State Orientation Name,Situation Language Function Ability No Deficits Noted Safety Awareness Decreased Safety Awareness Memory Description Short Term Impaired Gross Range of Motion Lower Extremity ROM Assessment Within Functional Limits Strength Lower Extremity Strength Assessment Left Impaired Hip 2+/5 Knee 3-/5 Sensation Assessment Sensation Gross Sensation WNL Muscle Tone Muscle Tone WNL Yes M6 PT-IP Treatment Start: 04/16/22 12:46 Freq: NEEDED Status: Active Protocol: Document 04/16/22 09:30 AB (Rec: 04/16/22 12:58 AB [email or web address]) Physical Therapy Treatment Education Education Provided Precautions,Weight Bearing Status,Post-Op Packet,Safety M7 PT-IP Assessment and Plan Start: 04/16/22 12:46 Freq: NEEDED Status: Active Protocol: Document 04/16/22 09:30 AB (Rec: 04/16/22 12:58 AB [email or web address]) PT Summary Assessment and Plan Potential Rehabilitation Potential Fair Status of Condition at Evaluation Evolving Summary Impairments Pain,ROM,Strength,Balance, Coordination,Sensation,Tone, Cognition,Bed Mobility, Transfers,Gait,Activity Tolerance Assessment Summary pt requiring max A x 2 with bed mobility and transfers using FWW and unable to ambulate at this time. Pt will require SNF rehab to improve mobility. Goals Bed Mobility Goal Minimal Assistance Transfer Goal Minimal Assistance,Front Wheeled Walker Gait Goal Minimal Assistance,Front Wheel Walker Gait Distance 50 Other Goals improve bed mobility, transfers and ambulation using FWW SBA 150 ft Days to Meet Goals 10 Frequency of Treatment Frequency Of Treatment Twice a Day Treatment Plan Physical Therapy Treatment Plan Bed Mobility Training,Transfer Training,Gait Training, Therapeutic Exercise,Balance Retraining,Post Op Education, Discharge Planning,Hot or Cold Pack,Neuromuscular Re-ed, Coordination Retraining,Manual Therapy Weight Bearing Status Allowed Weight Bearing Amount (enter % PER ORTHO MD note: Patient to or #) (%) be weight-bearing as tolerated to the left lower extremity. Will need to limit weight-bearing to the left upper extremity due to the olecranon fracture Recommendations To Nursing Amount of Assist Needed 2 Person Assist Discharge Recommendations PT Discharge Recommendations SNF Rehab Transportation Needs at Discharge Wheelchair/Cabulance
--- NOTE | 2022-04-16 13:11 | DIET.CONS ---
Dietary Consultation Note Admission Date: 04/15/2022 00:57 Assessment: 61y F admitted after GLF resulting in hip fracture and olecranon process fracture referred to nutrition for malnutrition screening (MNA 11). Pt was diagnosed with breast cancer in 12/09 and underwent mastectomy which led to post-op infection delaying pts chemotherapy treatment. Pt currently using etoh and cigarettes regularly. Pt tells RD she is at her UBW with BMI 21.1. Food Recall: B: coffee and doughnut L: canned soup D: meat and starch Ht: 165.1 cm Wt: 58.105 kg BMI: 21.1 UBW: 58-60kg Last BM: 04/15/22 (04/15/22 17:12) MNA: 11 David Score: 15 Diet: 04/15/22 Dinner General (Regular) Diet Diet Modifications: Nutrition Percent Meal Consumed 50% 04/16/22 09:00 Labs: RBC 3.39 X10^6/uL (4.0-5.2) L 04/16/22 05:53 Hgb 7.5 g/dL (12.0-16.0) L 04/16/22 05:53 Hct 23.6 % (36-46) L 04/16/22 05:53 Creatinine 0.56 mg/dL (0.52-1.04) 04/16/22 05:53 Lactate 1.4 mmol/L (0.7-2.1) 04/15/22 10:37 Nutrition Diagnosis: Chronic Moderate Malnutrition r/t suboptimal diet aeb pt c delayed treatment breast cancer, regular use etoh and cigarettes, recent post-op infection and GLF resulting in two fractures, pt diet recall showing inadequate protein and micronutrient intake. Interventions: 1. While hospitalized, providing pt high protein, high calorie diet with fruit cup at meals. 2. Recc MVI. 3. Recc reducing/eliminating etoh and smoking 4. Encouraged pt to consume protein with every meal the size of the palm of her hand and take a daily MVI. EER: 1750kcals (30kcal/kg), 75-80g PRO (1.3-1.5g/kg per PCM and post-surgical) Monitoring/Evaluations: POs Electronically Signed by: Jaquelin Marion 04/16/22 13:11 Clinical Dietitian [place] [phone]
[2022-04-16] MEDS: IRON SUCROSE 200 MG in SODIUM CHLORIDE 0.9% 100 ML 220 MG IV (14:04)
--- NOTE | 2022-04-16 14:38 | PT.IPTN ---
Current Diagnoses Pathological fracture, hip, unspecified, initial encounter for fracture (04/15/22) Surgery Performed Operation Date: 04/15/22 16:30 Actual Procedures p Intramedullary Nailing Femur(Left) - Juan Rausch MD Physical Therapy Treatment Note M2 PT-IP Current Condition Start: 04/16/22 12:46 Freq: NEEDED Status: Active Protocol: Document 04/16/22 09:30 AB (Rec: 04/16/22 12:58 AB [email or web address]) Physical Therapy Current Condition Current Condition Evaluation Date 04/16/22 Treatment Diagnosis GLF; L hip fx s/p ORIF; difficulty in walking Onset Date 04/15/22 M3 PT-IP Subjective Start: 04/16/22 12:46 Freq: NEEDED Status: Active Protocol: Document 04/16/22 14:38 AB (Rec: 04/16/22 15:39 AB [email or web address]) Subjective Physical Therapy Visit Type Type Treatment Note Visit Start Time 14:38 Visit Stop Time 14:55 Total Visit Minutes 17 Number of NETWORK DESIGNER Visits 0 Physical Therapy Visit Comments Patient Comments requested to go back to bed Therapy Pain Assessment Pain When Pain Assessed At Rest Pain Present Pain Present Pain Reported Location left hip Scale Used pain scale not stated M4 PT-IP Mobility and Gait Start: 04/16/22 12:46 Freq: NEEDED Status: Active Protocol: Document 04/16/22 14:38 AB (Rec: 04/16/22 15:39 AB [email or web address]) PT-Bed Mobility Assessment Sit to Supine Sit to Supine Total Assistance,2 Person Assistance PT-Transfer Assessment Sit to and From Stand Sit to and from Stand Maximum Assistance,2 Person Assistance,Use of Upper Extremities Equipment Transfer Assistive Device Gait Belt,Front Wheeled Walker Orthotic/Prosthetic Devices or Brace: Yes Transfers Transfer Destination Bed Transfer Technique ambulated Transfer Ability Level of Assist Moderate Assistance,2 Person Assistance,Use of Upper Extremities Comments Mobility Comments educated on NWB on LUE. pt completed sit to stand from the chair x 2 attempts requiring max A x 2 and max cues. able to stand using FWW mod A x 2 . pt able to use LUE to hold on to walker but not put weight on LUE. pt ambulated towards the bed ~ 12 ft using FWW mod A x 2 and max cues. completed sit to supine total Ax 2 and max cues. positioned in bed. call light and table placed within reach. pt's friend Iglesia in room with pt. educated pt regarding current level of assistance and SNF recommendation. pt initially refusing but agreed after pt's friend Iglesia stated that it is a good idea for pt. Gait Assessment Gait Gait Assistance Required: Moderate Assistance,2 Person Assist Distance (Feet) 12 Able to Maintain Weight Bearing Status Yes During Gait Assistive Devices Assistive Device Gait Belt,Front Wheeled Walker Orthotic/Prosthetic Devices or Brace: No Gait Deviations General Gait Pattern Decreased Stride Length, Decreased Feet Clearance,Step- to Gait Factors Limiting Gait Function Factors Limiting Gait Function Decreased Activity Tolerance, Decreased Strength,Difficulty Following Directions,Limited Range of Motion,Pain,Poor Balance,Poor Safety Awareness M5 PT-IP Objective Assessments Start: 04/16/22 12:46 Freq: NEEDED Status: Active Protocol: Document 04/16/22 09:30 AB (Rec: 04/16/22 12:58 AB [email or web address]) Orientation Orientation/Cognition Level of Alertness Confusional State Orientation Name,Situation Language Function Ability No Deficits Noted Safety Awareness Decreased Safety Awareness Memory Description Short Term Impaired Gross Range of Motion Lower Extremity ROM Assessment Within Functional Limits Strength Lower Extremity Strength Assessment Left Impaired Hip 2+/5 Knee 3-/5 Sensation Assessment Sensation Gross Sensation WNL Muscle Tone Muscle Tone WNL Yes M6 PT-IP Treatment Start: 04/16/22 12:46 Freq: NEEDED Status: Active Protocol: Document 04/16/22 14:38 AB (Rec: 04/16/22 15:39 AB [email or web address]) Physical Therapy Treatment Education Education Provided Weight Bearing Status,Safety M7 PT-IP Assessment and Plan Start: 04/16/22 12:46 Freq: NEEDED Status: Active Protocol: Document 04/16/22 14:38 AB (Rec: 04/16/22 15:39 AB [email or web address]) PT Summary Assessment and Plan Potential Rehabilitation Potential Fair Summary Impairments Pain,ROM,Strength,Balance, Coordination,Sensation,Tone, Cognition,Bed Mobility, Transfers,Gait,Activity Tolerance Progress Towards Goals Slow Progress due to Pain,Slow Progress due to Activity Tolerance Assessment Summary pt requiring total A x 2 for bed mobility, max A x 2 for sit to stand and mod A x 2 for ambulation using fWW. pt will require SNF rehab to improve strength and mobility. Goals Bed Mobility Goal Minimal Assistance Transfer Goal Minimal Assistance,Front Wheeled Walker Gait Goal Minimal Assistance,Front Wheel Walker Gait Distance 50 Other Goals improve bed mobility, transfers and ambulation using FWW SBA 150 ft Days to Meet Goals 10 Frequency of Treatment Frequency Of Treatment Twice a Day Treatment Plan Physical Therapy Treatment Plan Bed Mobility Training,Transfer Training,Gait Training, Therapeutic Exercise,Balance Retraining,Post Op Education, Discharge Planning,Hot or Cold Pack,Neuromuscular Re-ed, Coordination Retraining,Manual Therapy Weight Bearing Status Allowed Weight Bearing Amount (enter % PER ORTHO MD note: Patient to or #) (%) be weight-bearing as tolerated to the left lower extremity. Will need to limit weight-bearing to the left upper extremity due to the olecranon fracture Recommendations To Nursing Amount of Assist Needed 2 Person Assist Discharge Recommendations PT Discharge Recommendations SNF Rehab Transportation Needs at Discharge Wheelchair/Cabulance
--- NOTE | 2022-04-16 15:03 | OT.IP.EVAL ---
Current Diagnoses Pathological fracture, hip, unspecified, initial encounter for fracture (04/15/22) Surgery Performed Operation Date: 04/15/22 16:30 Actual Procedures p Intramedullary Nailing Femur(Left) - Juan Rausch MD Past Medical History (Last Reviewed 04/16/22 @ 07:53 by Elizabeth Lee PA-C) Anxiety Broken arm COPD (chronic obstructive pulmonary disease) Depression HTN (hypertension) Hypothyroidism Lumbar radiculopathy Pulmonary nodules (~2014) Raynaud's phenomenon Thalassemia minor Surgical History (Last Reviewed 04/16/22 @ 07:53 by Elizabeth Lee PA-C) Hx of right breast biopsy (01/14/22) S/P hernia surgery Occupational Therapy Inpatient Evaluation/Re-Eval M1 PT/OT-IP Prior Functional Status Start: 04/16/22 12:46 Freq: NEEDED Status: Active Protocol: Document 04/16/22 14:05 [facility] (Rec: 04/16/22 15:57 [facility] [id number]) Medical Review Prior Functional Status Medical History Reviewed Yes Communication able to make needs known; with confusion Mobility and Gait pt stated that she is independent with all mobilities and ambulation without AD Activities of Daily Living and IADL's Pt states was completely independent but only that her significant other , Neelam helps to pay the bills. Social History Household Members none Living Arrangements Apartment/Condo Number of Floors (Floors) One Floor Number of Stairs To Enter/Railing? lives in [place] no steps to enter Home Environment Standard Height Toilet,Tub/ Shower Home Equipment Grab Bars Near Toilet,Grab Bars In Shower Additional Social History Comment pt stated that her friend NEELAM will stay with her and assist her M2 OT-IP Current Condition Start: 04/16/22 15:26 Freq: Status: Active Protocol: Document 04/16/22 14:05 [facility] (Rec: 04/16/22 15:57 [facility] [id number]) Occupational Therapy Current Condition Current Condition Evaluation Date 04/16/22 Treatment Diagnosis Left proximal femur fx, S/p ORIF , LUE olecranon fx Diagnosis Onset Date 04/15/22 Weight Bearing Status Allowed Weight Bearing Amount (enter % WBAT for LLE or #) (%) Limited WB to LUE however mainly just able to allow to rest her hand on the FWW but otherwise NWB at her elbow. M3 OT- IP Subjective and Pain Start: 04/16/22 15:26 Freq: Status: Active Protocol: Document 04/16/22 14:05 [facility] (Rec: 04/16/22 15:57 [facility] [id number]) OT- Subjective Occupational Therapy Visit Type Type Initial Evaluation Visit Start Time 14:05 Visit Stop Time 15:03 Total Visit Minutes 30 Occupational Therapy Visit Comments Patient Comments Pt wanting to get back to bed and her significant other , Neelam present. Patient/Caregiver Goals Pt wanting to go home but realizes best to go to skilled rehab first as now needing 2 person assist for mobility needs. OT Pain Assessment Pain When Pain Assessed During Mobility Pain Present Pain Present Pain Reported Location left hip Intensity 8 M4 OT- IP ADL's Start: 04/16/22 15:26 Freq: Status: Active Protocol: Document 04/16/22 14:05 [facility] (Rec: 04/16/22 15:57 [facility] [id number]) OT ADL-Grooming Comments OT Grooming Comments Pt not wanting to perform at this time. OT ADL-Oral Care Comments Oral Care Comments Pt not wanting to perform at this time. OT ADL-Dressing General Eval Lower Body Dressing Ability Total Assistance Areas Needing Assistance Socks OT ADL-Toileting General Evaluation Toileting Ability Total Assistance Comments OT Toileting Comments [place] in place. OT ADL-Bathing Comments OT Bathing Comments Sponge bath more appropriat at this time. M5 OT- IP IADL's Start: 04/16/22 15:26 Freq: Status: Active Protocol: Document 04/16/22 14:05 [facility] (Rec: 04/16/22 15:57 [facility] [id number]) OT-Instrumental Activities of Daily Living Home Safety Awareness Awareness of Need for Assistance at Home Good Awareness Medication Management Medication Management Comments Pt states does her own. Money Management Money Management Caregiver Provides Assistance Meal Preparation Meal Preparation Comments Pt's significant other able to assist. Industrial Automation Engineer Industrial Automation Engineer Comments Pt's significant other able to assist. M6 OT- IP Functional Cognition Start: 04/16/22 15:26 Freq: Status: Active Protocol: Document 04/16/22 14:05 [facility] (Rec: 04/16/22 15:57 [facility] [id number]) Cognitive Factors Limiting Selfcare Function Cognitive Ability Level of Alertness Alert Patient Orientation Name,Age,Birthday,Place, Situation Attention Span Ability Capable of Focused Attention, Capable of Sustained Attention Ability to Follow Commands Able to Follow One Step Commands Cognitive Comments Cognitive Assessment Comments Pt able to follow commands for mobility and ADL needs. OT- Vision and Hearing OT- Hearing Assessment OT- Hearing Assessment WFL M7 OT- IP Mobility and Balance Start: 04/16/22 15:26 Freq: Status: Active Protocol: Document 04/16/22 14:05 [facility] (Rec: 04/16/22 15:57 [facility] [id number]) OT- Bed Mobility Assessment Sit to Supine Sit to Supine Assist Total Assistance,2 Person Assistance OT-Transfer Assessment Sit to and From Stand Sit to and from Stand Maximum Assistance,2 Person Assistance Transfers Transfer Ability Moderate Assistance,2 Person Assistance Technique Transfer Destination Bed,Chair Transfer Technique Stand Step Pivot Devices Transfer Assistive Devices Gait Belt,Front Wheeled Walker Comments Mobility Comments MAX AX 2 to stand to FWW, MODA X 2 to transfer and walk, assist to guide the FWW and left hand just mainly resting on the FWW, and assist for her balance. OT- Balance Assessment Sitting Balance and Reactions Static Sitting Balance Ability Good Dynamic Sitting Balance Ability Fair Standing Balance and Reactions Static Standing Balance Ability Poor Dynamic Standing Balance Ability Poor M8 OT- IP Objective Assessments Start: 04/16/22 15:26 Freq: Status: Active Protocol: Document 04/16/22 14:05 [facility] (Rec: 04/16/22 15:57 [facility] [id number]) OT Gross Range of Motion Upper Extremity Range of Motion Assessment Left Impaired OT Strength Upper Extremity Strength Assessment Left Impaired M9 OT- IP Assessment and Plan Start: 04/16/22 15:26 Freq: Status: Active Protocol: Document 04/16/22 14:05 [facility] (Rec: 04/16/22 15:57 [facility] [id number]) OT Summary Assessment and Plan Potential Rehabilitation Potential Good Analytic Complexity at Evaluation Moderate Summary OT Impairments Pain,Range of Motion,Strength, Balance,Functional Mobility, Self-Feeding,Grooming,Dressing ,Toileting,Bathing,Toilet Transfers,Shower Transfers, Activity Tolerance Progress Towards Goals Progressing Toward Goals Assessment Summary Pt Mod Complexity and main barriers are pain, ADL's, mobility and now pt is limited for WB for LUE and WBAT for LLE. Pt needing MAX A x2 to stand , MODA X2 for walking with FWW, assist to guide the FWW as only limited to resting her Left hand on the FWW and assist for balance. Total assist x2 to get back to bed as prior tp gets into the out of the bed on the left side. Pt will benefit from skilled rehab.Currently pt has a splint on her elbow. Goals Grooming Goal Standby Assistance Dressing Goal Minimal Assistance Toileting Goal Minimal Assistance Bathing Goal Minimal Assistance Toilet Transfer Goal Standby Assistance Shower Transfer Goal Minimal Assistance Days to Meet Goals 25 Frequency of Treatment Frequency Of Treatment Once a Day Treatment Plan OT Treatment Plan ADL Training,Functional Mobility,Patient/Family Education,Discharge Planning Other Treatment Recommendations and [place] [facility] [place]. Treatment Focus Discharge Recommendations OT Discharge Recommendations SNF Rehab Transportation Needs at Discharge Wheelchair/Cabulance
--- NOTE | 2022-04-16 15:34 | PM.PN.1 ---
Subjective Subjective Date Patient Seen: 04/16/22 Interval history: 1-year-old female with a history of essential hypertension, tobacco abuse, Palacios's palsy from , COPD asthma, depression, and recent right breast cancer invasive lobular carcinoma high-grade malignancy with mastectomy with axillary dissection on 02/21/[address] Can, with secondary right breast skin flap necrosis, oncologist is Dr. Messina-?presents by EMS for evaluation of a ground level fall resulting in left hip pain.? She had a few alcoholic beverages on the night of presentation and was getting out of her car (not driving, just smoking) and got her feet caught up underneath her and fell onto her left side. Patient is status post ORIF on 04/15/2022 for left inter trochanteric hip fracture. She also sustained a left upper extremity olecranon fracture as result of the fall. She states she was quite painful weight-bearing she this morning while mobilizing with PT. she is significantly anemic this morning with hemoglobin 7.5. Denies orthostatic dizziness has been stable. Exam Vital Signs (past 8 hours): - 04/16/22 09:00 04/16/22 11:51 04/16/22 12:00 Temperature 98.0 F 97.5 F L Pulse Rate 86 93 H Respiratory Rate 16 17 Blood Pressure 125/54 L 147/54 H Pulse Oximetry 98 93 92 Oxygen Flow Rate 2 0 04/16/22 14:15 Temperature Pulse Rate 102 H Respiratory Rate 18 Blood Pressure Pulse Oximetry 93 Oxygen Flow Rate Oxygen Delivery Method Room Air Oxygen Flow Rate 0 Narrative Exam Narrative: General: Patient is alert and appearing in possible mild distress, lying in bed Lungs: Clear Heart: Regular rhythm Abdomen: Soft Extremities: Left hip dressing clean and dry, no distal edema; the left arm is in a splint, able to flex and extend fingers. Neuro: Affect slightly subdued, appears well oriented Objective Labs Result Diagrams: 04/16/22 05:53 04/16/22 05:53 Labs: Laboratory Results - last 24 hr 04/16/22 04/16/22 05:53 05:53 WBC 8.5 RBC 3.39 L Hgb 7.5 L Hct 23.6 L MCV 69.7 L MCH 22.2 L MCHC 31.9 RDW 15.6 H Plt Count 194 Sodium 133 L Potassium 4.0 Chloride 102 Carbon Dioxide 21 L BUN 5 L Creatinine 0.56 Estimated GFR > 60 BUN/Creatinine Ratio 8.9 Glucose 127 H Calcium 8.8 Magnesium 1.7 Total Bilirubin 0.6 AST 27 ALT 16 Alkaline Phosphatase 65 Total Protein 6.2 L Albumin 3.5 Globulin 2.7 Albumin/Globulin Ratio 1.3 PFSH Medical History Anxiety Broken arm COPD (chronic obstructive pulmonary disease) Depression HTN (hypertension) Hypothyroidism Lumbar radiculopathy Pulmonary nodules (~2014) Raynaud's phenomenon Thalassemia minor Surgical History Hx of right breast biopsy (01/14/22) S/P hernia surgery Family History Mother Hypertension Sister Hypertension Breast cancer Social History marital status: unmarried,single household members: none lives independently: Yes occupational status: disabled Smoking Status: Current every day smoker alcohol intake: current substance use type: does not use Assessment & Plan Assessment & Plan narrative: 1. Ground level fall while intoxicated resulting in left intertrochanteric Fracture, Left olecranon fracture, acute, present on admission -status post ORIF for the hip -status post splinting for the proximal ulnar/olecranon fracture -continue postop PT/OT -continue routine postop pain management and DVT prophylaxis -will likely required SNF for acute rehab 2. Alcohol use, acute on chronic, likely contributor to fall, present on admission -patient reported to [employer] 4 times a week -ETOH 159 on admit -[facility] protocol -precautions seizures, aspiration -thiamine, folic acid, multivitamin -alcohol cessation counseling provided 3. Breast cancer, right, invasive lobular carcinoma, high-grade tumor, acute, present on admission -status post mastectomy 02/21/2022 Dr. Can with axillary dissection, right skin flap necrotic tissue debridement 03/06/2022 -HGB 11.8, MCV 70, MCH 22 -managed by Dr. Avalos oncology/surgical intervention by Dr. Can -no blood pressures in right arm. 4. Lactic acidosis, acute, present on admission -initial lactic acid 4.6-will continue to trend.? -last lactate has normalized 5. Hypertension, essential, acute on chronic, present on admission -162/84 on admit and has stabilized to 137/74 today -continue lisinopril -IV labetalol to bridge while NPO. 6. Tobacco abuse, resulting in asthma/COPD, acute on chronic, present on admission -continue albuterol/Spiriva -nicotine patch ordered -patient education provided regarding tobacco cessation 7. Hypothyroidism, acquired, chronic, present on admission -continue levothyroxine 8. Depression, chronic, present on admission -continue sertraline 9. Malnutrition, mild, acute on chronic, likely secondary to malignancy, present on admission -BMI 21.1 -malnutrition likely secondary to breast cancer and alcohol use. -patient's malnutrition places them at high risk for medical and surgical complications because of the severe malnutrition in relation to acute illness/chronic illness.? This increases the difficulty in complexity of medical management and increases the chances poor outcomes such as mortality and morbidity as well as impaired wound healing, and immune suppression. -dietary consult ordered to evaluate and implement steps to improve caloric intake and nutrition. 10. Mild hyponatremia, > 130.? -not likely clinically significant, monitor 11. Acute blood loss anemia due to fractures -hemoglobin 7.5 postop -iron sucrose 200 mg IV x1, then start ferrous sulfate 325 mg q.d. -blood transfusion at this time not necessary but consider for hemoglobin below 7 or if appears acutely symptomatic Code status:Full Surrogate decision maker: Iglesia Stack Spouse COVID PCR:Negative Time Spent With Patient Critical Care time: I spent a total of [] minutes of critical care time on this patient's care today; this time is exclusive of procedural time.
--- NOTE | 2022-04-16 15:43 | CM.DPC ---
DCP SNF planning: Per MD, pt had ortho surg last night and per Ortho PA seems to have tolerated well and not yet stable for discharge. Per PT/OT, recommending SNF at d/c before safe return home with spouse. Per RN, no sign of ETOH withdrawal and CIWA score zero. SW met bedside with spouse and pt and explained role and discussed SNF recommendation and both in agreement that SNF needed and pt denies any hx of SNF. SW provided the SNF Choice list via Ipad and printed form and preference is [facility]) [facility]. SW discussed may not have option of SNF preference depending on bed availability and they acknowledge understanding. SW called [facility] and made new referral and willing to review and do currently have a female bed. SW called [facility] (Angela currently on vacation) and they have beds and willing to review and SW emailed new referral for review. PASRR done and printed pt's COVID vax status off [facility] website. Plan: SW to follow closely in AM with [facility] and [facility] to determine if either can accept. LALITO Gonzalez
[2022-04-16] MEDS: MAGNESIUM HYDROXIDE 30 ML UDC PO (20:04)
[2022-04-16] MEDS: SENNOSIDES 8.6 MG TABLET 17.2 MG PO (20:04)
[2022-04-16] MEDS: ACETAMINOPHEN 325 MG TABLET 650 MG PO (21:44)
[2022-04-17] VITALS (17 sets, daily range): BP systolic 119–169; BP diastolic 53–80; PULSE 80–103; RESP 15–18; TEMP 36.1–37.7; O2SAT 86–99
--- NOTE | 2022-04-17 04:59 | PC.NURSE ---
Pt appeared to be resting comfortably through night. left arm remains casted, plan for surgery of elbow today. HL RFA intact/patent. CiWa = 0 Call light w./in reach, bed alarm on for pt safety. Continue w/plnan of care.
[2022-04-17] MEDS: LEVOTHYROXINE 50 MCG TABLET PO (06:00)
[2022-04-17] MEDS: OXYCODONE IR 10 MG TABLET PO ×3 (06:13→20:46)
[2022-04-17 06:51] LABS: BUN Creatinine Ratio 11.7 (6-22); Blood Urea Nitrogen 7 mg/dL (7-17); Calcium 8.1 mg/dL (8.4-10.2); Carbon Dioxide 31 mmol/L (22-32); Chloride 99 mmol/L (98-107); Estimated Glomerular Filt Rate > 60 mL/min (>60); Glucose 117 mg/dL (80-110); HEMOLYSIS < 15 (0-50); Potassium 3.5 mmol/L (3.4-5.1); Sodium 136 mmol/L (137-145)
[2022-04-17 06:54] LABS: Hematocrit 18.7 % (36-46)
--- NOTE | 2022-04-17 06:59 | PC.NURSE ---
Critical H&H 6.0 & 18.7 Toby aware and placing orders.
--- NOTE | 2022-04-17 09:05 | PT-IP ANOTE ---
Pt on medical hold per nursing today Hgb 6.0L, Hct 18.7L, getting blood transfusion. Discussion possible surgery L UE.
--- NOTE | 2022-04-17 09:05 | PT-IP ANOTE ---
Pt on medical hold per nursing Hgb 6.0L, Hct 18.7L, getting blood transfusion this am, plan approx 1630 surgery for LUE. PT will re eval post surgery.
--- NOTE | 2022-04-17 09:05 | OT.IPNOTE ---
Pt low HH , 6.0 Hgb and 18.7 Hct and to be on hold today for therapy. To check on the pt tomorrow if pt is medically appropriate to be seen.
--- NOTE | 2022-04-17 09:06 | P.PN_ITS ---
Subjective Subjective Date Patient Seen: 04/17/22 Time Patient Seen: 09:06 Interval history: Patient states ?everything is going wrong. ? She is complaining of pain but notes she got her pain medication about 1 hour ago. She is also scheduled for left elbow surgery today. She denies any new numbness or tingling in bilateral upper or lower extremities. Exam Vital Signs (past 8 hours): - 04/17/22 04:44 Temperature 99.8 F H Pulse Rate 97 H Respiratory Rate 18 Blood Pressure 126/53 L Pulse Oximetry 93 Oxygen Flow Rate 2 Fraction of Inspired Oxygen 21 SaO2/FiO2 Ratio 438 Oxygen Delivery Method Nasal Cannula Oxygen Flow Rate 2 Narrative Exam Narrative: Pleasant 61-year-old female, resting comfortably in bed, no acute distress. L eft upper extremity: Left arm is in a long-arm splint, motor functions are grossly intact, sensation is grossly intact to light touch bilaterally. Bilateral lower extremity: Motor functions are grossly intact, sensation is grossly intact to light touch, calves are soft and nontender to palpation. Left hip dressing is clean, dry, intact. There is moderate surrounding edema, tender to palpation. No surrounding erythema or ecchymosis, no staci pus. Objective Labs Result Diagrams: 04/17/22 04:53 04/17/22 04:53 Labs: Laboratory Results - last 24 hr 04/17/22 04/17/22 04/17/22 04:53 04:53 07:15 Hgb 6.0 L* Hct 18.7 L* Sodium 136 L Potassium 3.5 Chloride 99 Carbon Dioxide 31 BUN 7 Creatinine 0.60 Estimated GFR > 60 BUN/Creatinine Ratio 11.7 Glucose 117 H Calcium 8.1 L Blood Type O Positive Antibody Screen Negative Crossmatch See Detail [facility] Medical History Anxiety Broken arm COPD (chronic obstructive pulmonary disease) Depression HTN (hypertension) Hypothyroidism Lumbar radiculopathy Pulmonary nodules (~2014) Raynaud's phenomenon Thalassemia minor Surgical History Hx of right breast biopsy (01/14/22) S/P hernia surgery Family History Mother Hypertension Sister Hypertension Breast cancer Social History marital status: unmarried,single household members: none lives independently: Yes occupational status: disabled Smoking Status: Current every day smoker alcohol intake: current substance use type: does not use Assessment & Plan Post-op Postoperative Procedures: Procedures Operation Date: 04/15/22 16:30 Actual Procedure Side Surgeon p Intramedullary Nailing Femur Left Juan Rausch MD Operation Date: 04/17/22 16:30 <No data on this case meets the specified criteria> Postoperative day: 2 Postoperative status narrative: -stable status post left femur intramedullary nailing -acute postoperative hemorrhagic anemia -left elbow olecranon fracture -ETOH abuse -UTI Postoperative plan narrative: -mobilize with PT/OT. Weightbearing as tolerated on left lower extremity. Limit weight-bearing to left upper extremity due to her olecranon fracture. -continue multimodal pain management -Lovenox 40 mg daily x4 weeks for DVT prophylaxis -NPO, except medications, pending elbow surgery this afternoon -patient is scheduled to receive 2 units of PRBCs, based on primary team recommendation. Hemoglobin is 6.0 today, down from 7.5 yesterday, 10.0 2 days ago. Patient is currently asymptomatic. -urine culture grew E coli, primary team to treat -follow-up with ortho in 10-14 days for postoperative visit
[2022-04-17] MEDS: HYDROMORPHONE 0.5 MG INJ 0.2 MG IV ×2 (10:34→13:10)
[2022-04-17] MEDS: NICOTINE 7 MG PATCH TOP (10:36)
[2022-04-17] MEDS: ALBUTEROL 2.5 MG/3 ML NEB (ADULT) INH ×4 (11:33→23:26)
--- NOTE | 2022-04-17 14:26 | CM.DPC ---
DCP SNF Planning: Per MD, pt had transfusion and will go to the OR today for her elbow fx fixation and anticipates that pt will likely be stable for d/c tomorrow Thursday to SNF. Melisa at [facility] confirms they can accept and pt at d/c which is pt/spouse's first preference and updated likely ready for d/c tomorrow. [facility] reviewing as back up. PASRR completed. Plan: SW to follow for plan of d/c to SNF tomorrow Thu if medically stable to [facility] before safe return home with spouse. Updated COVID swab likely needed. LALITO Gonzalez
--- NOTE | 2022-04-17 14:46 | PM.PN.1 ---
Subjective Subjective Date Patient Seen: 04/17/22 Interval history: 61-year-old female with a history of essential hypertension, tobacco abuse, Palacios's palsy from , COPD asthma, depression, and recent right breast cancer invasive lobular carcinoma high-grade malignancy with mastectomy with axillary dissection on 02/21/[address] Can, with secondary right breast skin flap necrosis, oncologist is Dr. Messina-?presents by EMS for evaluation of a ground level fall resulting in left hip pain.? She had a few alcoholic beverages on the night of presentation and was getting out of her car (not driving, just smoking) and got her feet caught up underneath her and fell onto her left side. Patient is status post ORIF on 04/15/2022 for left inter trochanteric hip fracture.? She also sustained a left upper extremity olecranon fracture as result of the fall.? She is scheduled for left elbow surgery today. She had significant drop in hemoglobin down to 6.0 today as a result of blood loss from fractures. Getting transfused 2 units. Exam Vital Signs (past 8 hours): - 04/17/22 06:57 04/17/22 10:45 04/17/22 10:56 Temperature 96.9 F L 98.6 F 98.1 F Pulse Rate 84 87 80 Respiratory Rate 16 18 16 Blood Pressure 148/65 H 147/59 H 127/64 Pulse Oximetry 96 99 Oxygen Delivery Method Oxygen Flow Rate 2 0 04/17/22 11:37 04/17/22 11:11 04/17/22 08:00 Temperature 98.2 F Pulse Rate 90 84 Respiratory Rate 16 16 Blood Pressure 132/72 Pulse Oximetry 98 Oxygen Delivery Method Nasal Cannula Oxygen Flow Rate 04/17/22 14:30 Temperature 99.2 F Pulse Rate 94 H Respiratory Rate 16 Blood Pressure 143/53 H Pulse Oximetry Oxygen Delivery Method Oxygen Flow Rate Fraction of Inspired Oxygen 21 SaO2/FiO2 Ratio 438 Oxygen Delivery Method Nasal Cannula Oxygen Flow Rate 0 Narrative Exam Narrative: General: Alert, comfortable NAD Lungs: Clear Heart: Regular rhythm Abdomen: Soft Extremities: Left arm is in splint, left thigh dressing clean and dry, no distal edema Neurological: Affect flat/normal, not confused Objective Labs Result Diagrams: 04/17/22 04:53 04/17/22 04:53 Labs: Laboratory Results - last 24 hr 04/17/22 04/17/22 04/17/22 04:53 04:53 07:15 Hgb 6.0 L* Hct 18.7 L* Sodium 136 L Potassium 3.5 Chloride 99 Carbon Dioxide 31 BUN 7 Creatinine 0.60 Estimated GFR > 60 BUN/Creatinine Ratio 11.7 Glucose 117 H Calcium 8.1 L Blood Type O Positive Antibody Screen Negative Crossmatch See Detail [facility] Medical History Anxiety Broken arm COPD (chronic obstructive pulmonary disease) Depression HTN (hypertension) Hypothyroidism Lumbar radiculopathy Pulmonary nodules (~2014) Raynaud's phenomenon Thalassemia minor Surgical History Hx of right breast biopsy (01/14/22) S/P hernia surgery Family History Mother Hypertension Sister Hypertension Breast cancer Social History marital status: unmarried,single household members: none lives independently: Yes occupational status: disabled Smoking Status: Current every day smoker alcohol intake: current substance use type: does not use Assessment & Plan Assessment & Plan narrative: 1. Ground level fall while intoxicated resulting in left intertrochanteric Fracture, Left olecranon fracture, acute, present on admission -status post ORIF for the hip 04/15/22 -surgery for left elbow 04/17/2022 -continue postop PT/OT -continue routine postop pain management and DVT prophylaxis -will likely required SNF for acute rehab 2. Alcohol use, acute on chronic, likely contributor to fall, present on admission -patient reported to beers 4 times a week -ETOH 159 on admit -[facility] protocol -precautions seizures, aspiration -thiamine, folic acid, multivitamin -alcohol cessation counseling provided 3. Breast cancer, right, invasive lobular carcinoma, high-grade tumor, acute, present on admission -status post mastectomy 02/21/2022 Dr. Can with axillary dissection, right skin flap necrotic tissue debridement 03/06/2022 -HGB 11.8, MCV 70, MCH 22 -managed by Dr. Avalos oncology/surgical intervention by Dr. Can -no blood pressures in right arm. 4. Lactic acidosis, acute, present on admission, resolved -initial lactic acid 4.6-will continue to trend.? -last lactate has normalized 5. Hypertension, essential, acute on chronic, present on admission -162/84 on admit and has stabilized to 137/74 today -continue lisinopril 6. Tobacco abuse, resulting in asthma/COPD, acute on chronic, present on admission -continue albuterol/Spiriva -nicotine patch ordered -patient education provided regarding tobacco cessation 7. Hypothyroidism, acquired, chronic, present on admission -continue levothyroxine 8. Depression, chronic, present on admission -continue sertraline 9. Malnutrition, mild, acute on chronic, likely secondary to malignancy, present on admission -BMI 21.1 -malnutrition likely secondary to breast cancer and alcohol use. -patient's malnutrition places them at high risk for medical and surgical complications because of the severe malnutrition in relation to acute illness/chronic illness.? This increases the difficulty in complexity of medical management and increases the chances poor outcomes such as mortality and morbidity as well as impaired wound healing, and immune suppression. -dietary consult ordered to evaluate and implement steps to improve caloric intake and nutrition. 10. Mild hyponatremia, > 130.? -not likely clinically significant, monitor 11. Acute blood loss anemia due to fractures -hemoglobin 12.1-->7.5-->6.0 -04/17 iron sucrose 200 mg IV x1, then start ferrous sulfate 325 mg q.d. -04/18 transfused 2 units PRBC SNF when stable Time Spent With Patient Critical Care time: I spent a total of [] minutes of critical care time on this patient's care today; this time is exclusive of procedural time.
[2022-04-17] MEDS: MAGNESIUM HYDROXIDE 30 ML UDC PO (20:45)
[2022-04-17] MEDS: TRIMETH/SULFA 160/800 (DS) TABLET 1 TAB PO (20:46)
[2022-04-17] MEDS: ZOLPIDEM 5 MG TABLET PO (20:46)
[2022-04-17] MEDS: DOCUSATE 100 MG CAPSULE PO (20:46)
[2022-04-17] MEDS: SENNOSIDES 8.6 MG TABLET 17.2 MG PO (20:46)
[2022-04-17 21:12] LABS: Hematocrit 27.2 % (36-46); Hemoglobin 8.9 g/dL (12.0-16.0)
[2022-04-18 03:52] VITALS: BP 152/65; PULSE 81; RESP 17; TEMP 36.1; O2SAT 98
[2022-04-18] MEDS: ACETAMINOPHEN 325 MG TABLET 650 MG PO (06:00)
[2022-04-18] MEDS: LEVOTHYROXINE 50 MCG TABLET PO (06:00)
[2022-04-18] MEDS: OXYCODONE IR 10 MG TABLET PO (06:01)
[2022-04-18 07:00] VITALS: BP 122/32; PULSE 73; RESP 18; TEMP 36.8; O2SAT 97
--- NOTE | 2022-04-18 07:39 | PM.PNPO.1 ---
Subjective Subjective Date Patient Seen: 04/18/22 Time Patient Seen: 07:39 Interval history: Patient is complaining of moderate left pain, mild left elbow pain. Overall she is feeling good and would like to go home today. She was scheduled for left elbow surgery yesterday, but was not cleared by the hospitalist team. She was given some PRBCs and her hemoglobin has stabilized. The patient notes she would prefer to have her elbow surgery as an outpatient, and Dr. Rausch is in agreement. Exam Vital Signs (past 8 hours): - 04/18/22 03:52 Temperature 96.9 F L Pulse Rate 81 Respiratory Rate 17 Blood Pressure 152/65 H Pulse Oximetry 98 Oxygen Flow Rate 2 Fraction of Inspired Oxygen 21 SaO2/FiO2 Ratio 438 Oxygen Delivery Method Room Air Oxygen Flow Rate 2 Narrative Exam Narrative: Pleasant 61-year-old female, resting comfortably in bed, no acute distress. Bilateral upper extremity: Left upper extremity is in a long-arm splint, motor functions are grossly intact, sensation is grossly intact to light touch. Bilateral lower extremity: Motor functions are grossly intact, sensation is grossly intact to light touch, calves are soft and nontender to palpation. Left hip dressing is clean, dry, intact. There is [id number] surrounding edema and tenderness, no induration, erythema, or staci pus. Objective Labs Result Diagrams: 04/17/22 19:12 04/17/22 04:53 Labs: Laboratory Results - last 24 hr 04/17/22 04/17/22 07:15 19:12 Hgb 8.9 L Hct 27.2 L Blood Type O Positive Antibody Screen Negative Crossmatch See Detail [facility] Medical History Anxiety Broken arm COPD (chronic obstructive pulmonary disease) Depression HTN (hypertension) Hypothyroidism Lumbar radiculopathy Pulmonary nodules (~2014) Raynaud's phenomenon Thalassemia minor Surgical History Hx of right breast biopsy (01/14/22) S/P hernia surgery Family History Mother Hypertension Sister Hypertension Breast cancer Social History marital status: unmarried,single household members: none lives independently: Yes occupational status: disabled Smoking Status: Current every day smoker alcohol intake: current substance use type: does not use Assessment & Plan Post-op Postoperative Procedures: Procedures Operation Date: 04/15/22 16:30 Actual Procedure Side Surgeon p Intramedullary Nailing Femur Left Juan Rausch MD Operation Date: 04/17/22 16:30 <No data on this case meets the specified criteria> Postoperative day: 3 Postoperative status narrative: -stable status post left femur intramedullary nailing -acute postoperative hemorrhagic anemia -left elbow olecranon fracture -ETOH abuse -UTI Postoperative plan narrative: -mobilize with PT/OT. Weightbearing as tolerated on left lower extremity. Limit weight-bearing to left upper extremity due to her olecranon fracture. -continue multimodal pain management -Lovenox 40 mg daily x4 weeks for DVT prophylaxis -hemoglobin has stabilized after2 units of PRBCs on 04/17/2022. Patient is currently asymptomatic, continue to monitor. -urine culture grew E coli, primary team treating with 3 days of Bactrim b.i.d. -per Dr. Rausch, olecranon fracture is okay to be surgically fixed as an outpatient. The patient would prefer this and would like to be discharged today. -disposition: Per primary team, hopefully today -follow-up with ortho in 10-14 days for postoperative visit -orthopedics to sign off at this point, please do not hesitate to re-consult with any questions or concerns.
[2022-04-18] MEDS: ENOXAPARIN 40 MG/0.4 ML SYRINGE SUBCUT (08:55)
[2022-04-18] MEDS: DOCUSATE 100 MG CAPSULE PO (08:56)
[2022-04-18] MEDS: TRIMETH/SULFA 160/800 (DS) TABLET 1 TAB PO (08:56)
[2022-04-18] MEDS: FERROUS SULFATE 325 MG TABLET PO (08:56)
[2022-04-18] MEDS: MULTIVITAMIN 1 TABLET 1 TAB PO (08:56)
[2022-04-18] MEDS: FOLIC ACID 1 MG TABLET PO (08:56)
[2022-04-18] MEDS: NICOTINE 7 MG PATCH TOP (08:56)
[2022-04-18] MEDS: THIAMINE 100 MG TABLET PO (08:56)
--- NOTE | 2022-04-18 09:18 | PM.DS.1 ---
History of Present Illness History of Present Illness Date Patient Seen: 04/18/22 Chief complaint: GLF/ ETOH/ Exposure Narrative: Per H&P: Nedra Mccullough is a 61-year-old female with a history of essential hypertension, tobacco abuse, Palacios's palsy from , COPD asthma, depression, and recent right breast cancer invasive lobular carcinoma high-grade malignancy with mastectomy with axillary dissection on 02/21/[address] Can, with secondary right breast skin flap necrosis, oncologist is Dr. Messina-?presents by EMS for evaluation of a ground level fall resulting in left hip pain.? She had a few alcoholic beverages tonight and was getting out of her car and got her feet caught up underneath her and fell onto her left side.? She denies any head neck or back pain.? She denies chest pain or shortness of breath.? She does have pain of her left elbow and left hip.? There is some shortening and external rotation.? She does not take any blood thinners.? She denies headache, fever, body aches, chills, abdominal pain, nausea, vomiting, constipation, rash, hematemesis, hematuria, melena, denies history of osteopenia or osteoporosis.? Patient reports that she drinks 2 beers 4 times a week, and smokes only 2-3 cigarettes per day, and has had diarrhea for the past 2 days.? Because the patient developed a postop infection in the right breast skin flap that led to necrosis was unable to have placement of a port and begin chemotherapy at the beginning of March as originally planned. At the time of admit patient's temp 98.4?, BP 162/84, HR 91, R 14, O2 saturation 94% on room air.? Patient received a dose of pain medication 15 minutes prior to admit exam, she is restless in the bed and is actually laying on her left hip and continues to frequently move and reposition causing pain.? The patient appears to still be intoxicated, her pain is controlled when she does not move.? Patient does report that her pain in her left elbow is has significantly improved secondary to having splinted.? HGB 11.8, MCV 70, MCH 22, sodium 134, bicarb 18, creatinine 0.51, lactate 4.6, troponin within normal limits, Mag normal 2.0, ETOH 159.? Patient's head CT, C-spine, and chest x-ray were negative for any acute processes or fracture.? Left elbow x-ray demonstrated comminuted and displaced olecranon fracture.? Left x-ray demonstrated impacted and displaced left inter trochanteric fracture with soft tissue edema.? Patient admitted for ground level fall while intoxicated resulting in pathological left intertrochanteric and left olecranon fracture, in the setting of invasive lobular carcinoma high-grade malignancy of the right breast, status post mastectomy 02/21/2022. Discharge Providers Provider Date of admission: 04/15/22 00:57 Discharge Date: 04/18/22 Primary care physician: Paulette Montgomery MD Consults: 04/15/22 01:44 Consult to Physician Routine Comment: Consulting Provider: Juan Rausch Reason for consultation: lt hip fx Has provider been notified: Yes 04/15/22 01:45 Consult to Dietitian, Adult Routine Comment: Reason For Exam: Cancer, BMI 21.1, fx 04/15/22 19:30 Consult to Discharge Planning Routine Comment: Consult to Physical Therapy Evaluate & Treat Comment: Physician Instructions: Evaluate and Treat 04/16/22 09:24 Consult to Occupational Therapy Evaluate & Treat Comment: Physician Instructions: Evaluate and treat Discharge provider: Madyson Norton MD Summary Hospital Course Discharge Diagnosis: [place] [address] Progress Note Patient: Nedra Mccullough MR#: [id number] : 1960 Acct:[id number] Age/Sex: 61 / F ? Date of Service: 04/15/22 Provider:?Avel Wheeler MD ADDENDUMUrine culture from admission is growing sensitive.? Started patient on Bactrim ds 1 tablet b.i.d. for 3 days. Addendum Documented By: Avel Wheeler MD 04/17/221615 Addendum Signed By: <Electronically signed by Avel Wheeler MD> 04/17/22 1616 Subjective Subjective Date Patient Seen: 04/17/22 Interval history: 61-year-old female with a history of essential hypertension, tobacco abuse, Palacios's palsy from , COPD asthma, depression, and recent right breast cancer invasive lobular carcinoma high-grade malignancy with mastectomy with axillary dissection on 02/21/[address] Can, with secondary right breast skin flap necrosis, oncologist is Dr. Messina-?presents by EMS for evaluation of a ground level fall resulting in left hip pain.? She had a few alcoholic beverages on the night of presentation and was getting out of her car (not driving, just smoking) and got her feet caught up underneath her and fell onto her left side. Patient is status post ORIF on 04/15/2022 for left inter trochanteric hip fracture.? She also sustained a left upper extremity olecranon fracture as result of the fall.? She is scheduled for left elbow surgery today. She had significant drop in hemoglobin down to 6.0 today as a result of blood loss from fractures.? Getting transfused 2 units. Exam Vital Signs (past 8 hours): - ? 04/17/22 06:57 04/17/22 10:45 04/17/22 10:56 Temperature 96.9 F L 98.6 F 98.1 F Pulse Rate 84 87 80 Respiratory Rate 16 18 16 Blood Pressure 148/65 H 147/59 H 127/64 Pulse Oximetry 96 99 ? Oxygen Delivery Method ? ? ? Oxygen Flow Rate 2 0 ? ? 04/17/22 11:37 04/17/22 11:11 04/17/22 08:00 Temperature ? 98.2 F ? Pulse Rate 90 84 ? Respiratory Rate 16 16 ? Blood Pressure ? 132/72 ? Pulse Oximetry 98 ? ? Oxygen Delivery Method ? ? Nasal Cannula Oxygen Flow Rate ? 04/17/22 14:30 Temperature 99.2 F Pulse Rate 94 H Respiratory Rate 16 Blood Pressure 143/53 H Pulse Oximetry ? Oxygen Delivery Method ? Oxygen Flow Rate ? Fraction of Inspired Oxygen ? 21? SaO2/FiO2 Ratio ? 438 ? Oxygen Delivery Method? Nasal Cannula ? Oxygen Flow Rate? 0 ? Narrative Exam Narrative: General:? Alert, comfortable NAD Lungs:? Clear Heart:? Regular rhythm Abdomen:? Soft Extremities:? Left arm is in splint, left thigh dressing clean and dry, no distal edema Neurological:? Affect flat/normal, not confused Objective Labs Result Diagrams: 04/17/22 04:53? 04/17/22 04:53? Labs: Laboratory Results - last 24 hr ? 04/17/22 04/17/22 04/17/22 ? 04:53 04:53 07:15 Hgb ?6.0 L* ? ? Hct ?18.7 L* ? ? Sodium ? ?136 L ? Potassium ? ?3.5 ? Chloride ? ?99 ? Carbon Dioxide ? ?31 ? BUN ? ?7 ? Creatinine ? ?0.60 ? Estimated GFR ? ?> 60 ? BUN/Creatinine Ratio ? ?11.7 ? Glucose ? ?117 H ? Calcium ? ?8.1 L ? Blood Type ? ? ?O Positive Antibody Screen ? ? ?Negative Crossmatch ? ? ?See Detail PFSH Medical History? Anxiety Broken arm COPD (chronic obstructive pulmonary disease) Depression HTN (hypertension) Hypothyroidism Lumbar radiculopathy Pulmonary nodules (~2014) Raynaud's phenomenon Thalassemia minor Surgical History? Hx of right breast biopsy (01/14/22) S/P hernia surgery Family History? Mother HypertensionSister Hypertension Breast cancer Social History? marital status:? unmarried,single household members:? none lives independently:? Yes occupational status:? disabled Smoking Status:? Current every day smoker alcohol intake:? current substance use type:? does not use Assessment & Plan Assessment & Plan narrative: 1. Ground level fall while intoxicated resulting in left intertrochanteric Fracture, Left olecranon fracture, acute, present on admission 2. Alcohol misuse vs dependence 3. Breast cancer, right, invasive lobular carcinoma, high-grade tumor, acute, present on admission 4. Lactic acidosis, acute, resolved 5. Hypertension, essential, chronic, stable 6. Tobacco abuse, resulting in asthma/COPD 7. Hypothyroidism, acquired, chronic, 8. Depression, chronic 9. Malnutrition, mild, acute on chronic, likely secondary to malignancy 10. Mild hyponatremia, improved 11. Acute blood loss anemia due to fractures Hospital Course: Pt has hx of HTN, tobacco dependence, recent dx of breast cancer s/p mastectomy w/axillary dissection complicated by skin flap necrosis, congenital Palacios's Palsy, Asthma/COPD, who drank several alcoholic beverages on the evening of admission and suffered a mechanical fall resulting in left intertrochanteric hip fx and left olecranon fx. She underwent ORIF of the left hip on 04/15/22. She was slated for elbow surgery on 04/17 but had a significant decline in Hgb requiring 2 units PRBCs and surgery was delayed. The plan was for surgery to be performed on 04/18, but pt elected to d/c to [facility] and f/u in 7-10 days w/Orthopedic surgery for fracture repair. Her Hgb was up to 8.9 prior to discharge. She was somewhat unhappy about the need for d/c to SNF, but her spouse explained that he isn't able to care for her at home w/her left side being relatively incapacitated and her need for significant mobility assistance. She expressed understanding and agreed w/DC plan. She is d/c'd in stable condition. Status at Discharge Cognitive/behavioral status at discharge: at baseline, oriented Functional status at discharge: uses cane/walker Time Spent with Patient Time spent: Less than 30 minutes Exam Vital Signs (past 8 hours): Fraction of Inspired Oxygen 21 SaO2/FiO2 Ratio 438 Oxygen Delivery Method Nasal Cannula Oxygen Flow Rate 0 Const General: cooperative, well developed and No acute distress Orientation: alert and oriented x3 HENNV Head: normocephalic Face and sinus: normal facial exam Resp Auscultation: clear to auscultation bilaterally Cardio Rate: regular rate Rhythm: regular rhythm Heart Sounds: no gallops, no murmurs and no rubs GI Palpation: soft and No tender Auscultation: normal bowel sounds Skin General: no rashes or lesions noted, dry skin and warm Neuro General: patient alert, patient awake and patient oriented x3 Extrem Other: no C/C/E Objective Labs 04/17/22 19:12 04/17/22 04:53 PFSH Medical History Anxiety Broken arm COPD (chronic obstructive pulmonary disease) Depression HTN (hypertension) Hypothyroidism Lumbar radiculopathy Pulmonary nodules (~2014) Raynaud's phenomenon Thalassemia minor Surgical History Hx of right breast biopsy (01/14/22) S/P hernia surgery Family History Mother Hypertension Sister Hypertension Breast cancer Social History marital status: unmarried,single household members: none lives independently: Yes occupational status: disabled Smoking Status: Current every day smoker alcohol intake: current substance use type: does not use Discharge Plan Discharge Plan Patient Disposition: SNF Transfer to: [facility] Under care of provider: Facility MD Provider Discharge Comment: Follow up with Orthopedic surgery for scheduling your elbow surgery Discharge orders & Medications Prescriptions: New sennosides [senna] 8.6 mg Tablet 17.2 mg PO BEDTIME Qty: 30 0RF albuterol sulfate 2.5 mg /3 mL (0.083 %) Solution For Nebulization 2.5 mg INH [id number] Qty: 10 0RF sulfamethoxazole-trimethoprim 800-160 mg Tablet 1 tab PO BID Qty: 4 0RF magnesium hydroxide [Milk of Magnesia] 400 mg/5 mL Suspension 30 ml PO BEDTIME Qty: 5 0RF ferrous sulfate 325 mg (65 mg iron) Tablet 325 mg PO DAILY Qty: 30 0RF lidocaine 5 % Adhesive Patch,Medicated 1 ea topical BEDTIME Qty: 5 0RF zolpidem 5 mg Tablet 5 mg PO BEDTIME PRN (Reason: Sleep) Qty: 10 0RF nicotine 7 mg/24 hr Patch 24 Hour 7 mg topical DAILY Qty: 5 0RF oxycodone 10 mg Tablet 10 mg PO Q3HR PRN (Reason: Pain, Moderate (4-6)) Qty: 20 0RF thiamine mononitrate (vit B1) 100 mg Tablet 100 mg PO DAILY Qty: 7 0RF multivitamin with folic acid [Tab-A-Bo] 400 mcg Tablet 1 tab PO DAILY Qty: 30 0RF enoxaparin [Lovenox] 40 mg/0.4 mL Syringe 40 mg SUBCUT DAILY Qty: 14 0RF nicotine 7 mg/24 hr patch 24 hour 1 patch transdermal Q24H Qty: 7 0RF Continued levothyroxine 50 mcg capsule 50 mcg PO DAILY lisinopril 5 mg tablet 5 mg PO DAILY sertraline 100 mg tablet 100 mg PO DAILY aspirin [Adult Low Dose Aspirin] 81 mg tablet,delayed release (DR/EC) 81 mg PO DAILY albuterol sulfate [Ventolin HFA] 1 puff inhalation DAILY tiotropium bromide [Spiriva Respimat] 1 puff inhalation DAILY polyethylene glycol 3350 [Miralax] 17 gram/dose powder 17 g PO DAILY Qty: 850 0RF docusate sodium [Colace] 100 mg capsule 100 mg PO BID Qty: 30 0RF acetaminophen [Tylenol] 325 mg capsule 650 mg PO QID PRN (Reason: pain) Qty: 60 0RF lorazepam [Ativan] 0.5 mg Tablet 0.5 mg PO Q6HR PRN (Reason: Nausea And Vomiting) Qty: 30 0RF Rx Instructions: take 1 tab as needed for nausea or vomiting every 6 hours prochlorperazine maleate [Compazine] 10 mg Tablet 10 mg PO Q6H PRN (Reason: Nausea And Vomiting) Qty: 60 0RF Rx Instructions: take 1 tablet/capsule as needed for nausea and vomiting every 6 hours ondansetron 4 mg Tablet,Disintegrating 4 mg PO Q6H PRN (Reason: Nausea And Vomiting) Qty: 60 1RF Rx Instructions: take 1 tab by mouth and let dissolve as needed every 6 hrs for nausea and vomiting Follow up/Referrals: Paulette Montgomery MD [Primary Care Provider] - Juan Rausch MD [Physician] - (Please call to make an appointment in 10-14 days for postoperative visit and to schedule surgery for your left elbow fracture) Diet/Activity/Treatments Diet: Diet as Tolerated Liquid consistency: Normal/Thin Food texture: Regular Activity: WBAT LLE. Limited WB to LUE Catheter: 2-way Olmedo Catheter comment: Voiding trial when mobility improves Oxygen: N/A Other treatments: -weightbearing as tolerated on left lower extremity. Limit weight-bearing to left upper extremity due to your elbow fracture -Lovenox 40 mg daily x4 weeks for DVT prophylaxis -keep left arm splint clean and dry. Do not get it wet, this will compromise the integrity of the splint. Skin/Wound/Dressing Care Report to your healthcare provider any signs of infection, such as:: chills, fever, night sweats, unusual drainage and unusual redness Visit Report/Discharge Packet Instructions: DI for Open Reduction Internal Fixation Surgery Stand Alone Forms: Patient Portal/API, Surgery Discharge Discharge Data Primary Care Provider: Paulette Montgomery
[2022-04-18 09:44] VITALS: PULSE 83; RESP 16; O2SAT 97
[2022-04-18] MEDS: ALBUTEROL 2.5 MG/3 ML NEB (ADULT) INH (09:44)
[2022-04-18 11:00] VITALS: BP 182/85; PULSE 87; RESP 16; TEMP 36.6; O2SAT 98
--- NOTE | 2022-04-18 11:49 | PT-IP ANOTE ---
Pt refused PT and OT d/t DCing to SNF at 1pm
[2022-04-18 13:07] LABS: COVID19 -Nasal RAPID Negative (Negative)
--- NOTE | 2022-04-18 14:53 | CM.DPNOTE ---
Addendum entered by LALITO Vincent 04/18/22 15:46: IMM signed and scanned per Fatoumata Jorgensen 04.18.22 Original Note: DC Note Discharge to [facility] today, p/u from facility van at 1300. Coordinated this DC with Melisa Knowles [phone] F [phone] at [facility] PCR updated All completed DC orders and signed med list with [facility] faxed to [facility]. Patient and spouse advised that no smoking allowed on [facility] campus; Nicotine patch ordered by Dr Norton Requested that COLLETTE Huff call report to [facility] main number Patient and spouse agreeable to plan and appreciative P DC to [facility] today via w/c rico JW
--- NOTE | 2022-05-08 13:40 | PC.NURSE ---
Attempted pt contact: This RN attempted to contact pt regarding follow up care r/t breast cancer dx. According to medical records pt was seen in ED after fall resulting in fractured left femur and left olecranon. Pt was admitted inpatient at [facility], surgery completed and DC to facility on 04[facility]18. [facility] spoke with Melisa who informed this blog writer, pt was DC'd on 05/02 to home. This RN called both phone numbers on file and left VM to contact this clinic to coordinate care of breast cancer.
== END 2022-04-18 13:17 | DRG 481 ==
LOC: ED 23:09 → AC 04-15 00:58
PROVIDERS: Internal Medicine; Neuromusculoskeletal Medicine, Sports Medicine; Orthopaedic Surgery; Admitting Provider Nurse Practitioner Family; Emergency Provider Emergency Medicine; PCP Family Medicine; Referring Provider Emergency Medicine; Visit Provider Nurse Practitioner Family
PROC: 0QS704Z Reposition Left Upper Femur with Internal Fixation Device, Open Approach (ICD-10-PCS; CPT 27245; principal; 2022-04-15 16:30)
DX: S72.142A Displaced intertrochanteric fracture of left femur, initial encounter for closed fracture (principal); D62 Acute posthemorrhagic anemia; N39.0 Urinary tract infection, site not specified; E87.21 Acute metabolic acidosis; E44.1 Mild protein-calorie malnutrition; S52.022A Displaced fracture of olecranon process without intraarticular extension of left ulna, initial encounter for closed fracture; F17.210 Nicotine dependence, cigarettes, uncomplicated; F10.90 Alcohol use, unspecified, uncomplicated; I10 Essential (primary) hypertension; J44.9 Chronic obstructive pulmonary disease, unspecified; E03.9 Hypothyroidism, unspecified; F32.A Depression, unspecified; C50.911 Malignant neoplasm of unspecified site of right female breast; B96.20 Unspecified Escherichia coli [E. coli] as the cause of diseases classified elsewhere; W01.0XXA Fall on same level from slipping, tripping and stumbling without subsequent striking against object, initial encounter; Y90.6 Blood alcohol level of 120-199 mg/100 ml; Z17.0 Estrogen receptor positive status [ER+]; Z68.21 Body mass index [BMI] 21.0-21.9, adult; Z20.822 Contact with and (suspected) exposure to COVID-19
CPT/HCPCS: 29105; 36415; 36430; 70450; 71045; 72125; 73080; 73502; 76000; 80048; 80051; 80053; 80320; 82550; 82553; 82962; 83605; 83690; 83735; 84439; 84443; 84484; 85014; 85018; 85025; 85027; 85610; 86850; 86900; 86901; 87077; 87086; 87186; 87635; 93005; 94640; 94762; 96374; 97162; 97166; 97530; 99284; C9803; P9016; U0003; U0005; J0690; J1170; J1650; J1756; J2250; J3010; J7613

== ENCOUNTER → 2022-05-20 13:18 | Outpatient (CLI) | payer MEDICARE, MEDICAID, SELFPAY ==
[2022-04-15 02:30] VITALS: BMI 21.1
--- NOTE | 2022-05-20 13:20 | DI.CT.S_ITS ---
PROCEDURE: CT CHEST WO CON INDICATIONS: R/O lung metastasis TECHNIQUE: Noncontrast 5 mm thick sections acquired from the pulmonary apices to the posterior costophrenic angles. 1 mm lung window, 5 mm thick coronal and sagittal and 7 mm axial MIP reformats were then acquired. For radiation dose reduction, the following was used: automated exposure control, adjustment of mA and/or kV according to patient size. COMPARISON: [facility], CT, CT CHEST ABD PEL W CON, 02/12/2022, 12:03. FINDINGS: Image quality: Good Lungs and pleura: No dense consolidation. No pleural effusions. Scattered areas of scarring. These are stable from prior. No new or enlarging or overtly suspicious nodules. A few micro nodules are stable, for example on the left 08/12. Mediastinum, heart, and esophagus: Mild esophageal wall thickening, not well evaluated on CT. Coronary calcifications. Borderline cardiomegaly and trace pericardial effusion. Similar prominent distal periesophageal lymph node. No pathologic adenopathy by size criteria otherwise. Chest wall and thyroid: Right axillary clips and right chest wall postsurgical changes. Mild soft tissue stranding at the surgical sites. No defined mass is identified. Suspected sebaceous cyst in the back. Upper abdomen: Not well evaluated. Suspected left lobe cyst. Stable left adrenal adenoma. Bones: Degenerative changes and scoliosis. No acute or suspicious osseous finding. Multiple rib deformities, nonacute appearing. IMPRESSION: No acute thoracic pathology identified. No overtly suspicious pulmonary nodule. Other stable findings as above. This is a limited noncontrast CT. Mild fat stranding at the right chest wall and axillary surgical sites, attention on follow-up. Dictated by: John Corrales M.D. on 05/20/2022 at 13:49 Approved by: John Corrales M.D. on 05/20/2022 at 13:56
== END ==
PROVIDERS: PCP Family Medicine; Referring Provider Internal Medicine Hematology & Oncology; Visit Provider Internal Medicine Hematology & Oncology
DX: C50.911 Malignant neoplasm of unspecified site of right female breast (principal); R91.8 Other nonspecific abnormal finding of lung field; I25.10 Atherosclerotic heart disease of native coronary artery without angina pectoris; D35.02 Benign neoplasm of left adrenal gland
CPT/HCPCS: 71250

== ENCOUNTER → 2022-06-04 08:28 | Outpatient (CLI) | payer MEDICARE, MEDICAID, SELFPAY ==
[2022-04-15 02:30] VITALS: BMI 21.1
--- NOTE | 2022-06-04 08:29 | DI.NM.S_ITS ---
PROCEDURE: LA BONE SCAN WHOLE BODY RADIOPHARMACEUTICAL: 19.6 mCi Tc-99m MDP IV. INDICATIONS: breast cancer TECHNIQUE: Delayed whole-body scintigrams were obtained approximately 3-4 hours after intravenous injection of radiotracer. Anterior and posterior views were acquired from vertex to feet. COMPARISON: [facility], NM, NM BONE SCAN WHOLE BODY, 02/14/2022, 10:50. [facility], CR, XR HIP W PEL IF DONE LT 2V, 04/15/2022, 19:31. [facility], CR, XR HIP W PEL IF DONE LT 2V, 04/14/2022, 22:58. [facility], CT, CT CHEST WO CON, 05/20/2022, 13:24. FINDINGS: Intensely increased uptake in the left proximal femur is new, correlating with new fracture and postsurgical change. Mildly increased uptake in the right 6 and 7th rib correlates with old fractures seen on the comparison CT. No lesions are identified in skull, sternum, clavicles, scapulae, bony pelvis, and visualized shafts of the long bones. There is moderate to severe scoliosis. There are foci of increased uptake in cervical, thoracic and lumbar spine most likely secondary to degenerative disc and facet disease; early metastasis to spine could be obscured by degenerative changes. There are foci of increased periarticular activity most pronounced in left shoulder and wrist, compatible with degenerative/arthritic changes. Note is made of intense uptake in the right wrist, likely caused by tracer extravasation at the injection site. IMPRESSION: 1. No definitive scintigraphic findings for osseous metastatic disease. Dictated by: Liss Patterson M.D. on 06/04/2022 at 14:23 Approved by: Liss Patterson M.D. on 06/05/2022 at 10:55
== END ==
PROVIDERS: PCP Family Medicine; Referring Provider Internal Medicine Hematology & Oncology; Visit Provider Internal Medicine Hematology & Oncology
DX: C50.911 Malignant neoplasm of unspecified site of right female breast (principal)
CPT/HCPCS: 78306; A9503

== ENCOUNTER 2022-06-12 09:09 | Day surgery (SDC) | payer MEDICARE, MEDICAID, SELFPAY ==
[2022-04-15 02:30] VITALS: BMI 21.1
[2022-06-09 14:55] VITALS: BMI 22.4
[2022-06-12] VITALS (8 sets, daily range): BP systolic 152–197; BP diastolic 70–98; PULSE 66–78; RESP 12–16; TEMP 36.2–36.7; O2SAT 94–99; BMI 22.4
[2022-06-12] MEDS: LACTATED RINGERS 1,000 ML 42 ML IV ×2 (09:57→12:34)
--- NOTE | 2022-06-12 11:01 | PM.PREOP ---
Pre-operative Note Interval Note History & Physical reviewed/Exam performed by Physician: Yes Changes to H&P: No
[2022-06-12] MEDS: CEFAZOLIN 2 GM/100 ML PREMIX 100 ML IV (11:14)
--- NOTE | 2022-06-12 11:42 | SUR.OPER ---
Lateral on a dey bag, head on pillow, gel axillary roll in place, bottom leg bent with gel pad under knee to foot, upper leg straight and supported with pillows. Upper arm supported by lateral arm barcenas with gel pad and secured over bottom arm to padded arm board. Safety belt at hip, tape over blanket lower legs. Pt positioned per direction and supervision of Dr Rausch
[2022-06-12] MEDS: BUPIVACAINE 0.5% W/ EPI (PF) 30 ML VIAL INJ (11:48)
[2022-06-12] MEDS: OXYCODONE IR 5 MG TABLET PO ×2 (14:16→15:04)
--- NOTE | 2022-06-12 14:18 | PM.OP.1 ---
Operative Date/Time/Diagnoses Date of procedure: 06/12/22 Time of procedure: 11:30 Pre-op diagnosis: Chronic left olecranon fracture Post-op diagnosis: same Procedure & Clinicians Procedure: Open reduction internal fixation of a left olecranon fracture Same procedure as scheduled: Yes Indications: Displaced olecranon fracture left elbow Surgeon: Juan Rausch Click Yes if Unassisted: Yes Anesthesia Type: General Operative Notes Findings: Displaced olecranon fracture. The fracture fragment was quite soft and fragmented very easily. Closure Type: primary Applied: implant(s) (Accu Med olecranon plate) Estimated Blood Loss (mL): 10 Tourniquet time (min): 86 Procedure in detail: On date of service, patient was met in the holding area where her operative site was signed and witnessed by the OR staff. The surgeries once again discussed with the patient in remaining questions or concerns she had were answered fully. Patient was taken back to the operating theater and placed on the operating table in a supine position. Great care was taken to ensure that all bony prominences were appropriately padded. Time-out was performed verifying patient's name procedure and operative site. Patient was placed in the lateral position axillary roll was placed. Left arm was prepped and draped in normal sterile fashion and an Esmarch was used to exsanguinate the limb tourniquet was turned up to 250 mm of mercury. Posterior incision was made starting just proximal to tip of olecranon going distally along the palpable ulnar shaft. Ten blade was used to incise through skin and fascial tissue. Electrocautery was used to achieve hemostasis. Deep knife was then used to sharply dissect on to the olecranon as well as ulnar shaft. This gave us good visualization of the fracture. The insertion the triceps tendon was undisturbed. Due to the fact that this fracture was about 2-month-old there was a lot of soft callus and fibrous tissue that needed to be cleaned up from the proximal olecranon as well as the fracture fragment. Combination of rongeur and curette were used to freshen up the bony surfaces. Rock it was then noted that the fracture fragment was quite friable and would crumble relatively easily. Multiple K-wires were used to reduce the fragment back onto the proximal olecranon. Great care was taken to try to ensure we did not break apart the fragmented piece. Next, olecranon plate was placed and held provisionally with a 2nd 2 point reduction forceps. C-arm was used again to verify reduction as well as plate positioning. Plate was then secured both distally and proximally with a combination of locking nonlocking screws. Two screws were placed at the proximal aspect of plate is going across the olecranon the fracture into the subchondral bone of the coronoid. This provided good compression of fracture. Final x-rays were obtained verifying reduction plate positioning and screw length and positioning. Multiple views were obtained to verify none of the screws were intra-articular. Due to the poor quality of the bone was felt that patient would need to be immobilized for 4-6 weeks before starting any range of motion. The wound was then copiously irrigated. The wound was then closed in layered fashion. Patient's arm was then cleaned, dried, and dressed. Patient was placed into a posterior splint and taken to the PACU in stable condition. Complications: none Post-operative Condition: stable Disposition: PACU Plan for aftercare: Patient will be immobilized for 2 weeks in her splint. After that she can go into a locked elbow brace. Due to the softness of the fracture fragment we will need to be careful with her range of motion.
== END 2022-06-12 15:20 | disposition home or self-care (01) ==
PROVIDERS: PCP Family Medicine; Referring Provider Orthopaedic Surgery; Visit Provider Orthopaedic Surgery
PROC: 0RSM04Z Reposition Left Elbow Joint with Internal Fixation Device, Open Approach (ICD-10-PCS; CPT 24685; principal; 2022-06-12 10:45)
DX: S52.022A Displaced fracture of olecranon process without intraarticular extension of left ulna, initial encounter for closed fracture (principal)
CPT/HCPCS: 24685; J0690; J1100; J1170; J2250; J2405; J2704; J3010

== ENCOUNTER 2022-06-20 13:52 | Emergency (ER) | payer MEDICARE, MEDICAID, SELFPAY ==
[2022-04-15 02:30] VITALS: BMI 21.1
[2022-06-20 14:12] VITALS: BP 218/103; PULSE 76; RESP 16; TEMP 36.5; O2SAT 98; BMI 23.3
--- NOTE | 2022-06-20 14:59 | PC.NURSE ---
Pt reports surgery with Dr Allen 06/12 for fractured elbow. Arrives to ED without pain. States that she feels blood dripping down her arm inside her cast and cast feeling very tight. Cast covers posterior wrist to mid humerus with kerlex covering the anterior part of arm from wrist to humerus. Kerlex cut and arm removed from casting momentarily by Dr Catalan and this RN to assess incision. Incision appears intact without sign of infection. 2-3 areas with scant sanguinous drainage. Surgifoam applied in weeping areas and steri strips to 2 areas that appeared open. Sutures intact. xeroform to cover the reamaining incision and gauze wrapped, placed back in cast splint and new roland wraps applied. Pt tolerated well.
--- NOTE | 2022-06-20 16:57 | ED_ITS ---
HPI - Wound/Laceration General Chief Complaint: Wound/Laceration Stated Complaint: left arm SX 06/12/22-oozing from incision Time Seen by Provider: 06/20/22 15:56 History of Present Illness HPI narrative: Patient is a 62-year-old female who is post up olecranon internal fixation on 06/12/2022 presenting today with drainage. She feels like there is seepage inside her splint. She denies any fever chills no numbness tingling or weakness. She is seen evaluated in the triage room. Related Data Home Medications Medication Instructions Recorded Confirmed albuterol sulfate [Ventolin HFA] 1 puff inhalation DAILY 02/07/22 06/19/22 aspirin 81 mg tablet,delayed 81 mg PO DAILY 02/07/22 06/19/22 release (Adult Low Dose Aspirin) levothyroxine 50 mcg capsule 50 mcg PO DAILY 02/07/22 06/19/22 lisinopril 5 mg tablet 5 mg PO BID 02/07/22 06/19/22 sertraline 100 mg tablet 100 mg PO DAILY 02/07/22 06/19/22 tiotropium bromide [Spiriva 1 puff inhalation DAILY 02/07/22 06/19/22 Respimat] magnesium hydroxide 400 mg/5 mL 30 ml PO BEDTIME PRN Constipation 05/29/22 06/19/22 oral suspension (Milk of Magnesia) Previous Rx's Medication Instructions Recorded acetaminophen 325 mg capsule 650 mg PO QID PRN pain #60 caps 02/21/22 (Tylenol) ondansetron 4 mg disintegrating 4 mg PO Q6H PRN Nausea And 03/25/22 tablet Vomiting #60 tabs multivitamin with folic acid 400 1 tab PO DAILY #30 tabs 04/18/22 mcg tablet (Tab-A-Bo) oxycodone 10 mg tablet 10 mg PO Q3HR PRN Pain, Moderate 04/18/22 (4-6) #20 tabs sennosides 8.6 mg tablet (senna) 17.2 mg PO BEDTIME #30 tabs 04/18/22 zolpidem 5 mg tablet 5 mg PO BEDTIME PRN Sleep #10 tabs 04/18/22 hydroxyzine pamoate 25 mg capsule 25 mg PO TID-QID PRN spasms #60 06/12/22 (Vistaril) caps oxycodone-acetaminophen 5 mg-325 2 tab PO Q4-6H PRN pain #60 tabs 06/12/22 mg tablet (Percocet) Allergies Allergy/AdvReac Type Severity Reaction Status Date / Time No Known Drug Allergies Allergy Verified 06/12/22 09:40 Review of Systems Review of Systems ROS Unobtainable: All systems reviewed & are unremarkable except as noted in HPI and below Patient History Medical History Anxiety Broken arm COPD (chronic obstructive pulmonary disease) Depression HTN (hypertension) Hypothyroidism Lumbar radiculopathy Pulmonary nodules (~2014) Raynaud's phenomenon Thalassemia minor Surgical History History of open reduction and internal fixation (ORIF) procedure (04/15/22) Hx of right breast biopsy (01/14/22) Hx of right mastectomy (02/21/22) S/P hernia surgery Family History Mother Hypertension Sister Hypertension Breast cancer Social History marital status: unmarried,single household members: spouse and none lives independently: Yes occupational status: disabled Smoking Status: Current every day smoker alcohol intake: current substance use type: does not use Smoking Status: Current every day smoker alcohol intake frequency: a few times a month Substance Use Type: marijuana Exam Initial Vital Signs Initial Vital Signs: Vital Signs Temperature 97.7 F 06/20/22 14:12 Pulse Rate 76 06/20/22 14:12 Respiratory Rate 16 06/20/22 14:12 Blood Pressure 218/103 H 06/20/22 14:12 Pulse Oximetry 98 06/20/22 14:12 Oxygen Delivery Method Room Air 06/20/22 14:12 GENERAL: Alert pleasant well-appearing 62-year-old female CARDIOVASCULAR: peripheral pulses in tact, cap refill <2 sec RESPIRATORY: No respiratory distress, speaks in full sentences without difficulty EXTREMITIES: Normal range of motion, no clubbing or edema. Neurovascularly intact NEUROLOGICAL: Cranial nerves II through XII grossly intact. Normal gait and speech. SKIN: Incision site is not erythematous there is some small drainage and a couple spots Steri-Strips and Surgicel placed. Postoperative contusion and changes noted Course Vital Signs Vital signs: Vital Signs - 8 hr 06/20/22 14:12 Temperature 97.7 F Pulse Rate 76 Respiratory Rate 16 Blood Pressure 218/103 H Pulse Oximetry 98 Oxygen Delivery Method Room Air MDM - Wound/Laceration MDM Narrative Medical decision making narrative: Patient is postop day number 7 or 8 she is still having some drainage Steri- Strips, surgery sounds Xeroform were placed there is no real sign of infection no erythema no fever. Discussed case with Dr. Rausch on-call orthopedic who also did her surgery he agrees with plan and outpatient follow-up. Discharge Plan Departure Patient Disposition: Home Clinical Impression: Post-op bleeding Prescriptions: No Action levothyroxine 50 mcg capsule 50 mcg PO DAILY lisinopril 5 mg tablet 5 mg PO BID sertraline 100 mg tablet 100 mg PO DAILY aspirin [Adult Low Dose Aspirin] 81 mg tablet,delayed release (DR/EC) 81 mg PO DAILY albuterol sulfate [Ventolin HFA] 1 puff inhalation DAILY tiotropium bromide [Spiriva Respimat] 1 puff inhalation DAILY acetaminophen [Tylenol] 325 mg capsule 650 mg PO QID PRN (Reason: pain) Qty: 60 0RF sennosides [senna] 8.6 mg Tablet 17.2 mg PO BEDTIME Qty: 30 0RF zolpidem 5 mg Tablet 5 mg PO BEDTIME PRN (Reason: Sleep) Qty: 10 0RF oxycodone 10 mg Tablet 10 mg PO Q3HR PRN (Reason: Pain, Moderate (4-6)) Qty: 20 0RF multivitamin with folic acid [Tab-A-Bo] 400 mcg Tablet 1 tab PO DAILY Qty: 30 0RF oxycodone-acetaminophen [Percocet] 5-325 mg tablet 2 tab PO Q4-6H PRN (Reason: pain) Qty: 60 0RF hydroxyzine pamoate [Vistaril] 25 mg capsule 25 mg PO TID-QID PRN (Reason: spasms) Qty: 60 0RF ondansetron 4 mg Tablet,Disintegrating 4 mg PO Q6H PRN (Reason: Nausea And Vomiting) Qty: 60 1RF Rx Instructions: take 1 tab by mouth and let dissolve as needed every 6 hrs for nausea and vomiting magnesium hydroxide [Milk of Magnesia] 400 mg/5 mL suspension 30 ml PO BEDTIME PRN (Reason: Constipation) Referrals: Paulette Montgomery MD [Primary Care Provider] - Stand Alone Forms: Patient Portal/API
== END 2022-06-20 20:26 | disposition home or self-care (01) ==
PROVIDERS: Emergency Provider Emergency Medicine; PCP Family Medicine
DX: T81.31XA Disruption of external operation (surgical) wound, not elsewhere classified, initial encounter (principal)
CPT/HCPCS: 99281

== ENCOUNTER → 2022-08-11 08:55 | Outpatient (CLI) | payer MEDICARE, MEDICAID, SELFPAY ==
[2022-04-15 02:30] VITALS: BMI 21.1
--- NOTE | 2022-08-11 | DI.CT.S_ITS ---
PROCEDURE: CT CHEST ABD PEL W CON INDICATIONS: Breast CANCER TECHNIQUE: After the administration of oral and intravenous contrast, axial sections acquired from the supraclavicular neck to the pubic symphysis. Coronal and sagittal reformats were performed. For radiation dose reduction, the following was used: automated exposure control, adjustment of mA and/or kV according to patient size. COMPARISON: [facility], CT, CT CHEST ABD PEL W CON, 02/12/2022, 12:03. Chest CT 05/20/2022 FINDINGS: Image quality: Excellent. CHEST: Lower Neck: No enlarged lymph nodes. Thyroid: Within normal limits. Axillae: No enlarged lymph nodes. Prior right axillary lymph node dissection. Chest Wall: Prior right mastectomy. Lungs and Airways: No consolidation or suspicious nodules. Pleura: No pneumothorax or pleural effusions. Heart: Heart size is normal. No pericardial effusion. Marked coronary artery calcifications for age. Thoracic Vessels: The aorta and pulmonary arteries demonstrate normal size. Mediastinum and Lola: No enlarged lymph nodes. Esophagus: No wall thickening. No hiatal hernia. ABDOMEN: Liver: Stable hypoattenuating lesion along the anterior margin of segment 2/3, consistent with a benign cyst. Gallbladder: Unremarkable. Biliary ducts: Unremarkable. Pancreas: Unremarkable. Spleen: Unremarkable. Adrenal Glands: Stable 2.1 cm left adrenal node, favoring a benign etiology. Kidneys and Ureters: Unremarkable. Stomach and Bowel: Stomach, small bowel loops, and colon are unremarkable. Colonic diverticulosis without evidence of diverticulitis. Peritoneum: No abnormal intraperitoneal fluid. No free air. Ventral Wall: No hernia. Abdominal Nodes: No retroperitoneal or mesenteric adenopathy by size criteria. Vessels: Aorta and inferior vena cava are normal in size. PELVIS: Pelvic Organs: Unremarkable. Bladder: Unremarkable. Pelvic Nodes: No enlarged lymph nodes. Miscellaneous: No inguinal hernias are seen. Similar fat stranding adjacent to the left common femoral vein (series 2, image 104). Bones: S shaped scoliosis of the thoracolumbar spine. IMPRESSION: 1. Prior right mastectomy and lymph node dissection, without evidence of recurrence. 2. Stable fat stranding adjacent to the left common femoral vein, presumably benign given stability. 3. Marked coronary artery calcifications for age. Consider cardiology referral. Dictated by: Dennis Haddad M.D. on 08/11/2022 at 11:56 Approved by: Dennis Haddad M.D. on 08/11/2022 at 12:07
--- NOTE | 2022-08-11 08:56 | DI.NM.S_ITS ---
PROCEDURE: [place] BONE SCAN WHOLE BODY RADIOPHARMACEUTICAL: 20.7 mCi Tc-99m MDP IV. INDICATIONS: breast cancer TECHNIQUE: Delayed whole-body scintigrams were obtained approximately 3-4 hours after intravenous injection of radiotracer. Anterior and posterior views were acquired from vertex to feet. COMPARISON: [place], [place] BONE SCAN WHOLE BODY, 02/14/2022, 10:50. [facility], CT, CT CHEST ABD PEL W CON, 08/11/2022, 10:15. [place] BONE SCAN WHOLE BODY, 06/04/2022, 11:54. FINDINGS: No lesions are identified in skull, sternum, clavicles, scapulae, ribs, bony pelvis, and visualized shafts of the long bones. Moderate dextroscoliosis. There are foci of increased uptake in cervical, thoracic and lumbar spine most likely secondary to degenerative disc and facet disease; early metastasis to spine could be obscured by degenerative changes. There are foci of increased periarticular activity most pronounced in left wrist, compatible with degenerative/arthritic changes. Left hip arthroplasty. IMPRESSION: No definitive scintigraphic findings to suggest osseous metastasis. Dictated by: Liss Patterson M.D. on 08/11/2022 at 14:05 Approved by: Liss Patterson M.D. on 08/11/2022 at 14:09
[2022-08-11 09:36] LABS: Add Manual Diff / Slide Review NO; Basophils Absolute Auto 100 /uL (0-100); Basophils Percent Auto 0.6 % (0-2); Eosinophils Absolute Auto 400 /uL (0-450); Eosinophils Percent Auto 4.7 % (2-4); Hematocrit 36.7 % (36-46); Hemoglobin 11.6 g/dL (12.0-16.0); Lymphocytes Absolute Auto 2800 /uL (1100-4500); Lymphocytes Percent Auto 32.6 % (25-40); Mean Corpuscular HGB Conc 31.7 % (30-36); Mean Corpuscular Hemoglobin 20.4 PG (26-34); Mean Corpuscular Volume 64.5 fL (80-100); Monocytes Absolute Auto 500 /uL (0-900); Neutrophils Absolute Auto 4800 /uL (1500-7000); Neutrophils Percent Auto 56.1 % (50-75); Platelet Count 315 X10^3/uL (150-400); Red Cell Distribution Width 14.5 % (11.6-14.8); White Blood Cell Count 8.6 X10^3/uL (4.5-11.0)
[2022-08-11 09:49] LABS: Alanine Aminotransferase 16 IU/L (<35); Albumin Globulin Ratio 1.4 (1.0-2.8); Alkaline Phosphatase 78 U/L (38-126); Aspartate Aminotransferase 23 IU/L (14-36); BUN Creatinine Ratio 23.2 (6-22); Bilirubin Total 0.6 mg/dL (0.2-1.3); Blood Urea Nitrogen 13 mg/dL (7-17); Calcium 10.1 mg/dL (8.4-10.2); Carbon Dioxide 27 mmol/L (22-32); Chloride 101 mmol/L (98-107); Estimated Glomerular Filt Rate > 60 mL/min (>60); Globulin 3.5 g/dL (1.7-4.1); Glucose 90 mg/dL (80-110); HEMOLYSIS < 15 (0-50); Potassium 4.1 mmol/L (3.4-5.1); Sodium 140 mmol/L (137-145); Total Protein 8.5 g/dL (6.3-8.2)
== END ==
PROVIDERS: PCP Family Medicine; Referring Provider Internal Medicine Hematology & Oncology; Visit Provider Internal Medicine Hematology & Oncology
DX: C50.911 Malignant neoplasm of unspecified site of right female breast (principal); I25.10 Atherosclerotic heart disease of native coronary artery without angina pectoris; E27.9 Disorder of adrenal gland, unspecified; K57.90 Diverticulosis of intestine, part unspecified, without perforation or abscess without bleeding; M41.9 Scoliosis, unspecified; Z90.11 Acquired absence of right breast and nipple
CPT/HCPCS: 36415; 71260; 74177; 78306; 80053; 85025; A9503; Q9967

== ENCOUNTER 2023-03-29 12:02 | Emergency (ER) | payer MEDICARE, MEDICAID, SELFPAY ==
[2022-04-15 02:30] VITALS: BMI 21.1
[2023-03-29] VITALS (24 sets, daily range): BP systolic 129–172; BP diastolic 60–84; PULSE 70–108; RESP 15–28; TEMP 36.9; O2SAT 94–99; BMI 28.3
--- NOTE | 2023-03-29 12:35 | ED.EXTPRO ---
HPI - Extremity Problem General Chief complaint: Extremity Problem,Nontraumatic Stated complaint: post lt elbow surg/elbow pain Time Seen by Provider: 03/29/23 12:19 Source: patient and family Mode of arrival: Ambulatory Limitations: no limitations History of Present Illness HPI Narrative: 62-year-old female with history of COPD, hypertension, dyslipidemia, thalassemia minor and Raynaud's with olecranon internal fixation on 06/12/2022 presenting with complaint of a nodule over the olecranon that has been present for several weeks to months occasionally drains a small amount of bloody drainage. She is had some increased pain at the elbow with some numbness tingling into her 4th and 5th fingers over the past week she states pain is increased with particular movement. She can take it through her full range of motion she has not appreciate any new swelling, redness or skin changes. She also notes she has left lower extremity swelling ankle pain which has been present for some time but gotten significantly worse and now the swelling has spread up to her thigh. She was concern for possible clot. She has not had any in the past. Patient notes she has COPD she has shortness of breath she states it is a little bit worse than her typical but describes it mostly as baseline. She denies chest pain pressure. She denies any fevers but has felt chilled. Diaphoresis. No nausea, no vomiting. Denies any major acute changes to bowel movements. She is chronic urinary incontinence with no new changes. Patient has been seen by her provider sounds like they have cultured the site of her elbow in the past. She did have postop bleeding and seepage and was seen on 06/20/2022 when she had her splint removed and replaced. No known drug allergies. Patient states no prior cardiac or lung surgeries. She does smoke daily, occasional alcohol uses marijuana no illicit drugs. Paulette Montgomery is her primary care. Dr. Rausch was her orthopedic surgeon. Related Data Home Medications Medication Instructions Recorded Confirmed albuterol sulfate [Ventolin HFA] 1 puff inhalation DAILY 02/07/22 11/06/22 aspirin 81 mg tablet,delayed 81 mg PO DAILY 02/07/22 11/06/22 release (Adult Low Dose Aspirin) levothyroxine 50 mcg capsule 50 mcg PO DAILY 02/07/22 11/06/22 lisinopril 5 mg tablet 5 mg PO BID 02/07/22 11/06/22 sertraline 100 mg tablet 100 mg PO DAILY 02/07/22 11/06/22 tiotropium bromide [Spiriva 1 puff inhalation DAILY 02/07/22 11/06/22 Respimat] magnesium hydroxide 400 mg/5 mL 30 ml PO BEDTIME PRN Constipation 05/29/22 11/06/22 oral suspension (Milk of Magnesia) trazodone 100 mg tablet 100 mg PO BEDTIME 08/07/22 11/06/22 Previous Rx's Medication Instructions Recorded acetaminophen 325 mg capsule 650 mg (2 x 325 mg) PO QID PRN 02/21/22 (Tylenol) pain #60 caps ondansetron 4 mg disintegrating 4 mg PO Q6H PRN Nausea And 03/25/22 tablet Vomiting #60 tabs sennosides 8.6 mg tablet (senna) 17.2 mg (2 x 8.6 mg) PO BEDTIME 04/18/22 #30 tabs ondansetron 8 mg disintegrating 8 mg PO Q8H #30 tabs 06/26/22 tablet anastrozole 1 mg tablet 1 mg PO DAILY breast cancer #90 08/07/22 tabs abemaciclib 150 mg tablet 150 mg PO BID Breast cancer #60 11/06/22 (Verzenio) tabs clindamycin HCl 300 mg capsule 300 mg PO Q6H 7 days #28 caps 03/29/23 hydrocodone 5 mg-acetaminophen 325 1 tab PO Q6H PRN pain #10 tabs 03/29/23 mg tablet Allergies Allergy/AdvReac Type Severity Reaction Status Date / Time No Known Drug Allergies Allergy Verified 06/12/22 09:40 Review of Systems Review of Systems ROS Unobtainable: All systems reviewed & are unremarkable except as noted in HPI and below Patient History Medical History Thalassemia minor Raynaud's phenomenon Pulmonary nodules (~2014) Lumbar radiculopathy Anxiety Depression HTN (hypertension) Hypothyroidism Broken arm COPD (chronic obstructive pulmonary disease) Surgical History History of open reduction and internal fixation (ORIF) procedure (06/12/22) History of open reduction and internal fixation (ORIF) procedure (04/15/22) Hx of right mastectomy (02/21/22) Hx of right breast biopsy (01/14/22) S/P hernia surgery Family History Mother Hypertension Sister Hypertension Breast cancer Social History marital status: unmarried,single household members: spouse and none lives independently: Yes occupational status: disabled Smoking Status: Current some day smoker alcohol intake: current substance use type: does not use Smoking Status: Current some day smoker tobacco type: vaping alcohol intake frequency: a few times a month Substance Use Type: marijuana Exam Narrative Exam Narrative: GEN: well nourished, well appearing female, alert and oriented x 3, patient appears to be in mild distress. HEENT: Atraumatic, pupils are equal round reactive to light, extraocular movements are intact, nares are clear, TMs are clear with no fluid, there is no conjunctival pallor. Throat is clear without any exudates, erythema, tonsillar enlargement or uvular deviation HEART: Regular rate and rhythm without murmur, clicks, rubs. pulses are equal in upper and lower extremities LUNGS:Lungs clear to auscultation, no wheezes, rales, crackles, chest moves symmetrically, no tachypnea or accessory muscles ABD:bowel sounds normal, soft, non-tender, no guarding, rebound, rigidity, no masses noted, no hepatosplenomegaly :No CVA tenderness MSCL: Non-tender, no muscle atrophy, muscles strength 5/5 upper and lower extremities, full range of motion, patient had swelling 2+ in the left lower extremity radiating up towards the thigh with erythema, warmth. Patient's only very mildly tender. Does have palpable pulses. Sensation throughout. Patient's left elbow she has a small nodule on the tip of the olecranon there is a scab over the site no active drainage there is no warmth, erythema or swelling of the elbow. Patient has full range of motion. No other bony tenderness. The nodule is slightly tender not able to express any drainage. 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 5/5 muscle strength of upper extremities otherwise with push-pull. Normal flexion-extension, adduction and abduction hand wrist and elbow. NEURO:CN 2-12 intact, sensation normal. SKIN: No rash, skin breakdown or lacerations noted. see above. Initial Vital Signs Initial Vital Signs: Vital Signs Temperature 98.4 F 03/29/23 12:05 Pulse Rate 108 H 03/29/23 12:05 Respiratory Rate 24 03/29/23 12:05 Blood Pressure 172/78 H 03/29/23 12:05 Pulse Oximetry 99 03/29/23 12:05 Oxygen Delivery Method Room Air 03/29/23 12:05 Course Orders Ordered: Discontinued Medications Clindamycin Phosphate (Cleocin) 900 mg in 50 mls @ 50 mls/hr IV NOW ONE Stop: 03/29/23 15:38 Last Admin: 03/29/23 15:07 Dose: Not Given Documented By: ABHI Morphine Sulfate (Morphine 4 Mg/Ml Inj) 4 mg IV NOW ONE Stop: 03/29/23 12:44 Last Admin: 03/29/23 13:15 Dose: 4 mg Documented By: ABHI Vital Signs Vital signs: Vital Signs - 8 hr 03/29/23 12:05 03/29/23 12:18 03/29/23 12:30 Temperature 98.4 F Pulse Rate 108 H 97 H 86 Respiratory Rate 24 25 H 21 Blood Pressure 172/78 H Pulse Oximetry 99 98 99 Oxygen Delivery Method Room Air 03/29/23 12:30 03/29/23 13:12 03/29/23 13:12 Temperature Pulse Rate 78 Respiratory Rate Blood Pressure 129/62 137/64 Pulse Oximetry 98 Oxygen Delivery Method 03/29/23 13:15 03/29/23 13:15 03/29/23 13:20 Temperature Pulse Rate 75 85 Respiratory Rate 19 22 Blood Pressure 134/60 Pulse Oximetry 99 99 Oxygen Delivery Method 03/29/23 13:20 03/29/23 13:25 03/29/23 13:25 Temperature Pulse Rate 82 Respiratory Rate 22 Blood Pressure 157/72 H 164/73 H Pulse Oximetry 96 Oxygen Delivery Method 03/29/23 13:30 03/29/23 13:30 03/29/23 13:35 Temperature Pulse Rate 77 78 Respiratory Rate 23 21 Blood Pressure 136/73 Pulse Oximetry 97 96 Oxygen Delivery Method 03/29/23 13:35 03/29/23 13:40 03/29/23 13:40 Temperature Pulse Rate 78 Respiratory Rate Blood Pressure 141/83 H 142/75 H Pulse Oximetry 96 Oxygen Delivery Method 03/29/23 13:45 03/29/23 13:45 03/29/23 13:50 Temperature Pulse Rate 77 74 Respiratory Rate 17 Blood Pressure 142/71 H Pulse Oximetry 96 97 Oxygen Delivery Method 03/29/23 13:50 03/29/23 13:55 03/29/23 13:55 Temperature Pulse Rate 76 Respiratory Rate 18 Blood Pressure 141/78 H 140/74 Pulse Oximetry 96 Oxygen Delivery Method 03/29/23 14:00 03/29/23 14:00 03/29/23 14:05 Temperature Pulse Rate 71 71 Respiratory Rate 17 17 Blood Pressure 139/72 Pulse Oximetry 97 98 Oxygen Delivery Method 03/29/23 14:05 03/29/23 14:10 03/29/23 14:10 Temperature Pulse Rate 72 Respiratory Rate 19 Blood Pressure 130/63 138/70 Pulse Oximetry 96 Oxygen Delivery Method 03/29/23 14:15 03/29/23 14:15 03/29/23 14:20 Temperature Pulse Rate 78 Respiratory Rate 20 Blood Pressure 138/67 149/70 H Pulse Oximetry 97 Oxygen Delivery Method 03/29/23 14:20 03/29/23 14:25 03/29/23 14:25 Temperature Pulse Rate 72 70 Respiratory Rate 15 18 Blood Pressure 144/64 H Pulse Oximetry 98 97 Oxygen Delivery Method 03/29/23 14:30 03/29/23 14:31 03/29/23 14:31 Temperature Pulse Rate 75 85 Respiratory Rate 24 28 H Blood Pressure 158/72 H Pulse Oximetry 97 98 Oxygen Delivery Method 03/29/23 14:59 03/29/23 14:59 03/29/23 15:00 Temperature Pulse Rate 96 H 93 H Respiratory Rate 25 H 26 H Blood Pressure 145/84 H Pulse Oximetry 95 94 Oxygen Delivery Method MDM - Extremity (Nontraumatic) Lab Data 03/29/23 13:10 03/29/23 13:10 Labs: Lab Results 03/29/23 Range/Units 13:10 WBC 5.4 (4.5-11.0) X10^3/uL RBC 5.05 (4.0-5.2) X10^6/uL Hgb 10.9 L (12.0-16.0) g/dL Hct 33.6 L (36-46) % MCV 66.7 L (80-100) fL MCH 21.7 L (26-34) PG MCHC 32.5 (30-36) % RDW 18.1 H (11.6-14.8) % Plt Count 334 (150-400) X10^3/uL Neut % (Auto) 54.9 (50-75) % Lymph % (Auto) 27.8 (25-40) % [place] % (Auto) 9.9 (3-14) % Eos % (Auto) 6.3 H (2-4) % Baso % (Auto) 1.1 (0-2) % Neut # (Auto) 2900 (0191-1388) /uL Lymph # (Auto) 1500 (1317-6305) /uL [place] # (Auto) 500 (0-900) /uL Eos # (Auto) 300 (0-450) /uL Baso # (Auto) 100 (0-100) /uL RBC Morphology See below Anisocytosis 1+ H Microcytosis 1+ H PT 11.8 (9.4-12.5) SECONDS INR 1.0 (0.9-1.3) APTT 32 (25.1-36.5) SECONDS Sodium 138 (137-145) mmol/L Potassium 4.5 (3.4-5.1) mmol/L Chloride 102 (98-107) mmol/L Carbon Dioxide 27 (22-32) mmol/L BUN 22 H (7-17) mg/dL Creatinine 0.86 (0.52-1.04) mg/dL Estimated GFR > 60 (>60) mL/min BUN/Creatinine Ratio 25.6 H (6-22) Glucose 101 (80-110) mg/dL Calcium 10.4 H (8.4-10.2) mg/dL Total Bilirubin 0.5 (0.2-1.3) mg/dL AST 29 (14-36) IU/L ALT 19 (<35) IU/L Alkaline Phosphatase 67 (38-126) U/L Total Creatine Kinase 62 (30-135) U/L Troponin I < 0.012 (0.01-0.034) ng/mL NT-Pro-B Natriuret Pep 147 H (<125) pg/mL Total Protein 8.5 H (6.3-8.2) g/dL Albumin 4.8 (3.5-5.0) g/dL Globulin 3.7 (1.7-4.1) g/dL Albumin/Globulin Ratio 1.3 (1.0-2.8) Lipase 118 (23-300) U/L Imaging Data Extremity x-ray #1: Radiologist's Impression: Close Elbow X-Ray (Signed) Cole Smith - 03/29/23 Chest X-Ray (Signed) Cole Smith - 03/29/23 Bone Scan Nuclear Medicine (Signed) Liss Patterson - 08/11/22 Chest/Abdomen/Pelvis CT (Signed) Dennis Haddad - 08/11/22 Bone Scan Nuclear Medicine (Signed) Liss Patterson - 06/04/[address] (Signed) John Corrales - 05/20/22 Hip X-Ray (Signed) Cox,Humera - 04/15/[address] (Signed) Cox,Humera - 04/14/22 Chest X-Ray (Signed) Cox,Humera - 04/14/[address] (Signed) Cox,Humera - 04/14/22 Hip X-Ray (Signed) Cox,Humera - 04/14/22 Elbow X-Ray (Signed) Cox,Humera - 04/14/22 Bone Scan Nuclear Medicine (Signed) Humera Cox - 02/14/22 Chest/Abdomen/Pelvis CT (Signed) Karena Brannon - 02/12/22 Mammogram Diagnostic (Signed) Fabricio Grady - 01/14/22 Breast Biopsy Ultrasound (Signed) Fabricio Grady - 01/14/22 Breast Axilla Core Biopsy US (Signed) Fabricio Grady - 01/14/22 Mammogram Diagnostic (Signed) John Corrales - 12/13/21 Breast Ultrasound (Signed) John Corrales - 12/13/[address] [address] XRay Report Signed Patient: Nedra Mccullough MR#: [id number] : 1960 Acct:[id number] Age/Sex: 62 / F Date of Service: 03/29/23 Loc: ED Accession Number: [id number] Procedure: XR elbow RT min 3V Ordering Provider: Mank,Nadia C D.O. PROCEDURE: XR ELBOW LT MIN 3V INDICATIONS: Not provided TECHNIQUE: 3 views of the elbow were acquired. COMPARISON: [facility], , XR ELBOW 1 OR 2 VIEWS LEFT, 08/11/2022, 13:57. FINDINGS: Bones: Plate and screw fixation with K-wire support of a comminuted olecranon fracture in near anatomic alignment. Tiny osseous fragment along the medial epicondyle. No suspicious bony lesions. Soft tissues: No elbow joint effusion. No suspicious soft tissue calcifications. IMPRESSION: Plate and screw fixation of the olecranon without evidence of hardware complication. Small osseous fragment along the inferior aspect of the medial epicondyle. Dictated by: Cole Smith M.D. on 03/29/2023 at 12:44 Approved by: Cole Smith M.D. on 03/29/2023 at 12:47 Chest x-ray: Radiologist's Impression: [address] [address] XRay Report Signed Patient: Nedra Mccullough MR#: [id number] : 1960 Acct:[id number] Age/Sex: 62 / F Date of Service: 03/29/23 Loc: ED Accession Number: [id number] Procedure: XR chest 1V Ordering Provider: Nadia Rush D.O. PROCEDURE: XR CHEST 1V INDICATIONS: sob, swelling leg, hx copd TECHNIQUE: One view of the chest was acquired. COMPARISON: None. FINDINGS: Surgical changes and devices: Surgical clips in the right axilla. Lungs and pleura: Lungs are clear. No pleural effusions or pneumothorax. Mediastinum: Mediastinal contours appear normal. Heart size is normal. Bones and chest wall: No suspicious bony lesions. Overlying soft tissues appear unremarkable. [place] right curvature of the thoracic spine. IMPRESSION: No acute cardiopulmonary abnormality is seen. Dictated by: Cole Smith M.D. on 03/29/2023 at 12:43 Approved by: Cole Smith M.D. on 03/29/2023 at 12:44 US - DVT: Radiologist's Impression: [address] [address] Ultrasound Report Signed Patient: Nedra Mccullough MR#: [id number] : 1960 Acct:[id number] Age/Sex: 62 / F Date of Service: 03/29/23 Loc: ED Accession Number: [id number] Procedure: perip venous low extrem lt Ordering Provider: Nadia Rush D.O. PROCEDURE: PERIPH VENOUS LOW EXTREM LT INDICATIONS: red, swollen TECHNIQUE: Real-time imaging, as well as color and pulse Doppler interrogation, were performed of the lower extremity deep veins from the inguinal ligament to the popliteal fossa, with documentation of the visualized calf veins. COMPARISON: None. FINDINGS: The common femoral, femoral, popliteal, and the visualized calf veins are normally compressible, and free of intraluminal thrombus. Color and pulse Doppler demonstrate normal phasic intraluminal flow. There is normal augmentation response to distal compression maneuver. There is moderate edema of limits visualization of the distal peroneal and posterior tibialis veins. IMPRESSION: 1. No findings of lower extremity deep venous thrombosis. 2. Lower extremity edema Dictated by: Cole Smith M.D. on 03/29/2023 at 13:43 Approved by: Cole Smith M.D. on 03/29/2023 at 13:44 ECG Data Attestation EKG: I personally reviewed and interpreted this ECG as follows: Prior ECG tracings: available for review Interpretation: Sinus rhythm rate of 72 IN 136 QRS 86 QTC 440. Patient has prior from 04/15/2022 which appears similar. Acute ST changes noted. [facility] Narrative Medical decision making narrative: 62-year-old female with left lower extremity swelling, redness and warmth patient also has right elbow pain that has been longstanding with a small nodule that drains but does not appear infected. She describes draining small amount of serosanguineous fluid. She notes increased pain on x-ray there is a small fragments at the inferior aspect of the medial epicondyle but no other acute changes. She has noticed some paresthesias of the 4th and 5th fingers. Patient was referred back to follow up with Orthopedic surgery patient does not appear to have any infection at this time or require antibiotics for her elbow. Patient has chronic shortness of breath but was slightly increased with plan for DVT ultrasound chest x-ray, EKG and labs were obtained. Workup shows Normal white count, hemoglobin of 10 with platelets 334 no leftward shift eosinophils are high. Coags are negative. CMP shows BUN 22 otherwise normal renal function electrolytes with a calcium at 10.4, LFTs are negative troponins negative with a BNP of 147. Chest x-ray shows no acute change. EKG shows sinus rhythm nonspecific change similar to prior from 04/15/2022 DVT ultrasound negative for DVT, does show edema most consistent with cellulitis. Patient does not appear to be septic, was going to give dose of IV antibiotic. But patient defers this and would prefer to start oral antibiotics and be discharged home now. Patient has swelling up to the knee but redness only extends up to the calf. Patient feels comfortable with discharge home we discussed return precautions patient's leg was marked discussed if moving more than cm or 2 beyond that ovidio to return to the ED or other high-risk symptoms. Discharge Plan Departure Patient Disposition: Home Clinical Impression: Cellulitis of left leg, Elbow pain, right Instructions: DI for Cellulitis -- Adult Activity Restrictions/Additional Instructions: Follow-up with Dr. Rausch regarding your elbow. Please call the office to set up a follow up appointment. The hardware in your elbow appears to be in place but there is a small bone fragment on the inside of the medial epicondyle this could be causing some of your pain. The nodule or spot draining does not appear infected I would not started on antibiotic but share all of this with your orthopedic surgeon. Your workup does not show a DVT in her left lower extremity appears you have an infection or cellulitis in the skin of your leg. Take oral antibiotics until completed. Start these today. Take them until completed. You may take pain medication 1-2 tablets every 6 hours as needed for pain. This medication can make you sleepy do not drive, perform hazardous activities or make any major decisions while taking it. This medication will make you constipated please take a stool softener once to twice daily until stools are soft and regular. Prescription sent to [facility] in [place] Return to the ER for fevers, rapidly worsening redness, swelling, increasing pain, new numbness, tingling or weakness, new chest pain or shortness of breath or other new or concerning changes. Prescriptions: New clindamycin HCl 300 mg capsule 300 mg PO Q6H 7 Days Qty: 28 0RF hydrocodone-acetaminophen 5-325 mg tablet 1 tab PO Q6H PRN (Reason: pain) Qty: 10 0RF No Action levothyroxine 50 mcg capsule 50 mcg PO DAILY lisinopril 5 mg tablet 5 mg PO BID sertraline 100 mg tablet 100 mg PO DAILY aspirin [Adult Low Dose Aspirin] 81 mg tablet,delayed release (DR/EC) 81 mg PO DAILY albuterol sulfate [Ventolin HFA] 1 puff inhalation DAILY tiotropium bromide [Spiriva Respimat] 1 puff inhalation DAILY acetaminophen [Tylenol] 325 mg capsule 650 mg PO QID PRN (Reason: pain) Qty: 60 0RF sennosides [senna] 8.6 mg Tablet 17.2 mg PO BEDTIME Qty: 30 0RF ondansetron 4 mg Tablet,Disintegrating 4 mg PO Q6H PRN (Reason: Nausea And Vomiting) Qty: 60 1RF Rx Instructions: take 1 tab by mouth and let dissolve as needed every 6 hrs for nausea and vomiting magnesium hydroxide [Milk of Magnesia] 400 mg/5 mL suspension 30 ml PO BEDTIME PRN (Reason: Constipation) ondansetron 8 mg Tablet,Disintegrating 8 mg PO Q8H Qty: 30 0RF trazodone 100 mg Tablet 100 mg PO BEDTIME anastrozole 1 mg Tablet 1 mg PO DAILY Qty: 90 3RF Verzenio 150 mg Tablet 150 mg PO BID Qty: 60 11RF Referrals: Paulette Montgomery MD [Primary Care Provider] - Juan Rausch MD [Physician] - Stand Alone Forms: Patient Portal/API
--- NOTE | 2023-03-29 12:44 | DI.RAD.S_ITS ---
PROCEDURE: XR CHEST 1V INDICATIONS: sob, swelling leg, hx copd TECHNIQUE: One view of the chest was acquired. COMPARISON: None. FINDINGS: Surgical changes and devices: Surgical clips in the right axilla. Lungs and pleura: Lungs are clear. No pleural effusions or pneumothorax. Mediastinum: Mediastinal contours appear normal. Heart size is normal. Bones and chest wall: No suspicious bony lesions. Overlying soft tissues appear unremarkable. [place] right curvature of the thoracic spine. IMPRESSION: No acute cardiopulmonary abnormality is seen. Dictated by: Cole Smith M.D. on 03/29/2023 at 12:43 Approved by: Cole Smith M.D. on 03/29/2023 at 12:44
--- NOTE | 2023-03-29 12:44 | DI.US.S_ITS ---
PROCEDURE: US PERIPH VENOUS LOW EXTREM LT INDICATIONS: red, swollen TECHNIQUE: Real-time imaging, as well as color and pulse Doppler interrogation, were performed of the lower extremity deep veins from the inguinal ligament to the popliteal fossa, with documentation of the visualized calf veins. COMPARISON: None. FINDINGS: The common femoral, femoral, popliteal, and the visualized calf veins are normally compressible, and free of intraluminal thrombus. Color and pulse Doppler demonstrate normal phasic intraluminal flow. There is normal augmentation response to distal compression maneuver. There is moderate edema of limits visualization of the distal peroneal and posterior tibialis veins. IMPRESSION: 1. No findings of lower extremity deep venous thrombosis. 2. Lower extremity edema Dictated by: Cole Smith M.D. on 03/29/2023 at 13:43 Approved by: Cole Smith M.D. on 03/29/2023 at 13:44
--- NOTE | 2023-03-29 12:45 | DI.RAD.S_ITS ---
PROCEDURE: XR ELBOW LT MIN 3V INDICATIONS: Not provided TECHNIQUE: 3 views of the elbow were acquired. COMPARISON: [facility], [place], XR ELBOW 1 OR 2 VIEWS LEFT, 08/11/2022, 13:57. FINDINGS: Bones: Plate and screw fixation with K-wire support of a comminuted olecranon fracture in near anatomic alignment. Tiny osseous fragment along the medial epicondyle. No suspicious bony lesions. Soft tissues: No elbow joint effusion. No suspicious soft tissue calcifications. IMPRESSION: Plate and screw fixation of the olecranon without evidence of hardware complication. Small osseous fragment along the inferior aspect of the medial epicondyle. Dictated by: Cole Smith M.D. on 03/29/2023 at 12:44 Approved by: Cole Smith M.D. on 03/29/2023 at 12:47
[2023-03-29] MEDS: MORPHINE 4 MG/ML INJ IV (13:15)
[2023-03-29 13:23] LABS: Add Manual Diff / Slide Review NO; Basophils Absolute Auto 100 /uL (0-100); Basophils Percent Auto 1.1 % (0-2); Eosinophils Absolute Auto 300 /uL (0-450); Eosinophils Percent Auto 6.3 % (2-4); Hematocrit 33.6 % (36-46); Hemoglobin 10.9 g/dL (12.0-16.0); Lymphocytes Absolute Auto 1500 /uL (1100-4500); Lymphocytes Percent Auto 27.8 % (25-40); Mean Corpuscular HGB Conc 32.5 % (30-36); Mean Corpuscular Hemoglobin 21.7 PG (26-34); Mean Corpuscular Volume 66.7 fL (80-100); Monocytes Absolute Auto 500 /uL (0-900); Monocytes Percent Auto 9.9 % (3-14); Neutrophils Absolute Auto 2900 /uL (1500-7000); Neutrophils Percent Auto 54.9 % (50-75); Platelet Count 334 X10^3/uL (150-400); Red Blood Cell Count 5.05 X10^6/uL (4.0-5.2); Red Cell Distribution Width 18.1 % (11.6-14.8); White Blood Cell Count 5.4 X10^3/uL (4.5-11.0)
[2023-03-29 13:31] LABS: Prothrombin Time 11.8 SECONDS (9.4-12.5)
[2023-03-29 13:34] LABS: PTT Partial Thromboplastin Tim 32 SECONDS (25.1-36.5)
[2023-03-29 13:36] LABS: Alanine Aminotransferase 19 IU/L (<35); Albumin 4.8 g/dL (3.5-5.0); Albumin Globulin Ratio 1.3 (1.0-2.8); Alkaline Phosphatase 67 U/L (38-126); Aspartate Aminotransferase 29 IU/L (14-36); BUN Creatinine Ratio 25.6 (6-22); Bilirubin Total 0.5 mg/dL (0.2-1.3); Blood Urea Nitrogen 22 mg/dL (7-17); Calcium 10.4 mg/dL (8.4-10.2); Carbon Dioxide 27 mmol/L (22-32); Chloride 102 mmol/L (98-107); Creatine Kinase 62 U/L (30-135); Estimated Glomerular Filt Rate > 60 mL/min (>60); Globulin 3.7 g/dL (1.7-4.1); Glucose 101 mg/dL (80-110); HEMOLYSIS < 15 (0-50); Lipase 118 U/L (23-300); Potassium 4.5 mmol/L (3.4-5.1); Sodium 138 mmol/L (137-145); Total Protein 8.5 g/dL (6.3-8.2)
[2023-03-29 13:47] LABS: NT-proBNP (BNP-Adult 18+) 147 pg/mL (<125); Troponin I < 0.012 ng/mL (0.01-0.034)
[2023-03-29 14:13] LABS: Anisocytosis 1+; Microcytosis 1+
== END 2023-03-29 15:16 | disposition home or self-care (01) ==
PROVIDERS: Emergency Provider Emergency Medicine; PCP Family Medicine
DX: M25.521 Pain in right elbow (principal); L03.116 Cellulitis of left lower limb; I10 Essential (primary) hypertension
CPT/HCPCS: 36415; 71045; 73080; 80053; 82550; 83690; 83880; 84484; 85025; 85610; 85730; 93005; 93010; 93971; 96374; 99284; J2270

== ENCOUNTER 2023-04-06 15:17 | Emergency (ER) | payer MEDICARE, MEDICAID, SELFPAY ==
[2022-04-15 02:30] VITALS: BMI 21.1
[2023-04-06 15:22] VITALS: BP 167/79; PULSE 95; RESP 18; TEMP 36.9; O2SAT 97; BMI 26.6
--- NOTE | 2023-04-06 15:30 | PC.NURSE ---
pt ambulatory to room in nad
--- NOTE | 2023-04-06 16:59 | PC.NURSE ---
pt out of room stating I'll just leave, pt encouraged to stay for Dr felipe. Dr. Balderas notified of pt's request to leave; Dr. Balderas reported to bedside for matteo.
--- NOTE | 2023-04-06 17:00 | ED.EXTPRO ---
HPI - Extremity Problem General Chief complaint: Extremity Problem,Nontraumatic Stated complaint: SWOLLEN LT LEG/ANTIBIOTIC HASNT HELPED Time Seen by Provider: 04/06/23 16:58 Mode of arrival: Ambulatory History of Present Illness HPI Narrative: Patient comes to the ED because of swollen left lower extremity. She was seen a week ago and at that time had 2 day history of left lower leg edema. At that point she had an ultrasound of her leg which showed no DVT. She has a history of breast cancer and she is on maintenance therapy now with oral medication for the next 5 years. She is had no symptoms of infection such as fever chills nausea vomiting or diarrhea. No chills or sweats the leg is somewhat itchy. No trauma to the leg that she is aware of. She completed her entire course of clindamycin but she says the leg is no different than it was last week. It is not any worse however. Related Data Home Medications Medication Instructions Recorded Confirmed albuterol sulfate [Ventolin HFA] 1 puff inhalation DAILY 02/07/22 11/06/22 aspirin 81 mg tablet,delayed 81 mg PO DAILY 02/07/22 11/06/22 release (Adult Low Dose Aspirin) levothyroxine 50 mcg capsule 50 mcg PO DAILY 02/07/22 11/06/22 lisinopril 5 mg tablet 5 mg PO BID 02/07/22 11/06/22 sertraline 100 mg tablet 100 mg PO DAILY 02/07/22 11/06/22 tiotropium bromide [Spiriva 1 puff inhalation DAILY 02/07/22 11/06/22 Respimat] magnesium hydroxide 400 mg/5 mL 30 ml PO BEDTIME PRN Constipation 05/29/22 11/06/22 oral suspension (Milk of Magnesia) trazodone 100 mg tablet 100 mg PO BEDTIME 08/07/22 11/06/22 Previous Rx's Medication Instructions Recorded acetaminophen 325 mg capsule 650 mg (2 x 325 mg) PO QID PRN 02/21/22 (Tylenol) pain #60 caps ondansetron 4 mg disintegrating 4 mg PO Q6H PRN Nausea And 03/25/22 tablet Vomiting #60 tabs sennosides 8.6 mg tablet (senna) 17.2 mg (2 x 8.6 mg) PO BEDTIME 04/18/22 #30 tabs ondansetron 8 mg disintegrating 8 mg PO Q8H #30 tabs 06/26/22 tablet anastrozole 1 mg tablet 1 mg PO DAILY breast cancer #90 08/07/22 tabs abemaciclib 150 mg tablet 150 mg PO BID Breast cancer #60 11/06/22 (Verzenio) tabs hydrocodone 5 mg-acetaminophen 325 1 tab PO Q6H PRN pain #10 tabs 03/29/23 mg tablet Allergies Allergy/AdvReac Type Severity Reaction Status Date / Time No Known Drug Allergies Allergy Verified 04/06/23 15:22 Patient History Medical History Thalassemia minor Raynaud's phenomenon Pulmonary nodules (~2014) Lumbar radiculopathy Anxiety Depression HTN (hypertension) Hypothyroidism Broken arm COPD (chronic obstructive pulmonary disease) Surgical History History of open reduction and internal fixation (ORIF) procedure (06/12/22) History of open reduction and internal fixation (ORIF) procedure (04/15/22) Hx of right mastectomy (02/21/22) Hx of right breast biopsy (01/14/22) S/P hernia surgery Family History Mother Hypertension Sister Hypertension Breast cancer Social History marital status: unmarried,single household members: spouse and none lives independently: Yes occupational status: disabled Smoking Status: Current some day smoker alcohol intake: current substance use type: does not use Smoking Status: Current some day smoker tobacco type: vaping alcohol intake frequency: a few times a month Substance Use Type: marijuana Exam Narrative Exam Narrative: GENERAL: Alert, cooperative and in no distress. HEAD: Atraumatic. Normocephalic. EYES: Sclera are clear without icterus. Extraocular movements are full. ENT: No rhinorrhea NECK: No visible abnormality RESPIRATORY: No respiratory distress GASTROINTESTINAL: Nondistended EXTREMITIES: No obvious trauma. Edema of the left lower extremity [id number]. It is mildly warm. Not really erythematous at all. No lesions or wounds. Normal dorsalis pedis pulse. NEURO: Nonfocal, normal speech SKIN: No rash or erythema of visible areas PSYCH: Normally oriented. Normal range of affect. Appropriate behavior Initial Vital Signs Initial Vital Signs: Vital Signs Temperature 98.4 F 04/06/23 15:22 Pulse Rate 95 H 04/06/23 15:22 Respiratory Rate 18 04/06/23 15:22 Blood Pressure 167/79 H 04/06/23 15:22 Pulse Oximetry 97 04/06/23 15:22 Oxygen Delivery Method Room Air 04/06/23 15:22 Course Vital Signs Vital signs: Vital Signs - 8 hr 04/06/23 15:22 Temperature 98.4 F Pulse Rate 95 H Respiratory Rate 18 Blood Pressure 167/79 H Pulse Oximetry 97 Oxygen Delivery Method Room Air MDM - Extremity (Nontraumatic) MDM Narrative Medical decision making narrative: It is not clear to me that cellulitis is the right diagnosis here. DVT was excluded last week and there have been no advancement of symptoms. She says she has had the leg in a dependent position most of the week not making any attempts to elevated so I think adding elevation to the treatment regime seems safe and appropriate for now. I do not think additional antibiotics are warranted. I recommend follow-up before the weekend to reassess if the swelling is not improved. Careful return precautions given. Discharge Plan Departure Patient Disposition: Home Clinical Impression: Edema of left lower extremity Activity Restrictions/Additional Instructions: It is not clear to me that there is a true infection of the skin in the left leg. Clearly you have edema in that location and I recommend elevation of the leg while sitting or lying down over the next few days. Follow-up with your cancer doctor on Thursday or your primary care doctor for reassessment. Return to the ED in the meantime if you develop chest pain, shortness of breath, fainting, swelling in your legs above the knee or high fever. Prescriptions: No Action levothyroxine 50 mcg capsule 50 mcg PO DAILY lisinopril 5 mg tablet 5 mg PO BID sertraline 100 mg tablet 100 mg PO DAILY aspirin [Adult Low Dose Aspirin] 81 mg tablet,delayed release (DR/EC) 81 mg PO DAILY albuterol sulfate [Ventolin HFA] 1 puff inhalation DAILY tiotropium bromide [Spiriva Respimat] 1 puff inhalation DAILY acetaminophen [Tylenol] 325 mg capsule 650 mg PO QID PRN (Reason: pain) Qty: 60 0RF sennosides [senna] 8.6 mg Tablet 17.2 mg PO BEDTIME Qty: 30 0RF ondansetron 4 mg Tablet,Disintegrating 4 mg PO Q6H PRN (Reason: Nausea And Vomiting) Qty: 60 1RF Rx Instructions: take 1 tab by mouth and let dissolve as needed every 6 hrs for nausea and vomiting magnesium hydroxide [Milk of Magnesia] 400 mg/5 mL suspension 30 ml PO BEDTIME PRN (Reason: Constipation) ondansetron 8 mg Tablet,Disintegrating 8 mg PO Q8H Qty: 30 0RF trazodone 100 mg Tablet 100 mg PO BEDTIME anastrozole 1 mg Tablet 1 mg PO DAILY Qty: 90 3RF Verzenio 150 mg Tablet 150 mg PO BID Qty: 60 11RF hydrocodone-acetaminophen 5-325 mg tablet 1 tab PO Q6H PRN (Reason: pain) Qty: 10 0RF Referrals: Paulette Montgomery MD [Primary Care Provider] - Stand Alone Forms: Patient Portal/API
== END 2023-04-06 17:03 | disposition home or self-care (01) ==
PROVIDERS: Emergency Provider Family Medicine Addiction Medicine; PCP Family Medicine
DX: R60.0 Localized edema (principal)
CPT/HCPCS: 99281

== ENCOUNTER → 2023-08-03 15:19 | Outpatient (CLI) | payer MEDICARE, MEDICAID, SELFPAY ==
[2022-04-15 02:30] VITALS: BMI 21.1
--- NOTE | 2023-08-03 15:31 | DI.RAD.S_ITS ---
PROCEDURE: XR TIBIA FUBULA RT 2V INDICATIONS: ABNORMAL POSITRON EMISSION TECHNIQUE: 2 views of the tibia and fibula were acquired. COMPARISON: None. FINDINGS: Bones: No fractures or dislocations. No suspicious bony lesions. Soft tissues: No suspicious soft tissue calcifications or masses. IMPRESSION: No acute bony abnormality. Approved by: Branden Granados M.D. on 08/03/2023 at 20:00
== END ==
PROVIDERS: PCP Family Medicine; Referring Provider Nurse Practitioner; Visit Provider Nurse Practitioner
DX: C50.811 Malignant neoplasm of overlapping sites of right female breast (principal); R94.8 Abnormal results of function studies of other organs and systems; Z17.0 Estrogen receptor positive status [ER+]
CPT/HCPCS: 73590

== ENCOUNTER 2023-11-11 14:18 | Emergency (ER) | payer MEDICARE, MEDICAID, SELFPAY ==
[2022-04-15 02:30] VITALS: BMI 21.1
[2023-11-11] VITALS (12 sets, daily range): BP systolic 144–187; BP diastolic 70–88; PULSE 70–105; RESP 16–23; TEMP 37.1; O2SAT 92–97; BMI 27.7
--- NOTE | 2023-11-11 14:35 | EKG_ITS ---
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
--- NOTE | 2023-11-11 14:59 | ED.HA ---
HPI - Headache General Chief Complaint: Headache Stated Complaint: HEADACHE, N/V/D Time Seen by Provider: 11/11/23 14:27 Mode of arrival: Ambulatory History of Present Illness HPI Narrative: 63-year-old female with history of breast cancer in remission, COPD, hypertension presents for headache, sinus congestion, nausea and vomiting. Symptoms ongoing for the last 3-4 days. Incidentally also noted small amount of blood in stool today, not on blood thinners. Patient states that her primary reason for coming to the emergency department was hoping that she could get antibiotics for a sinus infection Related Data Home Medications Medication Instructions Recorded Confirmed albuterol sulfate [Ventolin HFA] 1 puff inhalation DAILY 02/07/22 11/06/22 aspirin 81 mg tablet,delayed 81 mg PO DAILY 02/07/22 11/06/22 release (Adult Low Dose Aspirin) levothyroxine 50 mcg capsule 50 mcg PO DAILY 02/07/22 11/06/22 lisinopril 5 mg tablet 5 mg PO BID 02/07/22 11/06/22 sertraline 100 mg tablet 100 mg PO DAILY 02/07/22 11/06/22 tiotropium bromide [Spiriva 1 puff inhalation DAILY 02/07/22 11/06/22 Respimat] magnesium hydroxide 400 mg/5 mL 30 ml PO BEDTIME PRN Constipation 05/29/22 11/06/22 oral suspension (Milk of Magnesia) trazodone 100 mg tablet 100 mg PO BEDTIME 08/07/22 11/06/22 Previous Rx's Medication Instructions Recorded acetaminophen 325 mg capsule 650 mg (2 x 325 mg) PO QID PRN 02/21/22 (Tylenol) pain #60 caps ondansetron 4 mg disintegrating 4 mg PO Q6H PRN Nausea And 03/25/22 tablet Vomiting #60 tabs sennosides 8.6 mg tablet (senna) 17.2 mg (2 x 8.6 mg) PO BEDTIME 04/18/22 #30 tabs ondansetron 8 mg disintegrating 8 mg PO Q8H #30 tabs 06/26/22 tablet anastrozole 1 mg tablet 1 mg PO DAILY breast cancer #90 08/07/22 tabs abemaciclib 150 mg tablet 150 mg PO BID Breast cancer #60 11/06/22 (Verzenio) tabs hydrocodone 5 mg-acetaminophen 325 1 tab PO Q6H PRN pain #10 tabs 03/29/23 mg tablet ondansetron 4 mg disintegrating 4 mg PO Q8H PRN nausea and 11/11/23 tablet vomiting #30 tabs Allergies Allergy/AdvReac Type Severity Reaction Status Date / Time No Known Drug Allergies Allergy Verified 11/11/23 14:31 Patient History Medical History Thalassemia minor Raynaud's phenomenon Pulmonary nodules (~2014) Lumbar radiculopathy Anxiety Depression HTN (hypertension) Hypothyroidism Broken arm COPD (chronic obstructive pulmonary disease) Surgical History History of open reduction and internal fixation (ORIF) procedure (06/12/22) History of open reduction and internal fixation (ORIF) procedure (04/15/22) Hx of right mastectomy (02/21/22) Hx of right breast biopsy (01/14/22) S/P hernia surgery Family History Mother Hypertension Sister Hypertension Breast cancer Social History marital status: unmarried,single household members: spouse and none lives independently: Yes occupational status: disabled Smoking Status: Current some day smoker alcohol intake: current substance use type: does not use Smoking Status: Current some day smoker tobacco type: vaping alcohol intake frequency: a few times a month Substance Use Type: marijuana Exam Initial Vital Signs Initial Vital Signs: Vital Signs Pulse Rate 101 H 11/11/23 14:25 Respiratory Rate 19 11/11/23 14:25 Pulse Oximetry 97 11/11/23 14:25 Const: Awake, alert, no acute distress, appears chronically unwell HEENT: PERRLA, EOMI, maxillary sinus tenderness to palpation bilaterally Cardiac: Regular rate, regular rhythm RESP: unlabored, clear bilaterally, no wheezing GI: Soft, nontender, nondistended Skin: Warm, Dry, intact, no rashes Neuro: AO x3, CN II-XII grossly intact, moves all extremities Course Orders Ordered: Discontinued Medications Diphenhydramine HCl (Diphenhydramine 50 Mg/Ml Vial) 50 mg IV NOW ONE Stop: 11/11/23 14:59 Last Admin: 11/11/23 15:03 Dose: 50 mg Documented By: MIRIAM Sodium Chloride (Normal Saline 0.9%) 1,000 mls @ 1,000 mls/hr IV BOLUS ONE Stop: 11/11/23 15:57 Last Infusion: 11/11/23 16:16 Dose: Infused Documented By: Admin: 11/11/23 15:06 Dose: 1,000 mls/hr Documented By: MIRIAM Metoclopramide HCl (Metoclopramide 10 Mg/2 Ml Inj) 10 mg IV NOW ONE Stop: 11/11/23 14:59 Last Admin: 11/11/23 15:03 Dose: 10 mg Documented By: MIRIAM Vital Signs Vital signs: Vital Signs - 8 hr 11/11/23 14:25 11/11/23 14:27 11/11/23 14:30 Temperature 98.7 F Pulse Rate 101 H 105 H 85 Respiratory Rate 19 22 20 Blood Pressure 187/88 H Pulse Oximetry 97 96 97 Oxygen Delivery Method Room Air 11/11/23 15:00 11/11/23 15:09 11/11/23 15:09 Temperature Pulse Rate 76 72 Respiratory Rate 17 20 Blood Pressure 175/82 H Pulse Oximetry 93 93 Oxygen Delivery Method 11/11/23 15:12 11/11/23 15:12 11/11/23 15:31 Temperature Pulse Rate 72 74 Respiratory Rate 21 Blood Pressure 144/78 H Pulse Oximetry 94 96 Oxygen Delivery Method 11/11/23 16:00 11/11/23 16:30 11/11/23 16:32 Temperature Pulse Rate 70 90 Respiratory Rate 22 Blood Pressure 169/78 H Pulse Oximetry 95 92 Oxygen Delivery Method 11/11/23 16:32 Temperature Pulse Rate 77 Respiratory Rate 23 Blood Pressure Pulse Oximetry 97 Oxygen Delivery Method MDM - Headache Differential Diagnosis Differential diagnosis: Likely migraine, tension headache and subarachnoid hemorrhage Lab Data 11/11/23 14:43 11/11/23 14:43 Labs: Lab Results 11/11/23 Range/Units 14:43 WBC 5.5 (4.5-11.0) X10^3/uL RBC 4.18 (4.0-5.2) X10^6/uL Hgb 9.0 L (12.0-16.0) g/dL Hct 28.1 L (36-46) % MCV 67.4 L (80-100) fL MCH 21.6 L (26-34) PG MCHC 32.0 (30-36) % RDW 15.8 H (11.6-14.8) % Plt Count 282 (150-400) X10^3/uL Neut % (Auto) Not Reportable Lymph % (Auto) Not Reportable [place] % (Auto) Not Reportable Eos % (Auto) Not Reportable Baso % (Auto) Not Reportable Lymph # (Auto) Not Reportable [place] # (Auto) Not Reportable Baso # (Auto) Not Reportable Total Counted 100 Seg Neutrophils % 75.0 H (38-70) % Lymphocytes % (Manual) 15.0 L (25-45) % Monocytes % (Manual) 8.0 (2-11) % Eosinophils % (Manual) 2.0 (2-4) % Neutrophils # (Manual) 4125 (9626-9239) /uL RBC Morphology See below Anisocytosis 2+ H Microcytosis 2+ H Ovalocytes 1+ H Schistocytes 1+ H Sodium 135 L (137-145) mmol/L Potassium 3.3 L (3.4-5.1) mmol/L Chloride 103 (98-107) mmol/L Carbon Dioxide 23 (22-32) mmol/L BUN 17 (7-17) mg/dL Creatinine 1.08 H (0.52-1.04) mg/dL Estimated GFR 57 L (>60) mL/min BUN/Creatinine Ratio 15.7 (6-22) Glucose 114 H (80-110) mg/dL Calcium 9.4 (8.4-10.2) mg/dL Total Bilirubin 0.4 (0.2-1.3) mg/dL AST 30 (14-36) IU/L ALT 18 (<35) IU/L Alkaline Phosphatase 83 (38-126) U/L Total Protein 7.2 (6.3-8.2) g/dL Albumin 3.9 (3.5-5.0) g/dL Globulin 3.3 (1.7-4.1) g/dL Albumin/Globulin Ratio 1.2 (1.0-2.8) Imaging Data CT scan - head: Radiologist's Impression: PROCEDURE: CT HEAD/BRAIN WO CON INDICATIONS: MOSCOSO X 5 DAYS, HX BREAST CA TECHNIQUE: Noncontrast 4.5 mm thick angled axial sections acquired from the foramen magnum to the vertex, with coronal and sagittal reformats. For radiation dose reduction, the following was used: automated exposure control, adjustment of mA and/or kV according to patient size. COMPARISON: Prior examinations are currently on available for comparison. FINDINGS: Image quality: Diagnostic. CSF spaces: Basal cisterns are patent. No extra-axial fluid collections. The ventricles are symmetric in size and shape. Brain: No intracranial bleeds or masses. There is cerebral volume loss for age, with resultant ventricular and sulcal prominence. There are periventricular and deep white matter chronic small vessel ischemic changes. T old right basal ganglia lacunar infarction here is intracranial internal carotid artery atherosclerosis. Skull and face: Calvarium and visualized facial bones appear intact, without suspicious lesions. Sinuses: Visualized sinuses and mastoids are clear. IMPRESSION: 1. No acute intracranial process. 2. Age-related volume loss, small vessel ischemic change, old right basal ganglia lacunar infarction Dictated by: Doug Perez M.D. on 11/11/2023 at 16:37 Approved by: Doug Perez M.D. on 11/11/2023 at 16:52 MDM Narrative Medical decision making narrative: Headache and sinus congestion. Patient incidentally noted an episode of blood in her stools today, denying abdominal pain. Not on blood thinners. CT brain negative for acute findings. Patient given medications for headache with improvement in symptoms. No evidence of sinusitis on CT, it at any rate, patient's symptoms have been only present for a few days, likely viral in nature and no indication for antibiotics at this time. Patient's hemoglobin is 9.0 today, last value from March of 2023 10.9. Patient informed of lab and imaging findings. Recommended close PCP follow up as well as either General surgery or GI for colonoscopy. Discharge Plan Departure Patient Disposition: Home Clinical Impression: Headache, Nausea, Blood in stool Instructions: DI for Headache Activity Restrictions/Additional Instructions: Your laboratory work shows your hemoglobin is 9.0, which is roughly average for you (range between 9-11). The CT of your brain did not show any findings like sinusitis or an infection or mass. You may take 1000 mg of Tylenol for your headache up to 4 times daily. Nausea medication has been sent to your pharmacy. For the blood that you reported in your stools you need to follow up with a GI doctor or a general surgeon to talk about undergoing colonoscopy, a referral to a general surgeon has been provided and I recommend that you call them for an appointment. You may use Mucinex or Sudafed for sinus congestion. Be aware that Sudafed may raise your blood pressure Prescriptions: New ondansetron 4 mg tablet,disintegrating 4 mg PO Q8H PRN (Reason: nausea and vomiting) Qty: 30 0RF No Action levothyroxine 50 mcg capsule 50 mcg PO DAILY lisinopril 5 mg tablet 5 mg PO BID sertraline 100 mg tablet 100 mg PO DAILY aspirin [Adult Low Dose Aspirin] 81 mg tablet,delayed release (DR/EC) 81 mg PO DAILY albuterol sulfate [Ventolin HFA] 1 puff inhalation DAILY tiotropium bromide [Spiriva Respimat] 1 puff inhalation DAILY acetaminophen [Tylenol] 325 mg capsule 650 mg PO QID PRN (Reason: pain) Qty: 60 0RF sennosides [senna] 8.6 mg Tablet 17.2 mg PO BEDTIME Qty: 30 0RF ondansetron 4 mg Tablet,Disintegrating 4 mg PO Q6H PRN (Reason: Nausea And Vomiting) Qty: 60 1RF Rx Instructions: take 1 tab by mouth and let dissolve as needed every 6 hrs for nausea and vomiting magnesium hydroxide [Milk of Magnesia] 400 mg/5 mL suspension 30 ml PO BEDTIME PRN (Reason: Constipation) ondansetron 8 mg Tablet,Disintegrating 8 mg PO Q8H Qty: 30 0RF trazodone 100 mg Tablet 100 mg PO BEDTIME anastrozole 1 mg Tablet 1 mg PO DAILY Qty: 90 3RF Verzenio 150 mg Tablet 150 mg PO BID Qty: 60 11RF hydrocodone-acetaminophen 5-325 mg tablet 1 tab PO Q6H PRN (Reason: pain) Qty: 10 0RF Referrals: Paulette Montgomery MD [Primary Care Provider] - Derian Can MD [Physician] - Stand Alone Forms: Patient Portal/API
[2023-11-11] MEDS: METOCLOPRAMIDE 10 MG/2 ML INJ IV (15:03)
[2023-11-11] MEDS: diphenhydrAMINE 50 MG/ML VIAL IV (15:03)
[2023-11-11] MEDS: SODIUM CHLORIDE 0.9% 1,000 ML 1000 ML IV (15:06)
[2023-11-11 15:09] LABS: Alanine Aminotransferase 18 IU/L (<35); Albumin 3.9 g/dL (3.5-5.0); Albumin Globulin Ratio 1.2 (1.0-2.8); Alkaline Phosphatase 83 U/L (38-126); Aspartate Aminotransferase 30 IU/L (14-36); BUN Creatinine Ratio 15.7 (6-22); Bilirubin Total 0.4 mg/dL (0.2-1.3); Blood Urea Nitrogen 17 mg/dL (7-17); Calcium 9.4 mg/dL (8.4-10.2); Carbon Dioxide 23 mmol/L (22-32); Chloride 103 mmol/L (98-107); Estimated Glomerular Filt Rate 57 mL/min (>60); Globulin 3.3 g/dL (1.7-4.1); Glucose 114 mg/dL (80-110); HEMOLYSIS < 15 (0-50); Potassium 3.3 mmol/L (3.4-5.1); Sodium 135 mmol/L (137-145); Total Protein 7.2 g/dL (6.3-8.2)
[2023-11-11 15:11] LABS: Add Manual Diff / Slide Review YES; Hematocrit 28.1 % (36-46); Mean Corpuscular Hemoglobin 21.6 PG (26-34); Mean Corpuscular Volume 67.4 fL (80-100); Platelet Count 282 X10^3/uL (150-400); Red Blood Cell Count 4.18 X10^6/uL (4.0-5.2); Red Cell Distribution Width 15.8 % (11.6-14.8); White Blood Cell Count 5.5 X10^3/uL (4.5-11.0)
[2023-11-11 15:28] LABS: Neutrophils Absolute Manual 4125 /uL (3000-5900); Total Cells Counted 100
[2023-11-11 15:30] LABS: Anisocytosis 2+; Microcytosis 2+; Ovalocytes 1+
[2023-11-11 15:34] LABS: Schistocytes 1+
== END 2023-11-11 17:15 | disposition home or self-care (01) ==
PROVIDERS: Emergency Provider Emergency Medicine; PCP Family Medicine
DX: R51.9 Headache, unspecified (principal); K92.1 Melena; R11.2 Nausea with vomiting, unspecified; Z79.899 Other long term (current) drug therapy
CPT/HCPCS: 36415; 70450; 80053; 85007; 85025; 93005; 96361; 96374; 96375; 99284; J1200; J2765

== ENCOUNTER → 2024-05-04 14:11 | Outpatient (CLI) | payer MEDICARE, MEDICAID, SELFPAY ==
[2022-04-15 02:30] VITALS: BMI 21.1
--- NOTE | 2024-05-04 14:16 | DI.RAD.S_ITS ---
PROCEDURE: XR CHEST 2V INDICATIONS: COPD exacrebation TECHNIQUE: 2 views of the chest were acquired. COMPARISON: [facility], CR, XR CHEST 1V, 03/29/2023, 13:18. [facility], CR, XR CHEST 1V, 04/14/2022, 22:58. FINDINGS: Surgical changes and devices: Scattered chest wall clips. Lungs and pleura: No dense airspace disease or pleural effusions. Possible mild opacity at the left lung base. Mediastinum: Cardiomediastinal contours are unchanged. The aorta is tortuous. Prominent appearance of the right hilum is similar to prior, not well assessed on radiography. Bones and chest wall: Spinal curvature is present. IMPRESSION: Questionable left lung base opacity may represent atelectasis versus air early airspace disease. Given provided COPD history, consider surveillance imaging or enrollment in low-dose lung cancer screening. Dictated by: John Corrales M.D. on 05/04/2024 at 17:47 Approved by: John Corrales M.D. on 05/04/2024 at 17:49
== END ==
PROVIDERS: PCP Family Medicine; Referring Provider Family Medicine; Visit Provider Family Medicine
DX: J43.2 Centrilobular emphysema (principal)
CPT/HCPCS: 71046

== ENCOUNTER → 2024-05-24 13:00 | Outpatient (CLI) | payer MEDICARE, MEDICAID, SELFPAY ==
[2022-04-15 02:30] VITALS: BMI 21.1
--- NOTE | 2024-05-24 | DI.RAD.S_ITS ---
PROCEDURE: XR DEXA AXIAL SKELETON INDICATIONS: OSTEOPOROSIS SCREENING COMPARISON: None. FINDINGS: Lumbar Spine: Bone mineral density 0.820 g/cm2, T score -1.8. Left Forearm: Bone mineral density 0.609 g/cm2, T score -1.4. Fracture Risk Calculation (when applicable): Not applicable (T score greater or equal to -1.0 to: NORMAL) (T score from -1.1 to -2.4: OSTEOPENIA) (T score less than or equal to -2.5: OSTEOPOROSIS) IMPRESSION: Ndyb-pb-[id number] osteopenia. Follow-up guidelines as follows: Osteoporosis: Consider a repeat DEXA and Vertebral Fracture Assessment (VFA) exam in 2 years or sooner if medically necessary, to reassess this patient's status. Osteopenia: Consider a repeat DEXA in 2-3 years to reassess this patient's status, or if there is a new clinical indication. Normal: Consider a repeat DEXA in 5 years or sooner, or if there is a new clinical indication. All treatment decisions require clinical judgment and consideration of individual patient factors, including patient preferences, comorbidities, previous drug use, risk factors not captured in the FRAX model (e.g., frailty, falls, vitamin D deficiency, increased bone turnover, interval significant decline in bone density ) and possible under- or over-estimation of fracture risk by FRAX. In addition, the NOF Guide recommends that FDA-approved medical therapies be considered in postmenopausal women and men age >= 50 years with a: * Hip or vertebral (clinical or morphometric) fracture * T-score of <=-2.5 at the spine or hip * Ten-year fracture probability by FRAX of >= 3% for hip fracture or >=20% for major osteoporotic fracture. Dictated by: Humera Cox M.D. on 05/24/2024 at 21:22 Approved by: Humera Cox M.D. on 05/24/2024 at 21:23
--- NOTE | 2024-05-24 | DI.CT.S_ITS ---
PROCEDURE: CT LUNG LOW DOSE SCREENING INDICATIONS: FORMER SMOKER TECHNIQUE: Noncontrast 2.0-2.5 mm thick sections acquired from the pulmonary apices to the posterior costophrenic angles. 7 mm thick axial MIP, and 5 mm coronal and sagittal reformats were then acquired. For radiation dose reduction, the following was used: automated exposure control, adjustment of mA and/or kV according to patient size. COMPARISON: [facility], CT, CT CHEST ABDOMEN PELVIS WITH CONTRAST, 02/27/2023, 12:19. FINDINGS: Image quality: Diagnostic. Lower Neck: No enlarged lymph nodes. Thyroid: No thyroid nodules which require sonographic follow up, per consensus guidelines. Axillae: No enlarged lymph nodes. Surgical clips within the right axilla. Chest Wall: Right mastectomy. Bones: Degenerative changes of the spine with dextroscoliotic curvature Lungs and Pleura: No pneumothorax or pleural effusions. Stable 3 mm posterior right upper lobe nodule (3/65). Stable 2 mm anterior right upper lobe nodule (3/83). Heart: Heart size is normal. Severe coronary artery calcifications. No pericardial effusion. Thoracic Vessels: The aorta and pulmonary arteries demonstrate normal size. Atherosclerotic vascular calcifications. Mediastinum and [place]: No enlarged lymph nodes. Esophagus: No wall thickening. No hiatal hernia. Upper Abdomen: Visualized upper abdomen solid organs and bowel loops appear normal. IMPRESSION: Stable nodules measuring 3 mm or less as above. No new or enlarging pulmonary nodules. LUNG-RADS to; continued annual screening, if eligible. Clinically Significant Non-pulmonary Findings: Severe coronary artery calcifications. Dictated by: Thierry Morales M.D. on 05/24/2024 at 15:06 Approved by: Thierry Morales M.D. on 05/24/2024 at 15:18
== END ==
PROVIDERS: PCP Family Medicine; Referring Provider Family Medicine; Visit Provider Family Medicine
DX: Z87.891 Personal history of nicotine dependence (principal); I25.10 Atherosclerotic heart disease of native coronary artery without angina pectoris; R91.8 Other nonspecific abnormal finding of lung field; Z12.2 Encounter for screening for malignant neoplasm of respiratory organs; Z13.820 Encounter for screening for osteoporosis; M85.88 Other specified disorders of bone density and structure, other site; Z78.0 Asymptomatic menopausal state
CPT/HCPCS: 71271; 77080